=== PATIENT | male | born 1985 | race Caucasian/White ===

== ENCOUNTER 2019-11-17 16:04 | Emergency (ER) | payer SELFPAY ==
[2019-11-17 16:08] VITALS: BP 129/99; PULSE 83; RESP 16; TEMP 36.7; O2SAT 96; BMI 29.1
--- NOTE | 2019-11-17 16:18 | XR_ITS ---
WS: [id number] XR mandible min 4V [id number] REASON FOR EXAM: left tm area pain, fall FINDINGS: The mandible appears to be intact with no displacement. Finding temporal mandibular joints show no abnormalities. No dental abnormalities are seen. XR/XR mandible min 4V [id number] IMPRESSION: No definite fractures are identified in the mandible.
--- NOTE | 2019-11-17 16:18 | XR_ITS ---
WS: [id number] XR hand LT min 3V* [id number] REASON FOR EXAM: fall FINDINGS: The phalanges, metacarpals, carpals are all seen in good alignment. No definite fractures o r displacements are seen. XR/XR hand LT min 3V* [id number] IMPRESSION: Normal left hand
--- NOTE | 2019-11-17 16:18 | XR_ITS ---
WS: [id number] XR wrist LT min 3V* [id number] REASON FOR EXAM: trauma FINDINGS: The ulna and radius are normal. No definite fractures are seen. The alignment is well maint ained. The carpal bones show no displacement. The metacarpals are normal XR/XR wrist LT min 3V* [id number] IMPRESSION: Normal left wrist.
--- NOTE | 2019-11-17 16:22 | ED_ITS ---
HPI - Fall General: Chief Complaint: Fall Stated Complaint: left hand/wrist pain Time Seen by Provider: 11/17/19 16:16 History of Present Illness: HPI Narrative: Patient said he fell earlier today landing on his left wrist and thumb and also on his chin. Denies LOC. Says he does have left base thumb pain left wrist pain and that his left mandible hurts. complaint: fall Onset (ago): hour(s) Fall from: standing Fall witnessed: no Place fall occurred: home Loss of consciousness: None Context: tripped/slipped Location of injury: mouth (Pain in the left mandible area) Location of injury - extremities: Left: hand (Wrist and thumb) Severity: mild Severity scale (1-10): 3 Quality: dull Associated symptoms-after fall: Reports no associated symptoms; Denies abdominal pain, chest pain or headache(s) Review of Systems Const: Denies: fever, chills or body aches Eyes: Denies: change in vision or blurry vision ENMT: Reports: other (Left mandibular pain gait area); Denies: nasal congestion Card: Denies: chest pain or shortness of breath on exertion Resp: Denies: shortness of breath, productive cough or non-productive cough GI: Denies: abdominal pain, nausea or vomiting : Denies: difficulty urinating Musc: Reports: extremity pain and joint pain Skin/Breast: Denies: rash Neuro: Denies: headache Psych: Denies: anxiety or depression Yan/Lymph: Denies: easy bruising PFSH ED PFSH: Family History (Updated 11/08/19 @ 09:37 by Cheryl Ventura LPN) Father Diabetes Other Cancer Heart disease Hypertension Stroke Social History Smoking and tobacco status: former smoker Physical Exam Const: COMMON NORMALS: no apparent distress, average body habitus and oriented x3 HENMT: COMMON NORMALS: normocephalic HEAD & SCALP: normal to inspection and normocephalic FACE & SINUS: normal facial exam, TMJ findings tender to palpation: left (Able to converse freely able to move jaw without any difficulty) and other MOUTH: TMJ findings Eye: COMMON NORMALS: conjunctivae normal GENERAL EYE: normal appearance of both eyes CONJUNCTIVA: Yes conjunctivae normal Neck/C-Spine: COMMON NORMALS: no JVD Chest: COMMONS NORMALS: inspection of chest normal Resp: COMMON NORMALS: normal respiratory effort and clear to auscultation bilaterally AUSCULTATION: clear to auscultation bilaterally Cardio: COMMON NORMALS: no JVD, regular rate and regular rhythm RATE: regular rate RHYTHM: regular rhythm GI: COMMON NORMALS: normal to inspection, nondistended, normoactive bowel sounds Extremity: COMMON NORMALS: normal to inspection and full ROM LEFT UPPER EXTREMITY: Yes wrist (Tender) Left wrist: Yes neurovascular exam (Intact) and Yes hand & digits (Tenderness at the base of thumb) Left hand and digits: Yes neurovascular exam (Intact) Neuro: COMMON NORMALS: oriented x3 Course Vital Signs: Vital signs: Vital Signs Temperature 98.1 F 11/17/19 16:08 Pulse Rate 83 11/17/19 16:08 Respiratory Rate 16 11/17/19 16:08 Blood Pressure 129/99 11/17/19 16:08 Pulse Oximetry 96 11/17/19 16:08 Coding Level of Care Code ED Pigs Feet Cleaner for Lizz Jennings
[2019-11-17 16:57] VITALS: BP 116/80; PULSE 80; RESP 16; O2SAT 96
== END 2019-11-17 16:58 | disposition home or self-care (01) ==
LOC: ER 16:52
PROVIDERS: Emergency Provider Nurse Practitioner Family
DX: M79.642 Pain in left hand (principal); M25.532 Pain in left wrist; R68.84 Jaw pain; Z87.891 Personal history of nicotine dependence
CPT/HCPCS: 12345; 70110; 73110; 73130; 99281; 99283

== ENCOUNTER → 2019-12-20 12:06 | Outpatient (BNVA) | payer OTHER, SELFPAY | PROVIDERS: Visit Provider Nurse Practitioner Family | DX: R05 Cough (principal); J40 Bronchitis, not specified as acute or chronic; Z20.828 Contact with and (suspected) exposure to other viral communicable diseases | CPT/HCPCS: 87635 ==

== ENCOUNTER 2020-03-02 21:43 | Emergency (ER) | payer SELFPAY ==
[2020-03-02 21:51] VITALS: BP 153/101; PULSE 97; RESP 16; TEMP 36.5; O2SAT 100; BMI 29.1
--- NOTE | 2020-03-02 22:09 | W.ED.SKABFB ---
HPI - Skin/Abscess/Foreign Bdy General: Chief complaint: General Medical Stated complaint: bug bite/right leg Time Seen by Provider: 03/02/20 22:08 Source: patient Mode of arrival: ambulatory Limitations: no limitations History of Present Illness: HPI narrative: Patient is a 34-year-old male who presents to ED today with a skin lesion to his right lower extremity that he noticed a few days ago. Patient states he is concerned because area seems to be enlarging. He reports mild pain above and below the lesion. He states noticed a similar lesion to his right arm just prior to coming in for evaluation. Patient tells me he has been in the [place] frequently over the past 2 weeks. No known tick bite. Patient has not been running fevers. MD complaint: lesion Onset (ago): day(s) Tetanus up to date: yes Location: RUE and RLE Quality: burning Relieving factors: none Exacerbating factors: none Associated symptoms: Reports no associated symptoms; Deny chills, fever(s), nausea or vomiting Treatments prior to arrival: other (benadryl cream/hydrocortisone cream) Review of Systems Const: Denies: fever(s), chills, body aches, fatigue or malaise Card: Denies: chest pain Resp: Denies: dyspnea GI: Denies: nausea or vomiting Musc: Denies: neck pain, back pain or joint pain Skin/Breast: Reports: new lesions Neuro: Denies: headache(s), numbness in extremities, weakness in extremities or sensory changes PFS ED PFSH: Family History (Updated 11/08/19 @ 09:37 by Cheryl Ventura LPN) Father Diabetes Other Cancer Heart disease Hypertension Stroke Social History Smoking and tobacco status: never smoked Physical Exam Const: COMMON NORMALS: no acute distress, patient oriented x3, no limitations and alert Extremity: COMMON NORMALS: normal to inspection GENERAL: Yes normal exam except as noted Neuro: COMMON NORMALS: patient oriented x3 SENSORIUM/ORIENTATION: Yes alert Skin: OTHER: pt has one small 2mm circular erythematous macule to back of R upper arm; he has another similar appearing area to R lower leg-lesion here is more scattered but erythematous and flat-area measues approximately 1cm; there is no surrounding cellulitis/streaking/swelling/drainage Course Vital Signs: Vital signs: Vital Signs Temperature 97.7 F 03/02/20 21:51 Pulse Rate 97 03/02/20 21:51 Respiratory Rate 16 03/02/20 21:51 Blood Pressure 153/101 03/02/20 21:51 Pulse Oximetry 100 03/02/20 21:51 Discharge Plan Discharge Patient Disposition: Home, Self-Care Clinical Impression: Insect bite of leg, right Qualifiers: Encounter type: initial encounter Qualified Code(s): S80.861A - Insect bite (nonvenomous), right lower leg, initial encounter Insect bite of arm, right Qualifiers: Encounter type: initial encounter Qualified Code(s): S40.861A - Insect bite (nonvenomous) of right upper arm, initial encounter Condition: Stable Prescriptions: No Action No Known Home Medications RF: 0 Discharge Orders: Discharge Order (Routine); Ordered 03/02/20 Ordered By: Stefani Canales Activity Restrictions/Additional Instructions: Please follow up with primary care or return to ED for any worsening or concerning symptoms you may have. Discharge Date/Time: 03/02/20 22:15 Coding Level of Care Code ED Manager Employee Benefits for Lizz Jennings
== END 2020-03-02 22:15 | disposition home or self-care (01) ==
PROVIDERS: Emergency Provider Physician Assistant
DX: S80.861A Insect bite (nonvenomous), right lower leg, initial encounter (principal); S40.861A Insect bite (nonvenomous) of right upper arm, initial encounter; W57.XXXA Bitten or stung by nonvenomous insect and other nonvenomous arthropods, initial encounter
CPT/HCPCS: 12345; 99281

== ENCOUNTER 2020-03-16 19:33 | Emergency (ER) | payer SELFPAY ==
--- NOTE | 2020-03-16 19:39 | XR_ITS ---
WS: [id number] PORTABLE CHEST HISTORY: cp COMPARISON: 07/13/2019 RIGHT subclavian cardiac pacer. Lungs are clear and well expanded. No pleural effusion or pneumothorax. Cardiac size: Normal. Mediastinum/Aorta: Normal mediastinum. No osseous abnormality seen. XR/XR chest 1V portable [id number] IMPRESSION: Unremarkable portable chest.
--- NOTE | 2020-03-16 19:40 | ECG_ITS ---
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 Measurements Intervals [place] Rate: 81 P: 35 NC: 192 QRS: -87 QRSD: 180 T: 76 QT: 426 QTc: 495 Interpretive Statements ELECTRONIC VENTRICULAR PACEMAKER ABNORMAL RHYTHM ECG Compared to ECG 07/13/2019 10:42:13 No significant changes Electronically Signed On 03-17-2020 7:25:36 CDT by Feliciano Gray M.D. [id number]
[2020-03-16 19:54] VITALS: BP 150/100; PULSE 86; RESP 18; TEMP 36.7; O2SAT 96; BMI 27.6
[2020-03-16 20:22] LABS: Basophils % 0.5 %; Eosinophils # 0.2 10^3/uL (0.0-0.8); Eosinophils % 2.8 %; Hemoglobin 15.7 g/dL (11.7-16.6); Lymphocytes # 2.5 10^3/uL (0.8-4.8); Lymphocytes % 32.9 %; Mean Corpuscular HGB Conc 34.9 g/dL (30.0-36.0); Mean Corpuscular Hemoglobin 29.1 pg (28.0-34.0); Mean Corpuscular Volume 83.3 fL (80-94); Mean Platelet Volume 10.6 fL (7.4-10.4); Monocytes # 0.5 10^3/uL (0.2-0.9); Neutrophils # 4.3 10^3/uL (1.8-7.7); Neutrophils % 56.5 %; Nucleated Red Blood Cells % 0 %; Platelet Count 178 10^3/cmm (130-400); Red Cell Distribution Width 12.2 % (12.1-15.1); White Blood Count 7.6 10^3/uL (4.0-10.0)
--- NOTE | 2020-03-16 20:23 | W.ED.CHESTPA ---
HPI - Chest Pain General: Chief Complaint: Chest Pain Stated Complaint: cp Time Seen by Provider: 03/16/20 20:07 Source: patient Mode of arrival: ambulatory Limitations: no limitations History of Present Illness: HPI narrative: 34-year-old male states he started chest pain 2 hours ago. He states he been working had crushing pain in the center of his chest. He has a pacemaker and checked his heart rate was 52 days concerned his pacemaker was not working. He has a history of third-degree heart block. He states he is in pain has improved here. He denies any worsening improving factors. MD complaint: chest pain Onset (ago): hour(s) Timing of current episode: constant Pain radiation: none Quality: sharp Relieving factors: nothing Exacerbating factors: nothing Associated symptoms: Deny abdominal pain, dyspnea, fever(s), nausea or vomiting Review of Systems Const: Denies: fever(s), chills, body aches or change in appetite Eyes: Denies: blurry vision or eye discomfort ENMT: Denies: throat pain or dental pain Card: Reports: chest pain Resp: Denies: dyspnea GI: Denies: abdominal pain, nausea, vomiting or diarrhea : Denies: dysuria Musc: Denies: neck pain or back pain Skin/Breast: Denies: rash Neuro: Denies: headache(s) Psych: Denies: depression Yan/Lymph: Denies: easy bruising All/Imm: Denies: urticaria PFSH ED PFSH: Family History Father Diabetes Other Cancer Heart disease Hypertension Stroke Social History Smoking and tobacco status: never smoked Physical Exam Const: COMMON NORMALS: no acute distress, patient oriented x3 and healthy appearing HENMT: COMMON NORMALS: normocephalic and atraumatic HEAD & SCALP: normocephalic and atraumatic Eye: COMMON NORMALS: Equal, round and reactive pupils present and EOMs intact bilaterally PUPIL: Yes Equal, round and reactive pupils present Neck/C-Spine: COMMON NORMALS: full ROM and supple Chest: COMMONS NORMALS: normal inspection of the chest and normal palpation of entire chest wall Resp: COMMON NORMALS: normal respiratory effort, No retractions, No use of accessory muscles and clear to auscultation bilaterally AUSCULTATION: clear to auscultation bilaterally Cardio: COMMON NORMALS: regular rate, regular rhythm and No murmurs present (Cardio) RATE: regular rate RHYTHM: regular rhythm GI: COMMON NORMALS: Normal to inspection, nondistended, normoactive bowel sounds present, Soft to palpation, non-tender and no masses PALPATION: Yes Soft to palpation Extremity: COMMON NORMALS: normal to inspection and full ROM Neuro: COMMON NORMALS: patient oriented x3, moves all extremities and no focal motor deficits Psych: COMMON NORMALS: mental status grossly normal, Normal thought process present and cooperative THOUGHT PROCESS: Normal thought process present Skin: COMMON NORMALS: no rashes or lesions noted and no wounds GENERAL SKIN EXAM: no rashes or lesions noted Course Vital Signs: Vital signs: Vital Signs Temperature 98.1 F 03/16/20 19:54 Pulse Rate 91 03/16/20 23:39 Respiratory Rate 16 03/16/20 23:39 Blood Pressure 126/76 03/16/20 23:39 Pulse Oximetry 98 03/16/20 23:39 MDM - Chest Pain MDM Narrative: Medical decision making narrative: Patient presents here with chest pain is atypical in nature. Patient was also concerned his pacemaker was not working. Had pacemaker interrogated and is functioning. Patient's initial and repeat EKGs and troponins are normal. He feels improved here and is stable for discharge. He is to follow-up with primary care doctor in 3 to 5 days return if worsening. Lab Data: Labs: Lab Results 03/16/20 03/16/20 03/16/20 Range/Units 20:12 20:12 20:12 WBC 7.6 (4.0-10.0) 10^3/ uL RBC 5.40 H (4.1-5.3) 10^6/u L Hgb 15.7 (11.7-16.6) g/dL Hct 45.0 (42.0-52.0) % MCV 83.3 (80-94) fL MCH 29.1 (28.0-34.0) pg MCHC 34.9 (30.0-36.0) g/dL RDW 12.2 (12.1-15.1) % Plt Count 178 (130-400) 10^3/c mm MPV 10.6 H (7.4-10.4) fL Neut % (Auto) 56.5 % Lymph % (Auto) 32.9 % Ransom % (Auto) 7.0 % Eos % (Auto) 2.8 % Baso % (Auto) 0.5 % Neut # (Auto) 4.3 (1.8-7.7) 10^3/u L Lymph # (Auto) 2.5 (0.8-4.8) 10^3/u L Ransom # (Auto) 0.5 (0.2-0.9) 10^3/u L Eos # (Auto) 0.2 (0.0-0.8) 10^3/u L Baso # (Auto) 0.0 (0.0-0.1) 10^3/u L Nucleated RBC % (a uto) 0 % Nucleated RBCs # 0.0 /100WBC Sodium 139 (136-145) mmol/L Potassium 4.1 (3.5-5.1) mmol/L Chloride 103 (98-107) mmol/L Carbon Dioxide 24 (22-29) mmol/L Anion Gap 16.1 (5-19) BUN 12 (6-20) mg/dL Creatinine 1.0 (0.7-1.2) mg/dL GFR Calculation 86.6 L (90-130) mL/min Glucose 116 H (65-115) mg/dL Calculated Osmolal ity 285 (285-295) mOsm/k g Calcium 10.1 (8.5-10.5) mg/dL Total Bilirubin 0.2 (0.15-1.2) mg/dL AST 5 (0-40) U/L ALT < 5 (0-41) U/L Alkaline Phosphata se 102 (40-130) IU/L Troponin T Baselin e 6 (0-15) ng/L Troponin T 120 Min [place] (0-15) ng/L Delta Troponin T (0-10) ABS# Total Protein 7.7 (6.6-8.7) g/dL Albumin 4.6 (3.5-5.2) g/dL Globulin 3.1 (1.3-4.6) g/dL 03/16/20 Range/Units 21:50 WBC (4.0-10.0) 10^3/ uL RBC (4.1-5.3) 10^6/u L Hgb (11.7-16.6) g/dL Hct (42.0-52.0) % MCV (80-94) fL MCH (28.0-34.0) pg MCHC (30.0-36.0) g/dL RDW (12.1-15.1) % Plt Count (130-400) 10^3/c mm MPV (7.4-10.4) fL Neut % (Auto) % Lymph % (Auto) % [place]ansom % (Auto) % Eos % (Auto) % Baso % (Auto) % Neut # (Auto) (1.8-7.7) 10^3/u L Lymph # (Auto) (0.8-4.8) 10^3/u L Ransom # (Auto) (0.2-0.9) 10^3/u L Eos # (Auto) (0.0-0.8) 10^3/u L Baso # (Auto) (0.0-0.1) 10^3/u L Nucleated RBC % (a uto) % Nucleated RBCs # /100WBC Sodium (136-145) mmol/L Potassium (3.5-5.1) mmol/L Chloride (98-107) mmol/L Carbon Dioxide (22-29) mmol/L Anion Gap (5-19) BUN (6-20) mg/dL Creatinine (0.7-1.2) mg/dL GFR Calculation (90-130) mL/min Glucose (65-115) mg/dL Calculated Osmolal ity (285-295) mOsm/k g Calcium (8.5-10.5) mg/dL Total Bilirubin (0.15-1.2) mg/dL AST (0-40) U/L ALT (0-41) U/L Alkaline Phosphata se (40-130) IU/L Troponin T Baselin e (0-15) ng/L Troponin T 120 Min [place] 6.00 (0-15) ng/L Delta Troponin T 0 (0-10) ABS# Total Protein (6.6-8.7) g/dL Albumin (3.5-5.2) g/dL Globulin (1.3-4.6) g/dL Imaging Data^: CXR: Attestation: I personally reviewed and interpreted this imaging study as follows: My impression: no acute abnormality EKG Data^: EKG 1: Attestation: I personally reviewed and interpreted this EKG as follows: EKG interpretation date: 03/16/20 EKG interpretation time: 19:52 Interpretation: ventricular pacemaker hr [address] or t wave abnormalities qrs 180 qtc 463 EKG 2: Attestation: I personally reviewed and interpreted this EKG as follows: EKG interpretation date: 03/16/20 EKG interpretation time: 21:57 Interpretation: atrial pacemaker hr [address] or t wave abnormalities qrs 189 qtc 472 Discharge Plan Discharge Patient Disposition: Home, Self-Care Clinical Impression: Chest pain Qualifiers: Chest pain type: unspecified Qualified Code(s): R07.9 - Chest pain, unspecified Condition: Stable Prescriptions: No Action No Known Home Medications RF: 0 Discharge Orders: Discharge Order (Routine); Ordered 03/16/20 Ordered By: Trace Peck Referrals: Man Walker MD [Physician] - 1-3 days Discharge Diet: Advance as tolerated Discharge Activity: Resume usual activity Patient Instructions: Chest Pain (ED) Coding Level of Care Code ED Construction Driver for Chg Fwd Exam Comprehensive
[2020-03-16 20:40] LABS: Albumin Level 4.6 g/dL (3.5-5.2); Alkaline Phosphatase 102 IU/L (40-130); Anion Gap 16.1 (5-19); Blood Urea Nitrogen 12 mg/dL (6-20); Calcium 10.1 mg/dL (8.5-10.5); Carbon Dioxide 24 mmol/L (22-29); Chloride 103 mmol/L (98-107); Globulin 3.1 g/dL (1.3-4.6); Glomerular Filtration Rate 86.6 mL/min (90-130); Glucose 116 mg/dL (65-115); Osmolality Calculated 285 mOsm/kg (285-295); Potassium 4.1 mmol/L (3.5-5.1); Sodium 139 mmol/L (136-145); Total Bilirubin 0.2 mg/dL (0.15-1.2); Total Protein 7.7 g/dL (6.6-8.7)
[2020-03-16 20:41] VITALS: BP 162/100; PULSE 82; RESP 15; O2SAT 97
[2020-03-16 20:51] LABS: Alanine Aminotransferase < 5 U/L (0-41); Aspartate Amino Transferase 5 U/L (0-40)
--- NOTE | 2020-03-16 21:40 | ECG_ITS ---
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 Measurements Intervals [place] Rate: 73 P: 30 ND: 175 QRS: -90 QRSD: 189 T: 74 QT: 446 QTc: 494 Interpretive Statements ELECTRONIC ATRIAL PACEMAKER ELECTRONIC VENTRICULAR PACEMAKER ABNORMAL RHYTHM ECG Compared to ECG 07/13/2019 10:42:13 No significant changes Electronically Signed On 03-17-2020 7:27:01 CDT by Feliciano Gray M.D. [email or web address]
[2020-03-16 21:47] VITALS: BP 123/87; PULSE 78; O2SAT 97
[2020-03-16 21:59] LABS: Troponin(5th) Baseline 6 ng/L (0-15)
[2020-03-16 22:10] LABS: Troponin 5 2HR Delta 0 ABS# (0-10)
[2020-03-16 22:55] VITALS: BP 128/80; PULSE 80; RESP 18; O2SAT 100
--- NOTE | 2020-03-16 23:23 | PC.NURSE ---
ATTEMPTED TO CALL [employer] FOR PACEMAKER INTERROGTION
[2020-03-16 23:39] VITALS: BP 126/76; PULSE 91; RESP 16; O2SAT 98
== END 2020-03-17 00:36 | disposition home or self-care (01) ==
PROVIDERS: Emergency Provider Emergency Medicine
DX: R07.9 Chest pain, unspecified (principal)
CPT/HCPCS: 12345; 71045; 80053; 84484; 85025; 93005; 99283; 99284

== ENCOUNTER 2020-05-15 21:10 | Emergency (ER) | payer SELFPAY ==
[2020-05-15 21:14] VITALS: BP 138/86; PULSE 96; RESP 19; TEMP 36.6; O2SAT 97; BMI 29.1
--- NOTE | 2020-05-15 21:26 | XRR_ITS ---
PROCEDURE INFORMATION: Exam: XR Chest, 1 View Exam date and time: 05/15/2020 9:52 PM Age: 34 years old Clinical indication: Cough TECHNIQUE: Imaging protocol: XR of the chest Views: 1 view. COMPARISON: CR XR chest 1V portable [id number] 03/16/2020 8:08 PM FINDINGS: Tubes, catheters and devices: Atrioventricular pacemaker. Lungs: Hyperinflation and mild interstitial prominence without acute infiltrate. Pleural space: No pleural effusion. Heart/Mediastinum: No cardiomegaly. Bones/joints: Median sternotomy. When correlating with the previous study, no significant interval changes are present. XR/XR chest 1V portable [id number] IMPRESSION: Hyperinflation and mild interstitial prominence without acute infiltrate.
--- NOTE | 2020-05-15 21:38 | W.ED.GENADLT ---
HPI - General Adult General: Chief complaint: General Medical Stated complaint: covid symptoms Time Seen by Provider: 05/15/20 21:21 Source: patient Mode of arrival: ambulatory Limitations: no limitations History of Present Illness: HPI narrative: Frankie is a 34-year-old male who comes in complaining of productive cough, muscle aches and pains and malaise. Symptoms have been present for 1 week. Patient was not concerned about the symptoms for himself but when his found out he was feeling this way she instructed him to come to the hospital. He is not noticed anything that makes his symptoms better or worse. Patient states that he feels tired and fatigued but has not had a fever. He denies any sore throat, loss of sense of taste or loss of sense of smell. Patient does not have any no known covert exposures. He states he otherwise feels okay just tired and fatigued primarily. Associated symptoms: Reports malaise; Deny chest pain, confusion, diaphoresis, dyspnea, headache(s), nausea, rash, palpitations, syncope or vomiting Review of Systems Const: Reports: body aches, fatigue and malaise; Denies: fever(s), chills or diaphoresis Eyes: Denies: change in vision, blurry vision, photophobia, eye discomfort, eye discharge or eye redness ENMT: Denies: throat pain, odynophagia, hoarseness, swelling of lips/tongue, ear or mastoid pain, ear discharge, change in hearing or nasal discharge Card: Denies: chest pain, palpitations, irregular heart rhythm, edema, lightheadedness, syncope, pre-syncope, dyspnea on exertion or orthopnea Resp: Reports: productive cough; Denies: dyspnea, non-productive cough, wheezing, hemoptysis or chest congestion GI: Denies: abdominal pain, nausea, vomiting, hematemesis, coffee ground emesis, heartburn, diarrhea, constipation, GI cramping, hematochezia or melena : Denies: flank pain, dysuria, urinary frequency, urinary urgency or hematuria Musc: Denies: neck pain, back pain, extremity pain, extremity swelling, joint pain, joint swelling, joint redness, joint warmth or joint stiffness Skin/Breast: Denies: rash, pruritus, erythema or skin tenderness Neuro: Denies: headache(s), numbness in extremities, weakness in extremities, sensory changes, lack of coordination, difficulty walking, dizziness, vertigo, confusion, Slurred speech present or seizure-like activity Yan/Lymph: Denies: easy bruising, easy bleeding, petechiae, purpura or enlarged lymph nodes All/Imm: Denies: urticaria, throat swelling, tongue swelling, facial swelling or acute wheezing PFSH ED PFSH: Medical History AV heart block CHF (congestive heart failure) Congenital heart disease GERD (gastroesophageal reflux disease) HTN (hypertension) Seizure SVT (supraventricular tachycardia) VSD (ventricular septal defect) Surgical History History of cardiac radiofrequency ablation (RFA) S/P appendectomy S/P cardiac pacemaker procedure S/P knee surgery S/P knee surgery Left S/P rotator cuff repair Left 08/26/2014 S/P tonsillectomy S/P vasectomy Family History Father Diabetes Other Cancer Heart disease Hypertension Stroke Social History Smoking and tobacco status: never smoked Physical Exam Const: COMMON NORMALS: no acute distress, patient oriented x3, no limitations, healthy appearing and well nourished GENERAL APPEARANCE: cooperative, well kempt and well developed HENMT: COMMON NORMALS: normocephalic, atraumatic, external ears normal, EAC's normal and Normal external nose present HEAD & SCALP: normal to inspection, normocephalic and atraumatic FACE & SINUS: normal facial exam and face symmetric NOSE: Normal external nose present and Normal nares present EXTERNAL EAR: Yes external ears normal EXTERNAL AUDITORY CANAL: EAC's normal MOUTH: Normal oral and palatal mucosa present, lip normal and tongue normal Eye: COMMON NORMALS: Equal, round and reactive pupils present and conjunctivae normal GENERAL EYE: appearance normal, both eyes and all related structures ALIGNMENT: Yes alignment normal PERIORBITAL: periorbital findings normal EYELID: eyelids normal CONJUNCTIVA: Yes conjunctivae normal SCLERA: sclerae normal PUPIL: Yes Equal, round and reactive pupils present Neck/C-Spine: COMMON NORMALS: full ROM, no lymphadenopathy, supple, no meningeal signs and no JVD GENERAL: Yes normal visual inspection and Yes trachea midline Chest: COMMONS NORMALS: normal inspection of the chest and normal palpation of entire chest wall Resp: COMMON NORMALS: normal respiratory effort, No retractions, No use of accessory muscles and clear to auscultation bilaterally EFFORT & INSPECTION: Yes able to speak in complete sentences and Yes symmetric chest movement AUSCULTATION: clear to auscultation bilaterally, no crackles, no rales, no rhonchi and no wheezes Cardio: COMMON NORMALS: no JVD, regular rate, regular rhythm, S1 normal heart sound present and S2 normal heart sound present RATE: regular rate RHYTHM: regular rhythm HEART SOUNDS: S1 normal heart sound present, S2 normal heart sound present, no click, no gallops, no murmurs, no rubs and abnormal split S2 GI: COMMON NORMALS: Soft to palpation and No hepatosplenomegaly present PALPATION: Yes Soft to palpation, No Tenderness to palpation present (GI), No Guarding due to palpation present (GI), No Rigid due to palpation, Yes No hepatosplenomegaly present, No Hernia present, No Palpable mass present and No Pulsatile mass present : COMMON NORMALS: Yes no CVA tenderness BLADDER/KIDNEY EXAM: Yes no CVA tenderness Back/Pelvis: COMMON NORMALS: no CVA tenderness, thoracic and lumbar spine normal to inspection, no thoracic nor lumbar tenderness and thoraco-lumbar ROM normal Extremity: COMMON NORMALS: normal to inspection, full ROM, capillary refill normal, no joint enlargement, no clubbing, cyanosis or edema and no calf tenderness Neuro: COMMON NORMALS: patient oriented x3, CN's II-XII intact bilaterally, moves all extremities, no focal motor deficits and no sensory deficits noted MENINGEAL SIGNS: Yes no meningeal signs SPEECH: speech normal Psych: COMMON NORMALS: mental status grossly normal, Normal thought process present, cooperative, normal affect, speech normal and activity/motor behavior normal APPEARANCE: Yes well kempt SPEECH: Yes normal speech THOUGHT PROCESS: Normal thought process present Skin: COMMON NORMALS: no rashes or lesions noted, turgor normal, no jaundice, no petechiae and no mottling GENERAL SKIN EXAM: no rashes or lesions noted and turgor normal Course Vital Signs: Vital signs: Vital Signs Temperature 98.7 F 05/15/20 23:12 Pulse Rate 72 05/15/20 23:12 Respiratory Rate 16 05/15/20 23:12 Blood Pressure 130/74 05/15/20 23:12 Pulse Oximetry 100 05/15/20 23:12 MDM - General Adult MDM Narrative: Medical decision making narrative: Frankie is a nice 34-year-old male who comes in with flulike symptoms. His flu is negative, his COVID-19 is negative and his chest x-ray is clear. There is no sign of urinary tract infection. I have informed him this still could be some type of viral syndrome. Because of his wheezing and productive cough I will go and place him on antibiotics. Place him on steroids and give him an inhaler as well. He agrees to return should her symptoms change or worsen but at this time he is ready for discharge. I see evidence of acute life-threatening problem at this time. Lab Data: Labs: Lab Results 05/15/20 05/15/20 05/15/20 Range/Units 21:40 21:40 21:40 WBC 7.5 (4.0-10.0) 10^3/ uL RBC 5.51 H (4.1-5.3) 10^6/u L Hgb 15.7 (11.7-16.6) g/dL Hct 46.5 (42.0-52.0) % MCV 84.4 (80-94) fL MCH 28.5 (28.0-34.0) pg MCHC 33.8 (30.0-36.0) g/dL RDW 12.2 (12.1-15.1) % Plt Count 175 (130-400) 10^3/c mm MPV 10.8 H (7.4-10.4) fL Neut % (Auto) 61.6 % Lymph % (Auto) 28.9 % [place] % (Auto) 6.0 % Eos % (Auto) 2.8 % Baso % (Auto) 0.4 % Neut # (Auto) 4.62 (1.8-7.7) 10^3/u L Lymph # (Auto) 2.2 (0.8-4.8) 10^3/u L [place] # (Auto) 0.5 (0.2-0.9) 10^3/u L Eos # (Auto) 0.2 (0.0-0.8) 10^3/u L Baso # (Auto) 0.0 (0.0-0.1) 10^3/u L Nucleated RBC % (a uto) 0 % Nucleated RBCs # 0.0 /100WBC Sodium 144 (136-145) mmol/L Potassium 3.4 L (3.5-5.1) mmol/L Chloride 106 (98-107) mmol/L Carbon Dioxide 27 (22-29) mmol/L Anion Gap 14.4 (5-19) BUN 8 (6-20) mg/dL Creatinine 1.0 (0.7-1.2) mg/dL GFR Calculation 86.6 L (90-130) mL/min Glucose 108 (65-115) mg/dL Calculated Osmolal ity 294 (285-295) mOsm/k g Calcium 9.8 (8.5-10.5) mg/dL Total Bilirubin 0.3 (0.15-1.2) mg/dL AST 34 (0-40) U/L ALT 25 (0-41) U/L Alkaline Phosphata se 101 (40-130) IU/L Total Protein 8.2 (6.6-8.7) g/dL Albumin 4.9 (3.5-5.2) g/dL Globulin 3.3 (1.3-4.6) g/dL Urine Color (Yellow) Urine Appearance (CLEAR) Urine pH (5-7) Ur Specific Gravit y (1.005-1.030) Urine Protein (Negative) Urine Glucose (UA) (Normal) Urine Ketones (Negative) Urine Blood (Negative) Urine Nitrate (Negative) Urine Bilirubin (NEGATIVE) Urine Urobilinogen (Negative) mg/dL Ur Leukocyte Malena ase (Negative) Influenza Type A A g (Negative) Influenza Type B A g (Negative) SARS-CoV-2 Ag (Rap id) Negative (Negative) 05/15/20 05/15/20 Range/Units 22:25 22:25 WBC (4.0-10.0) 10^3/ uL RBC (4.1-5.3) 10^6/u L Hgb (11.7-16.6) g/dL Hct (42.0-52.0) % MCV (80-94) fL MCH (28.0-34.0) pg MCHC (30.0-36.0) g/dL RDW (12.1-15.1) % Plt Count (130-400) 10^3/c mm MPV (7.4-10.4) fL Neut % (Auto) % Lymph % (Auto) % [place] % (Auto) % Eos % (Auto) % Baso % (Auto) % Neut # (Auto) (1.8-7.7) 10^3/u L Lymph # (Auto) (0.8-4.8) 10^3/u L [place] # (Auto) (0.2-0.9) 10^3/u L Eos # (Auto) (0.0-0.8) 10^3/u L Baso # (Auto) (0.0-0.1) 10^3/u L Nucleated RBC % (a uto) % Nucleated RBCs # /100WBC Sodium (136-145) mmol/L Potassium (3.5-5.1) mmol/L Chloride (98-107) mmol/L Carbon Dioxide (22-29) mmol/L Anion Gap (5-19) BUN (6-20) mg/dL Creatinine (0.7-1.2) mg/dL GFR Calculation (90-130) mL/min Glucose (65-115) mg/dL Calculated Osmolal ity (285-295) mOsm/k g Calcium (8.5-10.5) mg/dL Total Bilirubin (0.15-1.2) mg/dL AST (0-40) U/L ALT (0-41) U/L Alkaline Phosphata se (40-130) IU/L Total Protein (6.6-8.7) g/dL Albumin (3.5-5.2) g/dL Globulin (1.3-4.6) g/dL Urine Color Yellow (Yellow) Urine Appearance Clear (CLEAR) Urine pH 6.5 (5-7) Ur Specific Gravit y 1.020 (1.005-1.030) Urine Protein Neg (Negative) Urine Glucose (UA) Norm (Normal) Urine Ketones Negative (Negative) Urine Blood Neg (Negative) Urine Nitrate Negative (Negative) Urine Bilirubin Neg (NEGATIVE) Urine Urobilinogen 4 H (Negative) mg/dL Ur Leukocyte Malena ase Negative (Negative) Influenza Type A A g Negative (Negative) Influenza Type B A g Negative (Negative) SARS-CoV-2 Ag (Rap id) (Negative) Imaging Data^: CXR: Attestation: I personally reviewed and interpreted this imaging study as follows: My impression: No acute cardiopulmonary findings. Discharge Plan Discharge Patient Disposition: Home Clinical Impression: Bronchitis Condition: Stable Prescriptions: New prednisone 10 mg tablet 20 mg PO BID 5 Days Qty: 20 RF: 0 albuterol sulfate 90 mcg/actuation HFA aerosol inhaler 2 inh INHALATION Q4H PRN (Reason: shortness of breath or wheezing) Qty: 6.7 RF: 0 Augmentin 875-125 mg tablet 1 tab PO BID 10 Days Qty: 20 RF: 0 No Action Pain Relief Adult 500 mg/15 mL Liquid 1,000 mg PO Q6H PRN (Reason: HEADACHES) RF: 0 Discharge Orders: Discharge Order (Routine); Ordered 05/15/20 Ordered By: Ana Morse Referrals: Jessica Velez DO [Physician] - 1-3 days Discharge Diet: Advance as tolerated Discharge Activity: Increase activity as tolerated Patient Instructions: Acute Bronchitis (ED) Activity Restrictions/Additional Instructions: Please return to the ER immediately for any of the signs or symptoms listed on your discharge instruction sheets, worsening/changing of your symptoms, you are not getting better as quickly as expected, or for ANY other cause or concerns. 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
[2020-05-15 22:15] LABS: Basophils % 0.4 %; Eosinophils # 0.2 10^3/uL (0.0-0.8); Eosinophils % 2.8 %; Hematocrit 46.5 % (42.0-52.0); Hemoglobin 15.7 g/dL (11.7-16.6); Lymphocytes # 2.2 10^3/uL (0.8-4.8); Lymphocytes % 28.9 %; Mean Corpuscular HGB Conc 33.8 g/dL (30.0-36.0); Mean Corpuscular Hemoglobin 28.5 pg (28.0-34.0); Mean Corpuscular Volume 84.4 fL (80-94); Mean Platelet Volume 10.8 fL (7.4-10.4); Monocytes # 0.5 10^3/uL (0.2-0.9); Neutrophils # 4.62 10^3/uL (1.8-7.7); Neutrophils % 61.6 %; Nucleated Red Blood Cells % 0 %; Platelet Count 175 10^3/cmm (130-400); Red Blood Count 5.51 10^6/uL (4.1-5.3); Red Cell Distribution Width 12.2 % (12.1-15.1); White Blood Count 7.5 10^3/uL (4.0-10.0)
[2020-05-15 22:24] LABS: SARS Covid-2 Antigen Negative (Negative)
[2020-05-15 22:26] LABS: Alanine Aminotransferase 25 U/L (0-41); Albumin Level 4.9 g/dL (3.5-5.2); Alkaline Phosphatase 101 IU/L (40-130); Anion Gap 14.4 (5-19); Aspartate Amino Transferase 34 U/L (0-40); Blood Urea Nitrogen 8 mg/dL (6-20); Calcium 9.8 mg/dL (8.5-10.5); Carbon Dioxide 27 mmol/L (22-29); Chloride 106 mmol/L (98-107); Globulin 3.3 g/dL (1.3-4.6); Glomerular Filtration Rate 86.6 mL/min (90-130); Glucose 108 mg/dL (65-115); Osmolality Calculated 294 mOsm/kg (285-295); Potassium 3.4 mmol/L (3.5-5.1); Sodium 144 mmol/L (136-145); Total Bilirubin 0.3 mg/dL (0.15-1.2); Total Protein 8.2 g/dL (6.6-8.7)
[2020-05-15 22:47] LABS: Add Urine Microscopic? NO
[2020-05-15] MEDS: albuterol 8 gm MDI 2 PUFF INHALATION (23:03)
[2020-05-15 23:04] VITALS: PULSE 90; RESP 16; O2SAT 98
[2020-05-15 23:06] LABS: Influenza A by IFA Negative (Negative); Influenza B by IFA Negative (Negative)
[2020-05-15 23:12] VITALS: BP 130/74; PULSE 72; RESP 16; TEMP 37.1; O2SAT 100
[2020-05-15 23:12] LABS: Bilirubin Urine Neg (NEGATIVE); Blood Urine Neg (Negative); Glucose Urine UA Norm (Normal); Ketones Urine Negative (Negative); Leukocyte Esterase Urine Negative (Negative); Nitrate Urine Negative (Negative); Protein Urine Neg (Negative); Urine Appearance Clear (CLEAR); Urine Color Yellow (Yellow); Urobilinogen Urine 4 mg/dL (Negative); pH Urine 6.5 (5-7)
== END 2020-05-15 23:13 | disposition home or self-care (01) ==
PROVIDERS: Emergency Provider Emergency Medicine
DX: J40 Bronchitis, not specified as acute or chronic (principal); I11.0 Hypertensive heart disease with heart failure; I50.9 Heart failure, unspecified; Z95.0 Presence of cardiac pacemaker
CPT/HCPCS: 12345; 71045; 80053; 81003; 85025; 87040; 87426; 87804; 94640; 99281; 99283; J3535

== ENCOUNTER → 2020-06-12 12:30 | Outpatient (BNVA) | payer SELFPAY | PROVIDERS: Visit Provider Nurse Practitioner | DX: J02.9 Acute pharyngitis, unspecified (principal) | CPT/HCPCS: 87071; 87880 ==

== ENCOUNTER 2020-11-22 12:47 | Emergency (ER) | payer SELFPAY ==
[2020-11-22 13:31] VITALS: BP 136/92; PULSE 77; RESP 14; TEMP 36.8; O2SAT 97; BMI 29.8
--- NOTE | 2020-11-22 14:00 | ED_ITS ---
HPI - Head Injury General: Chief complaint: Head Injury Stated complaint: HEAD INJURY Time Seen by Provider: 11/22/20 14:00 [facility] ED PFSH: Medical History (Updated 11/07/20 @ 09:34 by Desirae Overton APRN) AV heart block CHF (congestive heart failure) Congenital heart disease Fatigue GERD (gastroesophageal reflux disease) HTN (hypertension) Hx of cardiac pacemaker Hx of ventricular septal defect Major depressive disorder, recurrent, moderate Seizure SVT (supraventricular tachycardia) VSD (ventricular septal defect) Surgical History History of cardiac radiofrequency ablation (RFA) S/P appendectomy S/P cardiac pacemaker procedure S/P knee surgery S/P knee surgery Left S/P rotator cuff repair Left 08/26/2014 S/P tonsillectomy S/P vasectomy Family History Father Diabetes Other Cancer Heart disease Hypertension Stroke Social History (Updated 10/03/20 @ 10:03 by Mariel Proctor LPN) Smoking and tobacco status: former smoker Quit status (tobacco): has quit using tobacco Year quit tobacco: 12/25/2017 Former quit date comment: 1 PPD for 10 years Second hand smoke exposure: Yes Current gender identity: Male Course Vital Signs: Vital signs: Vital Signs Temperature 98.2 F 11/22/20 13:31 Pulse Rate 77 11/22/20 13:31 Respiratory Rate 14 11/22/20 13:31 Blood Pressure 136/92 11/22/20 13:31 Pulse Oximetry 97 11/22/20 13:31 Discharge Plan Discharge Condition: Good Prescriptions: No Action ibuprofen [IBU-200] 200 mg tablet 200 mg PO Q6H PRNRF: 0 fluoxetine [Prozac] 40 mg capsule 40 mg PO QAM Qty: 30 RF: 1 loperamide 2 mg tablet 2 mg PO DAILY PRNRF: 0 esomeprazole magnesium [Nexium] 20 mg capsule,delayed release(DR/EC) 20 mg PO DAILY RF: 0 Pain Relief Adult 500 mg/15 mL Liquid 1,000 mg PO Q6H PRN (Reason: HEADACHES) RF: 0 albuterol sulfate 90 mcg/actuation HFA aerosol inhaler 2 inh INHALATION Q4H PRN (Reason: shortness of breath or wheezing) Qty: 6.7 RF: 0 Coding Level of Care Code 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
--- NOTE | 2020-11-22 14:11 | XR_ITS ---
WS: [id number] Left hand, 3 views, 11/22/2020 Clinical Data: nail injury Comparison: Left hand, 11/17/2019 Findings: No fractures or dislocations are seen. The soft tissues are unremarkable. The joint spaces are normal XR/XR hand LT min 3V* 46483 Impression: Negative left hand.
--- NOTE | 2020-11-22 14:11 | XR_ITS ---
WS: [id number] Cervical spine, 3 views, 11/22/2020 Clinical Data: injury Comparison: Cervical spine, 03/02/2014. Findings: No compression fractures are seen. The disc heights are normal. There is no prevertebral so ft tissue swelling. The odontoid is unremarkable. The soft tissues of the neck and the lung apices ar e normal. There are midline sternotomy sutures and a permanent pacemaker with the generator in the ri t axilla. XR/XR cervical spine 3V* 56513 Impression: Negative cervical spine.
--- NOTE | 2020-11-22 14:12 | W.ED.GENADLT ---
HPI - General Adult General: Chief complaint: Head Injury Stated complaint: HEAD INJURY Time Seen by Provider: 11/22/20 14:00 Source: patient Mode of arrival: EMS Limitations: no limitations History of Present Illness: HPI narrative: Patient is a 34-year-old male who presents to ED today via EMS for evaluation after a wooden awning fell on him. He tells me he blunted the fall with his left hand. He states the nail on the awning punctured his hand. Last tetanus is unknown. He states the awning did strike his head. There was no LOC. Patient does not complain of a headache. There are no external signs of trauma. He does not complain of lightheadedness/dizziness. He has no trouble with ambulation or articulation. He complained of some mild neck pain but refused c-collar. Patient refuses imaging of his head. Associated symptoms: Deny chest pain, confusion, dyspnea, headache(s) or vomiting Review of Systems Eyes: Denies: change in vision, blurry vision, photophobia, floaters or seeing flashes Card: Denies: chest pain Resp: Denies: dyspnea GI: Denies: abdominal pain, nausea or vomiting Musc: Reports: neck pain and extremity pain (L hand); Denies: back pain, extremity swelling, joint pain, joint swelling, joint redness, joint stiffness or limited range of motion Neuro: Denies: headache(s), numbness in extremities, weakness in extremities, sensory changes, difficulty walking, frequent falls, dizziness, vertigo, confusion, behavioral changes, Slurred speech present or difficulty communicating thoughts [facility] ED PFSH: Medical History (Updated 11/22/20 @ 14:58 by AFUA Dorsey) AV heart block CHF (congestive heart failure) Congenital heart disease Fatigue GERD (gastroesophageal reflux disease) HTN (hypertension) Hx of cardiac pacemaker Hx of ventricular septal defect Major depressive disorder, recurrent, moderate Seizure SVT (supraventricular tachycardia) VSD (ventricular septal defect) Surgical History History of cardiac radiofrequency ablation (RFA) S/P appendectomy S/P cardiac pacemaker procedure S/P knee surgery S/P knee surgery Left S/P rotator cuff repair Left 08/26/2014 S/P tonsillectomy S/P vasectomy Family History Father Diabetes Other Cancer Heart disease Hypertension Stroke Social History (Updated 10/03/20 @ 10:03 by Mariel Proctor LPN) Smoking and tobacco status: former smoker Quit status (tobacco): has quit using tobacco Year quit tobacco: 12/25/2017 Former quit date comment: 1 PPD for 10 years Second hand smoke exposure: Yes Current gender identity: Male Physical Exam Const: COMMON NORMALS: no acute distress, average body habitus, patient oriented x3, no limitations, healthy appearing, alert and well nourished GENERAL APPEARANCE: cooperative ORIENTATION/CONSCIOUSNESS: Yes awake, Yes oriented to person, Yes oriented to place and Yes oriented to time HENMT: COMMON NORMALS: normocephalic and atraumatic HEAD & SCALP: normal to inspection, normocephalic and atraumatic Eye: COMMON NORMALS: Equal, round and reactive pupils present and EOMs intact bilaterally GENERAL EYE: appearance normal, both eyes and all related structures PUPIL: Yes Equal, round and reactive pupils present Neck/C-Spine: COMMON NORMALS: full ROM CERVICAL SPINE: Yes cervical ROM normal, No pain with cervical ROM, No Cervical spine tenderness and No Paracervical muscle tenderness Back/Pelvis: COMMON NORMALS: thoracic and lumbar spine normal to inspection, no thoracic nor lumbar tenderness and thoraco-lumbar ROM normal Extremity: NARRATIVE EXTREMITY EXAM: small puncture marco a to L proximal palm; no swelling, redness, drainage; full ROM; NV intact Neuro: OLESYA COMA SCALE: document GCS findings Olesya coma scale eye opening: Spontaneous Errol coma scale verbal response: Orientated Olesya coma scale motor response: Obey commands Olesya coma scale total score: 15 COMMON NORMALS: patient oriented x3, CN's II-XII intact bilaterally, moves all extremities, no focal motor deficits, no sensory deficits noted and gait normal SENSORIUM/ORIENTATION: Yes alert, Yes oriented to person, Yes oriented to place and Yes oriented to time Skin: NARRATIVE SKIN EXAM: see extremity exam; otherwise normal skin assessment Course Vital Signs: Vital signs: Vital Signs Temperature 98.2 F 11/22/20 13:31 Pulse Rate 77 11/22/20 13:31 Respiratory Rate 14 11/22/20 13:31 Blood Pressure 136/92 11/22/20 13:31 Pulse Oximetry 97 11/22/20 13:31 MDM - General Adult MDM Narrative: Medical decision making narrative: XRs negative. Patient refusing CT head imaging. Tetanus updated. Imaging Data^: XR cervical: Radiologist's impression: [facility] [address] [address] XRay Report Signed Patient: Ariel Rob Unit #: [id number] : 1985 Age/Sex: 34 / M ADM Date: 11/22/20 Loc: ER Room/Bed: Attending Dr: Ordering Provider/Ordering MD: Stefani Canales Date of Service: 11/22/20 Procedure(s): XR cervical spine 3V* 31183 Accession Number(s): [id number] Report Number: [id number] WS: [id number] Cervical spine, 3 views, 11/22/2020 Clinical Data: injury Comparison: Cervical spine, 03/02/2014. Findings: No compression fractures are seen. The disc heights are normal. There is no prevertebral soft tissue swelling. The odontoid is unremarkable. The soft tissues of the neck and the lung apices are normal. There are midline sternotomy sutures and a permanent pacemaker with the generator in the right axilla. XR/XR cervical spine 3V* 34029 Impression: Negative cervical spine. Dictated By: Veronica Dias MD Signed By: Veronica Dias MD Signed Date/Time: 11/22/20 1436 DD/ 1434 XR L hand: Radiologist's impression: [facility] [address] [address] XRay Report Signed Patient: Ariel Rob Unit #: [id number] : 1985 Age/Sex: 34 / M ADM Date: 11/22/20 Loc: ER Room/Bed: Attending Dr: Ordering Provider/Ordering MD: Stefani Canales Date of Service: 11/22/20 Procedure(s): XR hand LT min 3V* 73154 Accession Number(s): [id number] Report Number: [id number] WS: [id number] Left hand, 3 views, 11/22/2020 Clinical Data: nail injury Comparison: Left hand, 11/17/2019 Findings: No fractures or dislocations are seen. The soft tissues are unremarkable. The joint spaces are normal XR/XR hand LT min 3V* 62047 Impression: Negative left hand. Dictated By: Veronica Dias MD Signed By: Veronica Dias MD Signed Date/Time: 11/22/201436 DD/ 35 Discharge Plan Discharge Patient Disposition: Home Clinical Impression: Acute neck pain Puncture wound of left hand Qualifiers: Encounter type: initial encounter Foreign body presence: without foreign body Qualified Code(s): S61.432A - Puncture wound without foreign body of left hand, initial encounter Condition: Stable Prescriptions: No Action ibuprofen [IBU-200] 200 mg tablet 200 mg PO Q6H PRNRF: 0 fluoxetine [Prozac] 40 mg capsule 40 mg PO QAM Qty: 30 RF: 1 loperamide 2 mg tablet 2 mg PO DAILY PRNRF: 0 esomeprazole magnesium [Nexium] 20 mg capsule,delayed release(DR/EC) 20 mg PO DAILY RF: 0 Pain Relief Adult 500 mg/15 mL Liquid 1,000 mg PO Q6H PRN (Reason: HEADACHES) RF: 0 albuterol sulfate 90 mcg/actuation HFA aerosol inhaler 2 inh INHALATION Q4H PRN (Reason: shortness of breath or wheezing) Qty: 6.7 RF: 0 Discharge Orders: Discharge ED (Routine); Ordered 11/22/20 Ordered By: Stefani Canales Referrals: Veronica Schwartz FNP [Primary Care Provider] - Patient Instructions: Puncture Wound (ED), Opioid Safety Activity Restrictions/Additional Instructions: [facility] is committed to fighting the nationwide opiate epidemic. We are providing ALL patients with information regarding opiate safety. If you received opiate pain medication during your stay or if you received a prescription for opiate pain medication-please review this handout. If not, you may disregard. Thank you. Keep wound clean with warm soapy water several times daily. Monitor for signs of infection such as redness, swelling, increased pain, drainage. Seek medical re-evaluation of these occur. 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
[2020-11-22] MEDS: tetanus-diphtheria tox (adult) 0.5 mL SDV IM (14:32)
== END 2020-11-22 15:20 | disposition home or self-care (01) ==
PROVIDERS: Emergency Provider Physician Assistant; PCP Nurse Practitioner Family
DX: M54.2 Cervicalgia (principal); S61.432A Puncture wound without foreign body of left hand, initial encounter; W45.0XXA Nail entering through skin, initial encounter; I11.0 Hypertensive heart disease with heart failure; I50.9 Heart failure, unspecified; Z95.0 Presence of cardiac pacemaker; Z87.891 Personal history of nicotine dependence; Z23 Encounter for immunization
CPT/HCPCS: 72040; 73130; 90471; 90714; 99283

== ENCOUNTER → 2021-01-02 08:54 | Outpatient (BNVA) | payer OTHER, SELFPAY | PROVIDERS: PCP Nurse Practitioner Family; Visit Provider Nurse Practitioner Psychiatric/Mental Health | DX: Z03.89 Encounter for observation for other suspected diseases and conditions ruled out (principal) | CPT/HCPCS: 80061; 83036 ==

== ENCOUNTER 2021-01-26 13:37 | Emergency (ER) | payer SELFPAY ==
[2021-01-26 14:36] VITALS: BP 143/94; PULSE 76; RESP 18; TEMP 36.8; O2SAT 97; BMI 28.0
--- NOTE | 2021-01-26 15:50 | W.ED.DIZZY ---
HPI - Dizziness General: Chief Complaint: Dizziness Stated Complaint: DIZZY (3 DAYS) Time Seen by Provider: 01/26/21 15:30 Source: patient Mode of arrival: ambulatory Limitations: no limitations History of Present Illness: HPI Narrative: Patient is a 35-year-old male who presents to the emergency department with vertigo. He states that for the last 3 days he has had a sensation of the room spinning. He was worse 3 days ago but has gotten gradually better in the last couple of days. He denies any nausea or vomiting. He denies any head trauma. He has no prior history of similar. He denies any chest pain or shortness of breath. He would like to be evaluated for these. MD elicited complaint: vertigo Onset (ago): day(s) (3) Timing: sudden onset Severity: moderate Description: room spinning History of similar symptoms: No Exacerbating factors: change in body position Relieving factors: nothing Associated symptoms: Denies abnormal vaginal bleeding, change in hearing, chest pain, chills, cough, diaphoresis, ear discharge, ear pressure, fevers/chills, headache(s), malaise, nausea, nasal congestion, palpitations, rash, short of breath, syncope, tinnitus, vomiting or weakness Associated neuro symptoms: Deny confusion, difficulty speaking, dysphagia, diplopia, extremity weakness, facial numbness, facial weakness, gait changes, numbness in extremities or visual changes Review of Systems General: Reports: 10 or more systems reviewed and unremarkable except in HPI and below Const: Denies: chills, malaise or diaphoresis ENMT: Denies: ear discharge, change in hearing, tinnitus or nasal congestion Card: Denies: chest pain, palpitations or syncope GI: Denies: nausea, vomiting or dysphagia Neuro: Denies: headache(s), numbness in extremities or confusion PFS ED PFSH: Medical History (Updated 01/26/21 @ 16:00 by Vika Evans MD, [facility] [place], [place]) AV heart block CHF (congestive heart failure) Congenital heart disease Fatigue GERD (gastroesophageal reflux disease) HTN (hypertension) Hx of cardiac pacemaker Hx of ventricular septal defect Major depressive disorder, recurrent, moderate Seizure SVT (supraventricular tachycardia) VSD (ventricular septal defect) Surgical History History of cardiac radiofrequency ablation (RFA) S/P appendectomy S/P cardiac pacemaker procedure S/P knee surgery S/P knee surgery Left S/P rotator cuff repair Left 08/26/2014 S/P tonsillectomy S/P vasectomy Family History Father Diabetes Other Cancer Heart disease Hypertension Stroke Social History (Updated 10/03/20 @ 10:03 by Mariel Proctor LPN) Smoking and tobacco status: former smoker Quit status (tobacco): has quit using tobacco Year quit tobacco: 12/25/2017 Former quit date comment: 1 PPD for 10 years Second hand smoke exposure: Yes Current gender identity: Male Physical Exam Const: COMMON NORMALS: no acute distress, average body habitus, patient oriented x3, no limitations, healthy appearing, alert and well nourished HENMT: COMMON NORMALS: normocephalic, atraumatic and moist oral mucous membranes HEAD & SCALP: normocephalic and atraumatic Eye: COMMON NORMALS: Equal, round and reactive pupils present, EOMs intact bilaterally, conjunctivae normal and no scleral icterus CONJUNCTIVA: Yes conjunctivae normal PUPIL: Yes Equal, round and reactive pupils present Neck/C-Spine: COMMON NORMALS: no meningeal signs and no JVD Resp: COMMON NORMALS: normal respiratory effort, No retractions, No use of accessory muscles, clear to auscultation bilaterally and percussion normal AUSCULTATION: clear to auscultation bilaterally PERCUSSION: percussion normal Cardio: COMMON NORMALS: no JVD, regular rate, regular rhythm, S1 normal heart sound present, S2 normal heart sound present, No gallops present (Cardio), No clicks present (Cardio), No murmurs present (Cardio), No rub (Cardio) and Peripheral pulses 2+ throughout RATE: regular rate RHYTHM: regular rhythm HEART SOUNDS: S1 normal heart sound present and S2 normal heart sound present PERIPHERAL PULSES: Peripheral pulses 2+ throughout GI: COMMON NORMALS: Normal to inspection, nondistended, normoactive bowel sounds present, Soft to palpation, non-tender, No hepatosplenomegaly present, no masses and no bruits PALPATION: Yes Soft to palpation and Yes No hepatosplenomegaly present Extremity: COMMON NORMALS: normal to inspection, full ROM, capillary refill normal, no calf tenderness and no pedal edema Neuro: COMMON NORMALS: patient oriented x3 SENSORIUM/ORIENTATION: Yes alert MENINGEAL SIGNS: Yes no meningeal signs Skin: COMMON NORMALS: no rashes or lesions noted, no wounds, turgor normal, no jaundice, no petechiae and no mottling GENERAL SKIN EXAM: no rashes or lesions noted and turgor normal Course Vital Signs: Vital signs: Vital Signs Temperature 98.2 F 01/26/21 14:36 Pulse Rate 70 01/26/21 16:03 Respiratory Rate 16 01/26/21 16:03 Blood Pressure 130/87 01/26/21 16:03 Pulse Oximetry 98 01/26/21 16:03 MDM - Dizziness MDM Narrative: Medical decision making narrative: 35-year-old male who presents to the emergency department with clinical features consistent with BPPV. Evaluation does not drop any red flags. No indication for further work-up. He was given a prescription for meclizine and was also given a printout of Beny maneuvers to help with the BPPV. He was offered to be referred to physical therapy for them to perform the maneuvers but he declined and was comfortable doing them at home. He will follow-up with his primary care provider. Discharge Plan Discharge Patient Disposition: Home Clinical Impression: Benign paroxysmal positional vertigo Qualifiers: Laterality: unspecified laterality Qualified Code(s): H81.10 - Benign paroxysmal vertigo, unspecified ear Condition: Stable Prescriptions: New meclizine 25 mg tablet 25 mg PO TID PRN (Reason: dizziness) Qty: 30 RF: 0 Continued ibuprofen [IBU-200] 200 mg tablet 200 mg PO Q6H PRN (Reason: Pain) RF: 0 esomeprazole magnesium [Nexium] 20 mg capsule,delayed release(DR/EC) 20 mg PO DAILY@0830 RF: 0 acetaminophen [Pain Relief Adult] 500 mg/15 mL Liquid 1,000 mg PO Q6H PRN (Reason: HEADACHES) RF: 0 albuterol sulfate 90 mcg/actuation HFA aerosol inhaler 2 inh INHALATION Q4H PRN (Reason: shortness of breath or wheezing) Qty: 6.7 RF: 0 Prozac 40 mg capsule 40 mg PO DAILY@0830 RF: 0 quetiapine 50 mg tablet 50 mg PO BEDTIME RF: 0 Discharge Orders: Discharge ED (Routine); Ordered 01/26/21 Ordered By: Vika Evans Referrals: Veronica Schwartz FNP [Primary Care Provider] - 1-3 days Discharge Diet: Usual diet Discharge Activity: Resume usual activity Patient Instructions: Benign Paroxysmal Positional Vertigo (ED) Activity Restrictions/Additional Instructions: Return for any new or worsening symptoms. Follow up with your primary care provider within 3 days. Take the medication as needed for vertigo, and perform the printed exercises. Coding Level of Care Code ED Multimedia Manager for Chg Fwd Exam Comprehensive
[2021-01-26] MEDS: meclizine 25 mg tablet PO (16:02)
[2021-01-26 16:03] VITALS: BP 130/87; PULSE 70; RESP 16; O2SAT 98
== END 2021-01-26 16:19 | disposition home or self-care (01) ==
PROVIDERS: Emergency Provider Family Medicine; PCP Nurse Practitioner Family
DX: H81.10 Benign paroxysmal vertigo, unspecified ear (principal); I11.0 Hypertensive heart disease with heart failure; I50.9 Heart failure, unspecified; Z95.0 Presence of cardiac pacemaker; Z87.891 Personal history of nicotine dependence
CPT/HCPCS: 99283; J8597

== ENCOUNTER → 2021-02-02 09:37 | Outpatient (BNVA) | payer OTHER, SELFPAY | PROVIDERS: PCP Nurse Practitioner Family; Visit Provider Nurse Practitioner Psychiatric/Mental Health | DX: Z03.89 Encounter for observation for other suspected diseases and conditions ruled out (principal); F33.1 Major depressive disorder, recurrent, moderate; F41.9 Anxiety disorder, unspecified; F43.12 Post-traumatic stress disorder, chronic; F60.9 Personality disorder, unspecified | CPT/HCPCS: 80053; 81000; 84439; 84443; 84481 ==

== ENCOUNTER → 2021-03-07 08:18 | Outpatient (BNVA) | payer OTHER, SELFPAY | PROVIDERS: PCP Nurse Practitioner Family; Visit Provider Nurse Practitioner Psychiatric/Mental Health | DX: Z51.81 Encounter for therapeutic drug level monitoring (principal) | CPT/HCPCS: 80178 ==

== ENCOUNTER 2021-04-06 19:31 | Emergency (ER) | payer SELFPAY ==
[2021-04-06 19:34] VITALS: BP 159/96; PULSE 103; RESP 18; TEMP 36.6; O2SAT 100; BMI 28.3
--- NOTE | 2021-04-06 19:57 | XRR_ITS ---
PROCEDURE INFORMATION: Exam: XR Chest Exam date and time: 04/06/2021 7:57 PM Age: 35 years old Clinical indication: Chest wall pain; Prior surgery; Surgery type: Pacer. ; Patient HX: Discomfort around pacemaker. Patient believes something wrong with it. ; Additional info: Cp TECHNIQUE: Imaging protocol: XR of the chest. Views: 2 views. COMPARISON: CR XR chest 1V portable [id number] 05/15/2020 9:43 PM FINDINGS: Tubes, catheters and devices: A pacemaker device is present, and its leads are in appropriate position. Lungs: No focal infiltrate is identified in the lungs. Pleural spaces: Unremarkable. No pleural effusion. No pneumothorax. Heart/Mediastinum: Heart is within normal limits of size. Bones/joints: Sternotomy wires and mediastinal surgical clips are present, consistent with previous coronary arterial bypass grafting. XR/XR chest 2V* [id number] IMPRESSION: No acute infiltrate.
--- NOTE | 2021-04-06 20:08 | ED_ITS ---
HPI - General Adult General: Chief complaint: General Medical Stated complaint: Pace Maker is shocking Hi, Time Seen by Provider: 04/06/21 19:39 Source: patient and family Mode of arrival: ambulatory Limitations: no limitations History of Present Illness: HPI narrative: This is a 35-year-old male with a history of congenital heart disease and supraventricular tachycardia and has a pacemaker implanted. This evening he states that about an hour ago he felt some itching over the pacemaker site and when he was scratching it he felt a little tingling like the small stroke again from a 9 V battery. Because he has third- degree heart block he is worried that may be everything is not completely okay with his pacemaker and he wants it checked out. He has no complaints otherwise, he feels fine, denies any headache, chest pain, nausea, dizziness, vomiting. No fever, MD complaint: pacemaker issues Onset (ago): hour(s) (1) Associated symptoms: Reports no associated symptoms; Deny chest pain, confusion, cough, diaphoresis, decreased appetite, dyspnea, fevers/chills, headache(s), malaise, nausea, rash, palpitations, seizures, short of breath, syncope, vomiting or weakness Treatments prior to arrival: none Review of Systems General: Reports: 10 or more systems reviewed and unremarkable except in HPI and below Const: Denies: malaise or diaphoresis Card: Denies: chest pain, palpitations or syncope Resp: Denies: dyspnea GI: Denies: nausea or vomiting Skin/Breast: Denies: rash Neuro: Denies: headache(s) or confusion PFS ED PFSH: Medical History (Reviewed 04/06/21 @ 20:12 by Vika Evans MD, [facility] [place] AV heart block CHF (congestive heart failure) Congenital heart disease Fatigue GERD (gastroesophageal reflux disease) HTN (hypertension) Hx of cardiac pacemaker Hx of ventricular septal defect Major depressive disorder, recurrent, moderate Seizure SVT (supraventricular tachycardia) VSD (ventricular septal defect) Surgical History (Reviewed 04/06/21 @ 20:12 by Vika Evans MD, [facility] [place] History of cardiac radiofrequency ablation (RFA) S/P appendectomy S/P cardiac pacemaker procedure S/P knee surgery S/P knee surgery Left S/P rotator cuff repair Left 08/26/2014 S/P tonsillectomy S/P vasectomy Family History (Reviewed 04/06/21 @ 20:12 by Vika Evans MD, [facility] [place] Father Diabetes Other Cancer Heart disease Hypertension Stroke Social History (Reviewed 04/06/21 @ 20:12 by Vika Evans MD, [facility] [place] Smoking and tobacco status: former smoker Quit status (tobacco): has quit using tobacco Year quit tobacco: 12/25/2017 Former quit date comment: 1 PPD for 10 years Second hand smoke exposure: Yes Current gender identity: Male Physical Exam Const: COMMON NORMALS: no acute distress, average body habitus, patient oriented x3, no limitations, healthy appearing, alert and well nourished HENMT: COMMON NORMALS: normocephalic, atraumatic and moist oral mucous membranes HEAD & SCALP: normocephalic and atraumatic Neck/C-Spine: COMMON NORMALS: no meningeal signs and no JVD Chest: COMMONS NORMALS: normal inspection of the chest and normal palpation of entire chest wall Resp: COMMON NORMALS: normal respiratory effort, No retractions, No use of accessory muscles, clear to auscultation bilaterally and percussion normal AUSCULTATION: clear to auscultation bilaterally PERCUSSION: percussion normal Cardio: COMMON NORMALS: no JVD, regular rate, regular rhythm, S1 normal heart sound present, S2 normal heart sound present, No gallops present (Cardio), No clicks present (Cardio), No murmurs present (Cardio), No rub (Cardio) and Peripheral pulses 2+ throughout RATE: regular rate RHYTHM: regular rhythm HEART SOUNDS: S1 normal heart sound present and S2 normal heart sound present PERIPHERAL PULSES: Peripheral pulses 2+ throughout GI: COMMON NORMALS: Normal to inspection, nondistended, normoactive bowel sounds present, Soft to palpation, non-tender, No hepatosplenomegaly present, no masses and no bruits PALPATION: Yes Soft to palpation and Yes No hepatosplenomegaly present Extremity: COMMON NORMALS: normal to inspection, full ROM, capillary refill normal, no calf tenderness and no pedal edema Neuro: COMMON NORMALS: patient oriented x3 SENSORIUM/ORIENTATION: Yes alert MENINGEAL SIGNS: Yes no meningeal signs Course Reevaluation(s): Reevaluation #1: Discussed his imaging findings on the pacemaker interrogation report with the patient. Pacemaker appears to be functioning correctly with no obvious signs of lead failure. Since he is asymptomatic and no obvious issues with his pacemaker we will discharge him home with no new orders. He is advised to call his crotch piece baster in the morning. He voiced understanding and is in agreement with the plan. Time: 21:34 Vital Signs: Vital signs: Vital Signs Temperature 97.9 F 04/06/21 19:34 Pulse Rate 77 04/06/21 21:50 Respiratory Rate 20 H 04/06/21 21:50 Blood Pressure 133/69 04/06/21 21:50 Pulse Oximetry 97 04/06/21 21:50 MDM - General Adult MDM Narrative: Medical decision making narrative: 35-year-old male who presents to the emergency department with sensation of low-grade electric shock at the site of his pacemaker. He is otherwise asymptomatic with no chest pain, dizziness, presyncope or syncope. Pacemaker interrogation showed the pacemaker is performing correctly and no signs of lead failure. X-ray was unremarkable. Patient is discharged home to follow-up with his crotch piece baster. Medical Records: Attestation: I reviewed the patient's medical records. Imaging Data^: CXR: Attestation: I personally reviewed and interpreted this imaging study as follows: Radiologist's impression: [address] [id number] ReportSigned Patient: Ariel Rob AUnit #: [id number]: 1985Acct#:[id number]/Sex: 35 / MADM Date: 04/06/21Loc: [facility]/Bed:Attending Dr: Ordering Provider/Ordering MD: Vika Evans MD, [facility] [place] Date of Service: 04/06/21 Procedure(s): XR chest 2V* [id number] Accession Number(s): [id number] Report Number: [id number] PROCEDURE INFORMATION: Exam: XR Chest Exam date and time: 04/06/2021 7:57 PM Age: 35 years old Clinical indication: Chest wall pain; Prior surgery; Surgery type: Pacer. ; Patient HX: Discomfort around pacemaker. Patient believes something wrong with it. ; Additional info: Cp TECHNIQUE: Imaging protocol: XR of the chest. Views: 2 views. COMPARISON: CR XR chest 1V portable [id number] 05/15/2020 9:43 PM FINDINGS: Tubes, catheters and devices: A pacemaker device is present, and its leads are in appropriate position. Lungs: No focal infiltrate is identified in the lungs. Pleural spaces: Unremarkable. No pleural effusion. No pneumothorax. Heart/Mediastinum: Heart is within normal limits of size. Bones/joints: Sternotomy wires and mediastinal surgical clips are present, consistent with previous coronary arterial bypass grafting. XR/XR chest 2V* [id number] IMPRESSION: No acute infiltrate. Dictated By:Elizabeth Pendleton By:Elizabeth Pendleton Date/Time:04/06/212117DD/ 15 EKG Data^: EKG 1: Attestation: I personally reviewed and interpreted this EKG as follows: EKG interpretation date: 04/06/21 EKG interpretation time: 19:40 Prior EKG tracings: available for review Interpretation: Electronic ventricular pacemaker. Heart rate [address] changes. Computer generated interpretation: Chest X-Ray 04/06/21 19:57 IMPRESSION: No acute infiltrate. Discharge Plan Discharge Patient Disposition: Home Clinical Impression: Cardiac pacemaker in situ, Worried well Condition: Stable Prescriptions: Continued ibuprofen [IBU-200] 200 mg tablet 200 mg PO Q6H PRN (Reason: Pain) RF: 0 esomeprazole magnesium [Nexium] 20 mg capsule,delayed release(DR/EC) 20 mg PO DAILY@0830 RF: 0 lithium carbonate 300 mg capsule 300 mg PO .q hs Qty: 30 RF: 1 bupropion HCl 75 mg tablet 75 mg PO BID Qty: 60 RF: 1 quetiapine [Seroquel] 100 mg tablet 100 mg PO .hs Qty: 30 RF: 1 lithium carbonate 600 mg capsule 600 mg PO .qhs Qty: 30 RF: 1 acetaminophen [Pain Relief Adult] 500 mg/15 mL Liquid 1,000 mg PO Q6H PRN (Reason: HEADACHES) RF: 0 albuterol sulfate 90 mcg/actuation HFA aerosol inhaler 2 inh INHALATION Q4H PRN (Reason: shortness of breath or wheezing) Qty: 6.7 RF: 0 meclizine 25 mg tablet 25 mg PO TID PRN (Reason: dizziness) Qty: 30 RF: 0 Discharge Orders: Discharge ED (Routine); Ordered 04/06/21 Ordered By: Vika Evans Referrals: Veronica Schwartz FNP [Primary Care Provider] - 1-3 days Discharge Diet: Advance as tolerated Discharge Activity: Increase activity as tolerated Patient Instructions: Pacemaker (GEN) Activity Restrictions/Additional Instructions: Return for any new or worsening symptoms. Follow-up with your primary care provider within 3 days. Follow-up with your crotch piece baster as soon as possible. Call the crotch piece baster office and explain what you have been experiencing. Your pacemaker interrogation does not show any lead failure or any other complications with the pacemaker. It is functioning as desired. Coding Level of Care Code ED Senior Network Administrator for Janiag Fwd Exam Comprehensive
[2021-04-06 21:50] VITALS: BP 133/69; PULSE 77; RESP 20; O2SAT 97
--- NOTE | 2021-04-06 22:07 | ECG_ITS ---
[facility] ED Test Date: 2021-04-06 Pat Name: Ariel Rob Department: Room: Gender: Male Cook Morning: : 1985 Requested By: Vika Evans I Order Number: [id number] Ezequiel MD: Lucrecia Tohmas M.D. Measurements Intervals [place] Rate: 77 P: 38 AR: 194 QRS: -86 QRSD: 187 T: 81 QT: 440 QTc: 501 Interpretive Statements A sense V paced rhythm Compared to ECG 03/16/2020 21:57:13 Atrial-paced complex(es) or rhythm no longer present Electronically Signed On 04-08-2021 18:33:15 CDT by Lucrecia Thomas M.D. [id number]
== END 2021-04-06 21:51 | disposition home or self-care (01) ==
PROVIDERS: Emergency Provider Family Medicine; PCP Nurse Practitioner Family
DX: Z45.018 Encounter for adjustment and management of other part of cardiac pacemaker (principal); I11.0 Hypertensive heart disease with heart failure; I50.9 Heart failure, unspecified; I47.1 Supraventricular tachycardia; I44.2 Atrioventricular block, complete; Q21.0 Ventricular septal defect; Z87.891 Personal history of nicotine dependence
CPT/HCPCS: 71046; 93005; 99282

== ENCOUNTER → 2021-04-08 15:24 | Outpatient (BNVA) | payer OTHER, SELFPAY | PROVIDERS: PCP Nurse Practitioner Family; Visit Provider Nurse Practitioner Family | DX: Z20.822 Contact with and (suspected) exposure to COVID-19 (principal) | CPT/HCPCS: 87635 ==

== ENCOUNTER 2021-04-11 07:19 | Emergency (ER) | payer SELFPAY ==
[2021-04-11 07:28] VITALS: BP 159/92; PULSE 102; RESP 18; TEMP 37.7; O2SAT 96; BMI 28.5
--- NOTE | 2021-04-11 07:35 | XR_ITS ---
WS: [id number] Exam: XR chest 1V portable [id number] Date/Time of Exam: 04/11/2021 7:56 AM Reason For Exam: SOB Comparison 04/06/2021. The lungs are fully expanded and clear. Normal cardiomediastinal structures and bony elements. Signs of median sternotomy. A cardiac pacer superimposes the right chest. No pleural effusion. XR/XR chest 1V portable [id number] IMPRESSION: 1. No acute cardiopulmonary finding. No change.
--- NOTE | 2021-04-11 07:54 | ED_ITS ---
HPI - COVID General: Chief Complaint: COVID symptoms Stated Complaint: SOB, fever, weak, shaky, altered taste and smell Time Seen by Provider: 04/11/21 07:24 Source: patient Mode of arrival: ambulatory Limitations: no limitations Triage information: Has fever, cough or shortness of breath . Exposure to COVID + person last 14 days History of Present Illness: HPI Narrative: Patient is a 35-year-old male who presents to ED today with a complaint of fever of up to 101, body aches, loss of taste and smell, and a productive cough. Patient tells me he has had known positive COVID exposure. He was recently seen at an outlying clinic and tested for COVID which was negative. Here today because symptoms are still present. Patient has a pacemaker secondary to a 3rd degree heart block. History of congenital heart disease/VSD. MD complaint: reported COVID exposure Prior covid testing: yes, results known COVID 19 common symptoms: positive fever(s), productive cough, fatigue and body aches; negative dyspnea, headache(s), throat pain, nasal congestion, nausea, vomiting or diarrhea COVID 19 other sytmptoms: negative chest pain Severity: mild Treatment prior to arrival: none COVID Results: SARS-CoV-2 Antigen (Rapid) Positive (Negative) H 04/11/21 09:20 04/11/21 SARS-CoV-2 RNA (RT-PCR) Not detected (NOT DETECTED) 04/08/21 15:24 04/08/21 Review of Systems Const: Reports: fever(s), body aches and fatigue; Denies: night sweats or diaphoresis Eyes: Denies: change in vision, blurry vision, photophobia, floaters or seeing flashes ENMT: Reports: other (loss of taste/smell); Denies: throat pain, odynophagia, ear or mastoid pain, ear discharge, nasal discharge, nasal congestion or sinus pain Card: Denies: chest pain, palpitations, irregular heart rhythm, edema, swelling of feet/ankles, lightheadedness, syncope or pre-syncope Resp: Reports: productive cough and chest congestion; Denies: dyspnea, wheezing, stridor or hemoptysis GI: Denies: abdominal pain, nausea, vomiting or diarrhea Musc: Denies: neck pain or back pain Skin/Breast: Denies: rash Neuro: Denies: headache(s), numbness in extremities, weakness in extremities or sensory changes PFSH ED PFSH: Medical History AV heart block CHF (congestive heart failure) Congenital heart disease Fatigue GERD (gastroesophageal reflux disease) HTN (hypertension) Hx of cardiac pacemaker Hx of ventricular septal defect Major depressive disorder, recurrent, moderate Seizure SVT (supraventricular tachycardia) VSD (ventricular septal defect) Surgical History History of cardiac radiofrequency ablation (RFA) S/P appendectomy S/P cardiac pacemaker procedure S/P knee surgery S/P knee surgery Left S/P rotator cuff repair Left 08/26/2014 S/P tonsillectomy S/P vasectomy Family History Father Diabetes Other Cancer Heart disease Hypertension Stroke Social History (Updated 04/08/21 @ 15:18 by Jen Amaya NP) Smoking and tobacco status: former smoker Quit status (tobacco): has quit using tobacco Year quit tobacco: 12/25/2017 Former quit date comment: 1 PPD for 10 years Second hand smoke exposure: Yes Alcohol intake: never Current gender identity: Male Physical Exam Const: COMMON NORMALS: no acute distress, average body habitus, patient oriented x3, no limitations, healthy appearing, alert and well nourished GENERAL APPEARANCE: cooperative ORIENTATION/CONSCIOUSNESS: Yes awake, Yes oriented to person, Yes oriented to place and Yes oriented to time HENMT: COMMON NORMALS: normocephalic and atraumatic HEAD & SCALP: normocephalic and atraumatic Resp: COMMON NORMALS: normal respiratory effort and clear to auscultation bilaterally AUSCULTATION: clear to auscultation bilaterally Cardio: COMMON NORMALS: regular rate and regular rhythm RATE: regular rate RHYTHM: regular rhythm Extremity: COMMON NORMALS: normal to inspection Neuro: COMMON NORMALS: patient oriented x3 SENSORIUM/ORIENTATION: Yes alert, Yes oriented to person, Yes oriented to place and Yes oriented to time Skin: COMMON NORMALS: no rashes or lesions noted GENERAL SKIN EXAM: no rashes or lesions noted Course Vital Signs: Vital signs: Vital Signs Temperature 99.9 F H 07/28/21 07:28 Pulse Rate 102 H 04/11/21 07:28 Respiratory Rate 18 04/11/21 07:28 Blood Pressure 159/92 04/11/21 07:28 Pulse Oximetry 96 04/11/21 09:25 MDM - COVID MDM Narrative: Medical decision making narrative: Patient is COVID positive. He appears in no acute distress. He is very mildly tachycardic with low-grade fevers of 99.9. Satting normal on room air. CXR is normal. He does not meet criteria for BAM infusion. Will discharge home with oral dexamethasone. Return to ED precautions given. Lab Data: Labs: Lab Results 04/11/21 04/11/21 04/11/21 Range/Units 09:20 09:20 09:20 WBC (4.0-10.0) 10^3/ uL RBC (4.1-5.3) 10^6/u L Hgb (11.7-16.6) g/dL Hct (42.0-52.0) % MCV (80-94) fL MCH (28.0-34.0) pg MCHC (30.0-36.0) g/dL RDW (12.1-15.1) % Plt Count (130-400) 10^3/c mm MPV (7.4-10.4) fL Neut % (Auto) % Lymph % (Auto) % Bollinger % (Auto) % Eos % (Auto) % Baso % (Auto) % Neut # (Auto) (1.8-7.7) 10^3/u L Lymph # (Auto) (0.8-4.8) 10^3/u L Bollinger # (Auto) (0.2-0.9) 10^3/u L Eos # (Auto) (0.0-0.8) 10^3/u L Baso # (Auto) (0.0-0.1) 10^3/u L Nucleated RBC % (a uto) % Nucleated RBCs # /100WBC Sodium 140 (136-145) mmol/L Potassium 3.8 (3.5-5.1) mmol/L Chloride 106 (98-107) mmol/L Carbon Dioxide 26 (22-29) mmol/L Anion Gap 11.8 (5-19) BUN 9 (6-20) mg/dL Creatinine 1.0 (0.7-1.2) mg/dL GFR Calculation 86.1 L (90-130) mL/min Glucose 94 (65-115) mg/dL Calculated Osmolal ity 288 (285-295) mOsm/k g Calcium 9.0 (8.5-10.5) mg/dL Total Bilirubin 0.3 (0.15-1.2) mg/dL AST 35 (0-40) U/L ALT 27 (0-41) U/L Alkaline Phosphata se 85 (40-130) IU/L Total Protein 6.9 (6.6-8.7) g/dL Albumin 4.2 (3.5-5.2) g/dL Globulin 2.7 (1.3-4.6) g/dL Influenza Type A A g Negative (Negative) Influenza Type B A g Negative (Negative) SARS-CoV-2 Ag (Rap id) Positive H (Negative) 04/11/21 Range/Units 09:38 WBC 4.9 (4.0-10.0) 10^3/ uL RBC 4.41 (4.1-5.3) 10^6/u L Hgb 13.3 (11.7-16.6) g/dL Hct 39.7 L (42.0-52.0) % MCV 90.0 (80-94) fL MCH 30.2 (28.0-34.0) pg MCHC 33.5 (30.0-36.0) g/dL RDW 13.1 (12.1-15.1) % Plt Count 153 (130-400) 10^3/c mm MPV 10.2 (7.4-10.4) fL Neut % (Auto) 71.5 % Lymph % (Auto) 11.2 % Bollinger % (Auto) 14.9 % Eos % (Auto) 1.8 % Baso % (Auto) 0.4 % Neut # (Auto) 3.51 (1.8-7.7) 10^3/u L Lymph # (Auto) 0.6 L (0.8-4.8) 10^3/u L Bollinger # (Auto) 0.7 (0.2-0.9) 10^3/u L Eos # (Auto) 0.1 (0.0-0.8) 10^3/u L Baso # (Auto) 0.0 (0.0-0.1) 10^3/u L Nucleated RBC % (a uto) 0 % Nucleated RBCs # 0.0 /100WBC Sodium (136-145) mmol/L Potassium (3.5-5.1) mmol/L Chloride (98-107) mmol/L Carbon Dioxide (22-29) mmol/L Anion Gap (5-19) BUN (6-20) mg/dL Creatinine (0.7-1.2) mg/dL GFR Calculation (90-130) mL/min Glucose (65-115) mg/dL Calculated Osmolal ity (285-295) mOsm/k g Calcium (8.5-10.5) mg/dL Total Bilirubin (0.15-1.2) mg/dL AST (0-40) U/L ALT (0-41) U/L Alkaline Phosphata se (40-130) IU/L Total Protein (6.6-8.7) g/dL Albumin (3.5-5.2) g/dL Globulin (1.3-4.6) g/dL Influenza Type A A g (Negative) Influenza Type B A g (Negative) SARS-CoV-2 Ag (Rap id) (Negative) Imaging Data: CXR: Radiologist's impression: [address] [id number] ReportSigned Patient: Ariel Rob AUnit #: [id number]: [id number]#:[id number]/Sex: 35 / MADM Date: 04/11/21Loc: ERRoom/Bed:Attending Dr: Ordering Provider/Ordering MD: Stefani Canales Date of Service: 04/11/21 Procedure(s): XR chest 1V portable [id number] Accession Number(s): [id number] Report Number: [id number] WS: [id number] Exam: XR chest 1V portable [id number] Date/Time of Exam: 04/11/2021 7:56 AM Reason For Exam: SOB Comparison 04/06/2021. The lungs are fully expanded and clear. Normal cardiomediastinal structures and bony elements. Signs of median sternotomy. A cardiac pacer superimposes the right chest. No pleural effusion. XR/XR chest 1V portable [id number] IMPRESSION: 1. No acute cardiopulmonary finding. No change. Dictated By:Aaron Contreras, DOSigned By:Aaron Contreras, DOSigned Date/Time:04/11/21815DD/ 5 COVID Results: SARS-CoV-2 Antigen (Rapid) Positive (Negative) H 04/11/21 09:20 04/11/21 SARS-CoV-2 RNA (RT-PCR) Not detected (NOT DETECTED) 04/08/21 15:24 04/08/21 Monoclonal Antibody Treatments Plan for treatment Does not meet criteria (DO NOT GIVE) Discharge Plan Discharge Patient Disposition: Home Clinical Impression: COVID-19 Condition: Stable Prescriptions: New dexamethasone 6 mg tablet 6 mg PO DAILY 6 Days Qty: 6 RF: 0 Continued ibuprofen [IBU-200] 200 mg tablet 200 mg PO Q6H PRN (Reason: Pain) RF: 0 esomeprazole magnesium [Nexium] 20 mg capsule,delayed release(DR/EC) 20 mg PO DAILY@0830 RF: 0 lithium carbonate 300 mg capsule 300 mg PO .q hs Qty: 30 RF: 1 bupropion HCl 75 mg tablet 75 mg PO BID Qty: 60 RF: 1 quetiapine [Seroquel] 100 mg tablet 100 mg PO .hs Qty: 30 RF: 1 lithium carbonate 600 mg capsule 600 mg PO .qhs Qty: 30 RF: 1 acetaminophen [Pain Relief Adult] 500 mg/15 mL Liquid 1,000 mg PO Q6H PRN (Reason: HEADACHES) RF: 0 albuterol sulfate 90 mcg/actuation HFA aerosol inhaler 2 inh INHALATION Q4H PRN (Reason: shortness of breath or wheezing) Qty: 6.7 RF: 0 meclizine 25 mg tablet 25 mg PO TID PRN (Reason: dizziness) Qty: 30 RF: 0 Discharge Orders: Discharge ED (Routine); Ordered 04/11/21 Ordered By: Stefani Canales Referrals: Veronica Schwartz FIRE PREVENTION OFFICER [Primary Care Provider] - Coding Level of Care Code ED Wing Coverer for Chg Fwd Exam Detailed
[2021-04-11 09:25] VITALS: O2SAT 96
[2021-04-11 09:44] LABS: Basophils % 0.4 %; Eosinophils # 0.1 10^3/uL (0.0-0.8); Eosinophils % 1.8 %; Hematocrit 39.7 % (42.0-52.0); Hemoglobin 13.3 g/dL (11.7-16.6); Lymphocytes # 0.6 10^3/uL (0.8-4.8); Lymphocytes % 11.2 %; Mean Corpuscular HGB Conc 33.5 g/dL (30.0-36.0); Mean Corpuscular Hemoglobin 30.2 pg (28.0-34.0); Mean Platelet Volume 10.2 fL (7.4-10.4); Monocytes # 0.7 10^3/uL (0.2-0.9); Monocytes % 14.9 %; Neutrophils # 3.51 10^3/uL (1.8-7.7); Neutrophils % 71.5 %; Nucleated Red Blood Cells % 0 %; Platelet Count 153 10^3/cmm (130-400); Red Blood Count 4.41 10^6/uL (4.1-5.3); Red Cell Distribution Width 13.1 % (12.1-15.1); White Blood Count 4.9 10^3/uL (4.0-10.0)
[2021-04-11 09:54] LABS: Influenza A by IFA Negative (Negative); Influenza B by IFA Negative (Negative); SARS Covid-2 Antigen Positive (Negative)
[2021-04-11 10:03] VITALS: PULSE 98; RESP 18; O2SAT 97
[2021-04-11 10:04] LABS: Alanine Aminotransferase 27 U/L (0-41); Albumin Level 4.2 g/dL (3.5-5.2); Alkaline Phosphatase 85 IU/L (40-130); Anion Gap 11.8 (5-19); Aspartate Amino Transferase 35 U/L (0-40); Blood Urea Nitrogen 9 mg/dL (6-20); Carbon Dioxide 26 mmol/L (22-29); Chloride 106 mmol/L (98-107); Globulin 2.7 g/dL (1.3-4.6); Glomerular Filtration Rate 86.1 mL/min (90-130); Glucose 94 mg/dL (65-115); Osmolality Calculated 288 mOsm/kg (285-295); Potassium 3.8 mmol/L (3.5-5.1); Sodium 140 mmol/L (136-145); Total Bilirubin 0.3 mg/dL (0.15-1.2); Total Protein 6.9 g/dL (6.6-8.7)
== END 2021-04-11 10:37 | disposition home or self-care (01) ==
PROVIDERS: Emergency Provider Physician Assistant; PCP Nurse Practitioner Family
DX: U07.1 COVID-19 (principal); I11.0 Hypertensive heart disease with heart failure; I50.9 Heart failure, unspecified; I44.2 Atrioventricular block, complete; Q21.0 Ventricular septal defect; Z95.0 Presence of cardiac pacemaker; Z87.891 Personal history of nicotine dependence
CPT/HCPCS: 36415; 71045; 80053; 85025; 87426; 87804; 99283

== ENCOUNTER 2021-04-18 23:00 | Emergency (ER) | payer SELFPAY ==
--- NOTE | 2021-04-18 23:06 | XRR_ITS ---
PROCEDURE INFORMATION: Exam: XR Chest Exam date and time: 04/18/2021 11:06 PM Age: 35 years old Clinical indication: Cough and shortness of breath; Prior surgery; Surgery type: Pacemaker; Additional info: SOB, cough, covid+ TECHNIQUE: Imaging protocol: XR of the chest. Views: 1 view. COMPARISON: CR XR chest 1V portable [id number] 04/11/2021 7:59 AM FINDINGS: Tubes, catheters and devices: Stable right pacemaker. Lungs: Hyperaerated lungs consistent with deep inspiratory effort vs reactive airway disease. Pleural spaces: Unremarkable. No pleural effusion. No pneumothorax. Heart/Mediastinum: Unremarkable. No cardiomegaly. Bones/joints: Stable sternotomy. XR/XR chest 1V portable [id number] IMPRESSION: 1. Stable right pacemaker. 2. Stable sternotomy. 3. Hyperaerated lungs consistent with deep inspiratory effort vs reactive airway disease.
[2021-04-18 23:14] VITALS: BP 149/90; PULSE 80; RESP 20; TEMP 37; O2SAT 98; BMI 28.5
[2021-04-18 23:17] VITALS: O2SAT 98
--- NOTE | 2021-04-18 23:59 | ED_ITS ---
HPI - COVID General: Chief Complaint: COVID symptoms Stated Complaint: sob, covid positive Time Seen by Provider: 04/18/21 23:40 Source: patient Mode of arrival: ambulatory Limitations: no limitations Triage information: Has fever, cough or shortness of breath . Exposure to COVID + person last 14 days History of Present Illness: HPI Narrative: 35-year-old male who tested positive for Covid the states been having symptoms for 10 days. He states today started having a slight cough and some body aches low-grade fevers. Some mild dyspnea as well. Here he is in no distress and his pulse ox is normal. Denies any vomiting diarrhea. Denies any worsening improving factors. COVID 19 common symptoms: positive non-productive cough, dyspnea and body aches; negative headache(s), throat pain, nausea, vomiting or diarrhea COVID 19 other sytmptoms: negative chest pain COVID Results: SARS-CoV-2 Antigen (Rapid) Positive (Negative) H 04/11/21 09:20 04/11/21 SARS-CoV-2 RNA (RT-PCR) Not detected (NOT DETECTED) 04/08/21 15:24 04/08/21 Review of Systems Const: Reports: body aches Eyes: Denies: blurry vision or eye discomfort ENMT: Denies: throat pain or dental pain Card: Denies: chest pain Resp: Reports: dyspnea and non-productive cough GI: Denies: abdominal pain, nausea, vomiting or diarrhea : Denies: dysuria Musc: Denies: neck pain or back pain Skin/Breast: Denies: rash Neuro: Denies: headache(s) Psych: Denies: depression Yan/Lymph: Denies: easy bruising All/Imm: Denies: urticaria PFSH ED PFSH: Medical History AV heart block CHF (congestive heart failure) Congenital heart disease Fatigue GERD (gastroesophageal reflux disease) HTN (hypertension) Hx of cardiac pacemaker Hx of ventricular septal defect Major depressive disorder, recurrent, moderate Seizure SVT (supraventricular tachycardia) VSD (ventricular septal defect) Surgical History History of cardiac radiofrequency ablation (RFA) S/P appendectomy S/P cardiac pacemaker procedure S/P knee surgery S/P knee surgery Left S/P rotator cuff repair Left 08/26/2014 S/P tonsillectomy S/P vasectomy Family History Father Diabetes Other Cancer Heart disease Hypertension Stroke Social History Smoking and tobacco status: former smoker Quit status (tobacco): has quit using tobacco Year quit tobacco: 12/25/2017 Former quit date comment: 1 PPD for 10 years Second hand smoke exposure: Yes Alcohol intake: never Current gender identity: Male Physical Exam Const: COMMON NORMALS: no acute distress, patient oriented x3 and healthy appearing HENMT: COMMON NORMALS: normocephalic and atraumatic HEAD & SCALP: normocephalic and atraumatic Eye: COMMON NORMALS: Equal, round and reactive pupils present and EOMs intact bilaterally PUPIL: Yes Equal, round and reactive pupils present Neck/C-Spine: COMMON NORMALS: full ROM and supple Chest: COMMONS NORMALS: normal inspection of the chest and normal palpation of entire chest wall Resp: COMMON NORMALS: normal respiratory effort, No retractions, No use of accessory muscles and clear to auscultation bilaterally AUSCULTATION: clear to auscultation bilaterally Cardio: COMMON NORMALS: regular rate, regular rhythm and No murmurs present (Cardio) RATE: regular rate RHYTHM: regular rhythm GI: COMMON NORMALS: Normal to inspection, nondistended, normoactive bowel sounds present, Soft to palpation, non-tender and no masses PALPATION: Yes Soft to palpation Extremity: COMMON NORMALS: normal to inspection and full ROM Neuro: COMMON NORMALS: patient oriented x3, moves all extremities and no focal motor deficits Psych: COMMON NORMALS: mental status grossly normal, Normal thought process present and cooperative THOUGHT PROCESS: Normal thought process present Skin: COMMON NORMALS: no rashes or lesions noted and no wounds GENERAL SKIN EXAM: no rashes or lesions noted Course Vital Signs: Vital signs: Vital Signs Temperature 98.6 F 04/18/21 23:14 Pulse Rate 80 04/18/21 23:14 Respiratory Rate 20 H 04/18/21 23:14 Blood Pressure 149/90 04/18/21 23:14 Pulse Oximetry 98 04/18/21 23:17 MDM - COVID MDM Narrative: Medical decision making narrative: Covid slight cough. He is well-appearing here and in no distress pulse ox normal x-ray is normal. We will place him on Medrol Dosepak and albuterol. He is to follow-up PCP and return if worsening. Imaging Data: CXR: Attestation: I personally reviewed and interpreted this imaging study as follows: My impression: No acute abnormality COVID Results: SARS-CoV-2 Antigen (Rapid) Positive (Negative) H 04/11/21 09:20 04/11/21 SARS-CoV-2 RNA (RT-PCR) Not detected (NOT DETECTED) 04/08/21 15:24 04/08/21 Discharge Plan Discharge Patient Disposition: Home Clinical Impression: COVID-19 Condition: Stable Prescriptions: New albuterol sulfate 90 mcg/actuation HFA aerosol inhaler 2 inh INHALATION Q6H PRN (Reason: shortness of breath or wheezing) Qty: 8 RF: 0 Medrol (Alvarez) 4 mg tablets,dose pack See Rx Instructions .ROUTE .COMPLEX Qty: 21 RF: 0 No Action ibuprofen [IBU-200] 200 mg tablet 200 mg PO Q6H PRN (Reason: Pain) RF: 0 esomeprazole magnesium [Nexium] 20 mg capsule,delayed release(DR/EC) 20 mg PO DAILY@0830 RF: 0 lithium carbonate 300 mg capsule 300 mg PO .q hs Qty: 30 RF: 1 bupropion HCl 75 mg tablet 75 mg PO BID Qty: 60 RF: 1 quetiapine [Seroquel] 100 mg tablet 100 mg PO .hs Qty: 30 RF: 1 lithium carbonate 600 mg capsule 600 mg PO .qhs Qty: 30 RF: 1 acetaminophen [Pain Relief Adult] 500 mg/15 mL Liquid 1,000 mg PO Q6H PRN (Reason: HEADACHES) RF: 0 albuterol sulfate 90 mcg/actuation HFA aerosol inhaler 2 inh INHALATION Q4H PRN (Reason: shortness of breath or wheezing) Qty: 6.7 RF: 0 meclizine 25 mg tablet 25 mg PO TID PRN (Reason: dizziness) Qty: 30 RF: 0 Discharge Orders: Discharge ED (Routine); Ordered 04/19/21 Ordered By: Trace Peck Referrals: Veronica Schwartz FNP [Primary Care Provider] - 1-3 days Discharge Diet: Advance as tolerated Discharge Activity: Resume usual activity Patient Instructions: Viral Syndrome (ED) Coding Level of Care Code ED Assembling Motor Builder for Lizz Fwd Exam Comprehensive
[2021-04-19 00:08] VITALS: PULSE 80; RESP 18; O2SAT 99
[2021-04-19] MEDS: predniSONE 20 mg Tablet 40 MG PO (00:08)
== END 2021-04-19 00:09 | disposition home or self-care (01) ==
PROVIDERS: Emergency Provider Emergency Medicine; PCP Nurse Practitioner Family
DX: U07.1 COVID-19 (principal); I11.0 Hypertensive heart disease with heart failure; I50.9 Heart failure, unspecified; Z95.0 Presence of cardiac pacemaker; Z87.891 Personal history of nicotine dependence
CPT/HCPCS: 71045; 99283; J7512

== ENCOUNTER → 2021-05-18 15:16 | Outpatient (BNVA) | payer SELFPAY | PROVIDERS: PCP Nurse Practitioner Family; Visit Provider Dermatology | DX: F60.9 Personality disorder, unspecified (principal) | CPT/HCPCS: 80178 ==

== ENCOUNTER 2021-06-24 19:02 | Emergency (ER) | payer BC, MEDICAID, SELFPAY ==
[2021-06-24 19:25] VITALS: BP 148/91; PULSE 94; RESP 16; TEMP 36.9; O2SAT 99
--- NOTE | 2021-06-24 19:49 | ED_ITS ---
HPI - Animal Bite General: Chief Complaint: Animal Bite Stated Complaint: dog bite to R hand Time Seen by Provider: 06/24/21 19:24 History of Present Illness: HPI narrative: Patient is a 35-year-old male that comes to the ED with a dog bite to right hand. Dog bite occurred yesterday. Patient got a dog bite when he was protecting his daughter when dog attacked her. the dog was one of his family members dogs that is an outdoor dog and has not received his rabies vaccination. [employer] Inspector says the dog has started getting more aggressive over the past month. Patient is having pain in his right hand 2nd-5th digits where bite occurred. Patient says he is up-to-date on his tetanus. Associated symptoms: Deny chills, fever(s) or headache(s) Review of Systems Const: Denies: fever(s), chills or fatigue Eyes: Denies: change in vision or eye discomfort ENMT: Denies: throat pain, odynophagia, nasal discharge or nasal congestion Card: Denies: chest pain, palpitations, edema, swelling of feet/ankles, dyspnea on exertion or orthopnea Resp: Denies: dyspnea, productive cough or non-productive cough GI: Denies: abdominal pain, nausea, vomiting, diarrhea, constipation or hematochezia : Denies: flank pain, difficulty urinating, dysuria or hematuria Musc: Denies: neck pain, back pain or extremity swelling Skin/Breast: Reports: new lesions (Dog bite with puncture wounds on right hand digits 2 through 5.); Denies: rash Neuro: Denies: headache(s), numbness in extremities or weakness in extremities PFS ED PFSH: Medical History AV heart block CHF (congestive heart failure) Congenital heart disease Fatigue GERD (gastroesophageal reflux disease) HTN (hypertension) Hx of cardiac pacemaker Hx of ventricular septal defect Major depressive disorder, recurrent, moderate Psychiatric care Seizure SVT (supraventricular tachycardia) VSD (ventricular septal defect) Surgical History History of cardiac radiofrequency ablation (RFA) S/P appendectomy S/P cardiac pacemaker procedure S/P knee surgery S/P knee surgery Left S/P rotator cuff repair Left 08/26/2014 S/P tonsillectomy S/P vasectomy Family History Father Diabetes Other Cancer Heart disease Hypertension Stroke Social History Smoking and tobacco status: never smoked Quit status (tobacco): has quit using tobacco Year quit tobacco: 12/25/2017 Former quit date comment: 1 PPD for 10 years Second hand smoke exposure: Yes Alcohol intake: never Current gender identity: Male Physical Exam Const: COMMON NORMALS: no acute distress, patient oriented x3 and alert GENERAL APPEARANCE: cooperative and comfortable HENMT: COMMON NORMALS: normocephalic HEAD & SCALP: normocephalic MOUTH: Normal oral and palatal mucosa present THROAT: posterior oropharynx normal and uvula midline Neck/C-Spine: COMMON NORMALS: supple GENERAL: Yes normal visual inspection Resp: COMMON NORMALS: normal respiratory effort, No retractions, No use of accessory muscles and clear to auscultation bilaterally AUSCULTATION: clear to auscultation bilaterally Cardio: COMMON NORMALS: regular rate, regular rhythm, S1 normal heart sound present, S2 normal heart sound present, No gallops present (Cardio), No clicks present (Cardio), No murmurs present (Cardio) and Peripheral pulses 2+ throughout RATE: regular rate RHYTHM: regular rhythm HEART SOUNDS: S1 normal heart sound present and S2 normal heart sound present PERIPHERAL PULSES: Peripheral pulses 2+ throughout GI: COMMON NORMALS: Normal to inspection, nondistended, normoactive bowel sounds present, Soft to palpation, non-tender and no masses PALPATION: Yes Soft to palpation : COMMON NORMALS: Yes no CVA tenderness BLADDER/KIDNEY EXAM: Yes no CVA tenderness Back/Pelvis: COMMON NORMALS: no CVA tenderness Extremity: GENERAL: Yes normal exam except as noted RIGHT UPPER EXTREMITY: Yes hand & digits Right hand and digits: Yes inspection (Multiple superficial abrasion and puncture wounds 2nd-5th digit), Yes palpation (mild tenderness over 2nd-5th digit), Yes ROM exam (full) and Yes neurovascular exam (intact) Neuro: COMMON NORMALS: patient oriented x3 and moves all extremities SENSORIUM/ORIENTATION: Yes alert Skin: GENERAL SKIN EXAM: dry skin Course 2 Vital Signs: Vital signs: Vital Signs Temperature 98.4 F 06/24/21 19:25 Pulse Rate 94 06/24/21 19:25 Respiratory Rate 16 06/24/21 19:25 Blood Pressure 148/91 06/24/21 19:25 Pulse Oximetry 99 06/24/21 19:25 MDM - Animal Bite MDM Narrative: Medical decision making narrative: Patient is a 35-year-old male who comes to the ED with dog bite to right hand. Patient was given his ra bies postexposure prophylaxis treatment here in the ED. X-ray right hand showed no acute fractures or findings. Patient was discharged home with a prescription for Augmentin and told to follow-up for his next rabies shot 3 days. Return to ED precautions given. Patient understood and agree with plan. Imaging Data^: Xray Ortho: Attestation: I personally reviewed and interpreted this imaging study as follows: My impression: Right hand x-ray?no acute fractures or findings. Discharge Plan Discharge Patient Disposition: Home Clinical Impression: Need for post exposure prophylaxis for rabies Dog bite of right hand Qualifiers: Encounter type: initial encounter Qualified Code(s): S61.451A - Open bite of right hand, initial encounter Condition: Stable Prescriptions: New Augmentin 500-125 mg tablet 1 tab PO BID 7 Days Qty: 14 RF: 0 No Action ibuprofen [IBU-200] 200 mg tablet 200 mg PO Q6H PRN (Reason: Pain) RF: 0 esomeprazole magnesium [Nexium] 20 mg capsule,delayed release(DR/EC) 20 mg PO DAILY@0830 RF: 0 lithium carbonate 600 mg capsule 600 mg PO .qhs Qty: 30 RF: 1 Hold Instructions: Order Change quetiapine 100 mg tablet 100 mg PO .q hs Qty: 30 RF: 0 acetaminophen [Pain Relief Adult] 500 mg/15 mL Liquid 1,000 mg PO Q6H PRN (Reason: HEADACHES) RF: 0 albuterol sulfate 90 mcg/actuation HFA aerosol inhaler 2 inh INHALATION Q4H PRN (Reason: shortness of breath or wheezing) Qty: 6.7 RF: 0 meclizine 25 mg tablet 25 mg PO TID PRN (Reason: dizziness) Qty: 30 RF: 0 albuterol sulfate 90 mcg/actuation HFA aerosol inhaler 2 inh INHALATION Q6H PRN (Reason: shortness of breath or wheezing) Qty: 8 RF: 0 Discharge Orders: Discharge ED (Routine); Ordered 06/24/21 Ordered By: Jarad Kinsey Referrals: Veronica Schwartz FNP [Primary Care Provider] - Discharge Diet: Regular Discharge Activity: Increase activity as tolerated Patient Instructions: Rabies Vaccine (By injection) (Imovax Rabies, RabAvert), Animal Bite (ED), Rabies (ED) Activity Restrictions/Additional Instructions: Follow-up with medical provider as directed. return to the ED for rabies vaccination dose on day 3, 7 and 14. take medications as prescribed. Take [id number] Tylenol or Motrin for pain. Return to the ER or your medical provider if condition worsens. Please read and understand discharge instructions. If any questions, please ask. Coding Level of Care Code ED Commercial Truck Driver for Lizz Fwd Exam Comprehensive
--- NOTE | 2021-06-24 19:56 | XRR_ITS ---
PROCEDURE INFORMATION: Exam: XR Right Hand Exam date and time: 06/24/2021 7:56 PM Age: 35 years old Clinical indication: Injury or trauma; Other: Dog bite; Puncture; Hand; Right; Injury details: Chihuahua bite; Additional info: Dog bite on digits 2-4 TECHNIQUE: Imaging protocol: XR Right hand. Views: 3 or more views. COMPARISON: No relevant prior studies available. FINDINGS: Bones/joints: Alignment is normal. No acute fracture. Soft tissues: Soft tissue swelling in the proximal 2nd finger. No radiodense foreign body. XR/XR hand RT min 3V* [id number] IMPRESSION: 1. No acute fracture. 2. No radiodense foreign body. Radiation Dose CTDIVOL = (mGy): DLP = (mGy-cm)
[2021-06-24] MEDS: amoxicillin-clav 500-125 mg Tablet 1 TAB PO (20:29)
[2021-06-24] MEDS: rabies vaccine 2.5 unit SDV IM (20:50)
== END 2021-06-24 21:00 | disposition home or self-care (01) ==
PROVIDERS: Emergency Provider Physician Assistant; PCP Nurse Practitioner Family
DX: S61.451A Open bite of right hand, initial encounter (principal); W54.0XXA Bitten by dog, initial encounter; Z23 Encounter for immunization; Z20.3 Contact with and (suspected) exposure to rabies; Z29.14 Encounter for prophylactic rabies immune globulin; I11.0 Hypertensive heart disease with heart failure; I50.9 Heart failure, unspecified; Z95.0 Presence of cardiac pacemaker; Z87.891 Personal history of nicotine dependence
CPT/HCPCS: 73130; 90375; 90471; 90675; 96372; 99283

== ENCOUNTER 2021-06-26 22:57 | Emergency (ER) | payer BC, MEDICAID, SELFPAY ==
[2021-06-26 23:23] VITALS: BP 135/85; PULSE 74; RESP 19; TEMP 36.9; O2SAT 98; BMI 30.5
--- NOTE | 2021-06-26 23:59 | W.ED.GENADLT ---
HPI - General Adult General: Chief complaint: General Medical Time Seen by Provider: 06/26/21 23:31 History of Present Illness: HPI narrative: AboutPatient is a 35-year-old male comes to the ED to get second rabies booster shot. Patient was seen here in the ED on June 24 for a dog bite and was started on rabies vaccination series. Patient is here to get his second dose of the rabies vaccination. Dog bite and right hand is healing well and feels a lot better. Patient has no complaints. He is continue to take his diuretics daily as prescribed. Denies any fever, chills, increased pain or swelling of right hand, purulent drainage from dog bite. Associated symptoms: Deny chest pain, dyspnea, headache(s), nausea, rash, palpitations or vomiting Review of Systems Narrative: Denies any current symptoms. Const: Denies: fever(s), chills or fatigue Eyes: Denies: change in vision or eye discomfort ENMT: Denies: throat pain, odynophagia, nasal discharge or nasal congestion Card: Denies: chest pain, palpitations, edema, swelling of feet/ankles, dyspnea on exertion or orthopnea Resp: Denies: dyspnea, productive cough or non-productive cough GI: Denies: abdominal pain, nausea, vomiting, diarrhea, constipation or hematochezia : Denies: flank pain, difficulty urinating, dysuria or hematuria Musc: Denies: neck pain, back pain or extremity swelling Skin/Breast: Reports: new lesions (Dog bite on right hand healing well.); Denies: rash Neuro: Denies: headache(s), numbness in extremities or weakness in extremities PFS ED PFSH: Medical History AV heart block CHF (congestive heart failure) Congenital heart disease Fatigue GERD (gastroesophageal reflux disease) HTN (hypertension) Hx of cardiac pacemaker Hx of ventricular septal defect Major depressive disorder, recurrent, moderate Psychiatric care Seizure SVT (supraventricular tachycardia) VSD (ventricular septal defect) Surgical History History of cardiac radiofrequency ablation (RFA) S/P appendectomy S/P cardiac pacemaker procedure S/P knee surgery S/P knee surgery Left S/P rotator cuff repair Left 08/26/2014 S/P tonsillectomy S/P vasectomy Family History Father Diabetes Other Cancer Heart disease Hypertension Stroke Social History Smoking and tobacco status: never smoked Quit status (tobacco): has quit using tobacco Year quit tobacco: 12/25/2017 Former quit date comment: 1 PPD for 10 years Second hand smoke exposure: Yes Alcohol intake: never Current gender identity: Male Physical Exam Const: COMMON NORMALS: no acute distress, patient oriented x3, healthy appearing and alert GENERAL APPEARANCE: cooperative and comfortable HENMT: COMMON NORMALS: normocephalic HEAD & SCALP: normocephalic MOUTH: Normal oral and palatal mucosa present THROAT: posterior oropharynx normal and uvula midline Neck/C-Spine: COMMON NORMALS: supple GENERAL: Yes normal visual inspection Resp: COMMON NORMALS: normal respiratory effort, No retractions, No use of accessory muscles and clear to auscultation bilaterally AUSCULTATION: clear to auscultation bilaterally Cardio: COMMON NORMALS: regular rate, regular rhythm, S1 normal heart sound present, S2 normal heart sound present, No gallops present (Cardio), No clicks present (Cardio), No murmurs present (Cardio) and Peripheral pulses 2+ throughout RATE: regular rate RHYTHM: regular rhythm HEART SOUNDS: S1 normal heart sound present and S2 normal heart sound present PERIPHERAL PULSES: Peripheral pulses 2+ throughout GI: COMMON NORMALS: Normal to inspection, nondistended, normoactive bowel sounds present, Soft to palpation, non-tender and no masses PALPATION: Yes Soft to palpation : COMMON NORMALS: Yes no CVA tenderness BLADDER/KIDNEY EXAM: Yes no CVA tenderness Back/Pelvis: COMMON NORMALS: no CVA tenderness Extremity: COMMON NORMALS: normal to inspection NARRATIVE EXTREMITY EXAM: Dog bite on right hand appears to be healing well there is no erythema, warmth or purulent drainage from dog bite wounds seen. No swelling. Neuro: COMMON NORMALS: patient oriented x3 and moves all extremities SENSORIUM/ORIENTATION: Yes alert Skin: NARRATIVE SKIN EXAM: Dog bite on right hand appears to be healing well there is no erythema, warmth or purulent drainage from dog bite wounds seen. No swelling. GENERAL SKIN EXAM: dry skin Course Vital Signs: Vital signs: Vital Signs Temperature 98.4 F 06/26/21 23:23 Pulse Rate 81 06/27/21 00:30 Respiratory Rate 16 06/27/21 00:30 Blood Pressure 138/69 06/27/21 00:30 Pulse Oximetry 98 06/27/21 00:30 MDM - General Adult MDM Narrative: Medical decision making narrative: Patient is a 35-year-old male who comes to the ED to get his next dose of rabies vaccination. Patient was seen here for dog bite on June 24 and started on rabies vaccination series. Today he has no new complaints and says his dog bite area is healing up well and he has been taking his antibiotics daily. Exam shows improvement in dog bite of right hand and is healing well. Patient was given rabies vaccination while here in the ED. He was discharged home and told to return to the ED for his next rabies vaccination shot in 4 days. Return to ED precautions given. Patient understood and agreed with plan. Discharge Plan Discharge Patient Disposition: Home Clinical Impression: Encounter for repeat administration of rabies vaccination Condition: Stable Prescriptions: No Action ibuprofen [IBU-200] 200 mg tablet 200 mg PO Q6H PRN (Reason: Pain) RF: 0 esomeprazole magnesium [Nexium] 20 mg capsule,delayed release(DR/EC) 20 mg PO DAILY@0830 RF: 0 lithium carbonate 600 mg capsule 600 mg PO .qhs Qty: 30 RF: 1 Hold Instructions: Order Change quetiapine 100 mg tablet 100 mg PO .q hs Qty: 30 RF: 0 acetaminophen [Pain Relief Adult] 500 mg/15 mL Liquid 1,000 mg PO Q6H PRN (Reason: HEADACHES) RF: 0 albuterol sulfate 90 mcg/actuation HFA aerosol inhaler 2 inh INHALATION Q4H PRN (Reason: shortness of breath or wheezing) Qty: 6.7 RF: 0 meclizine 25 mg tablet 25 mg PO TID PRN (Reason: dizziness) Qty: 30 RF: 0 albuterol sulfate 90 mcg/actuation HFA aerosol inhaler 2 inh INHALATION Q6H PRN (Reason: shortness of breath or wheezing) Qty: 8 RF: 0 Discharge Orders: Discharge ED (Routine); Ordered 06/27/21 Ordered By: Jarad Kinsey Referrals: Veronica Schwartz FNP [Primary Care Provider] - Discharge Diet: Regular Patient Instructions: Rabies Vaccine (By injection) Activity Restrictions/Additional Instructions: Follow-up with medical provider as directed. return to the ED for rabies vaccination dose on day 7 and 14. Continue taking previously prescribed antibiotic. Return to the ER or your medical provider if condition worsens. Please read and understand discharge instructions. If any questions, please ask. Coding Level of Care Code ED Ebd Special Education Teacher for Lizz Fwd Exam Comprehensive
[2021-06-27 00:08] VITALS: RESP 16; O2SAT 98
[2021-06-27] MEDS: rabies vaccine 2.5 unit SDV IM (00:13)
[2021-06-27 00:30] VITALS: BP 138/69; PULSE 81; RESP 16; O2SAT 98
== END 2021-06-27 00:30 | disposition home or self-care (01) ==
PROVIDERS: Emergency Provider Physician Assistant; PCP Nurse Practitioner Family
DX: Z29.14 Encounter for prophylactic rabies immune globulin (principal); Z20.3 Contact with and (suspected) exposure to rabies; Z23 Encounter for immunization; I11.0 Hypertensive heart disease with heart failure; I50.9 Heart failure, unspecified; Z95.0 Presence of cardiac pacemaker; Z87.891 Personal history of nicotine dependence
CPT/HCPCS: 90471; 90675; 99282

== ENCOUNTER → 2021-06-28 07:12 | Outpatient (BNVA) | payer BC, SELFPAY | PROVIDERS: PCP Nurse Practitioner Family; Visit Provider Nurse Practitioner Psychiatric/Mental Health | DX: F33.1 Major depressive disorder, recurrent, moderate (principal); F41.9 Anxiety disorder, unspecified; F43.12 Post-traumatic stress disorder, chronic; F60.9 Personality disorder, unspecified | CPT/HCPCS: 99213 ==

== ENCOUNTER 2021-06-30 20:33 | Emergency (ER) | payer BC, MEDICAID, SELFPAY ==
[2021-06-30 20:39] VITALS: BP 139/103; PULSE 82; RESP 18; TEMP 36.1; O2SAT 99; BMI 28.8
[2021-06-30 20:42] VITALS: BP 137/105; PULSE 81; RESP 16; TEMP 36.8; O2SAT 100
--- NOTE | 2021-06-30 20:44 | ED_ITS ---
HPI - General Adult General: Chief complaint: General Medical Stated complaint: 2nd Rabies Shots Time Seen by Provider: 06/30/21 20:41 History of Present Illness: HPI narrative: 35-year-old male presents due to third dose of rabies vaccination. Recently was bitten by a dog and rabies vaccination series was started. States that wound is healing well and denies any further focal pain. Denies any fevers or chills. Denies any previous adverse reactions to other vaccinations. Review of Systems Narrative: - CONSTITUTIONAL: Denies weight loss, fever and chills. - HEENT: Denies changes in vision and hearing. - RESPIRATORY: Denies SOB and cough. - CV: Denies palpitations and CP. - GI: Denies abdominal pain, nausea, vomiting and diarrhea. - : Denies dysuria and urinary frequency. - MSK: Denies myalgia and joint pain. - SKIN: Denies rash and pruritus. - NEUROLOGICAL: Denies headache, weakness, numbness and syncope. - PSYCHIATRIC: Denies suicidal ideation PFS ED PFSH: Medical History AV heart block CHF (congestive heart failure) Congenital heart disease Fatigue GERD (gastroesophageal reflux disease) HTN (hypertension) Hx of cardiac pacemaker Hx of ventricular septal defect Major depressive disorder, recurrent, moderate Psychiatric care Seizure SVT (supraventricular tachycardia) VSD (ventricular septal defect) Surgical History History of cardiac radiofrequency ablation (RFA) S/P appendectomy S/P cardiac pacemaker procedure S/P knee surgery S/P knee surgery Left S/P rotator cuff repair Left 08/26/2014 S/P tonsillectomy S/P vasectomy Family History Father Diabetes Other Cancer Heart disease Hypertension Stroke Social History Smoking and tobacco status: never smoked Quit status (tobacco): has quit using tobacco Year quit tobacco: 12/25/2017 Former quit date comment: 1 PPD for 10 years Second hand smoke exposure: Yes Alcohol intake: never Current gender identity: Male Physical Exam Narrative: EXAM NARRATIVE: - GENERAL: Alert and oriented x 3. No acute distress. Well-nourished. - EYES: EOMI. Anicteric. - HENT: Atraumatic, no C-spine tenderness. Moist mucous membranes. No scleral icterus. No cervical lymphadenopathy. - LUNGS: Clear to auscultation bilaterally. No accessory muscle use. Equal lung sounds bilaterally. No respiratory distress. - CARDIOVASCULAR: Regular rate and rhythm. No murmur. No JVD. - ABDOMEN: Soft, non-tender and non-distended. Negative CVA tenderness bilaterally, no rebound or guarding, negative Flowers sign. No palpable masses. - EXTREMITIES: No edema. Non-tender. - SKIN: Small abrasions to MCP knuckles of second and fifth fingers, well- healing. No rashes or lesions. Warm. - NEUROLOGIC: No meningismus or focal neurological deficits. CN II-XII grossly i ntact. - PSYCHIATRIC: Cooperative. Appropriate mood and affect. Course Vital Signs: Vital signs: Vital Signs Temperature 98.2 F 06/30/21 20:42 Pulse Rate 81 06/30/21 20:42 Respiratory Rate 16 06/30/21 20:42 Blood Pressure 137/105 06/30/21 20:42 Pulse Oximetry 100 06/30/21 20:42 MDM - General Adult MDM Narrative: Medical decision making narrative: 35-year-old male here to receive rabies vaccination series. Reports recent dog bite. Wounds have been healing appropriately. No sign of focal infection. Rabies vaccination provided without adverse event. At this time I believe patient would be safe for discharge and outpatient follow-up. Return precautions provided. Plan was reviewed with the patient who expressed understanding. Questions answered. Patient will follow up with PCP. Patient discharged in stable condition. Discharge Plan Discharge Patient Disposition: Home Clinical Impression: Exposure to rabies Condition: Stable Prescriptions: No Action quetiapine 100 mg tablet 100 mg PO .q hs Qty: 30 RF: 1 ibuprofen [IBU-200] 200 mg tablet 200 mg PO Q6H PRN (Reason: Pain) RF: 0 esomeprazole magnesium [Nexium] 20 mg capsule,delayed release(DR/EC) 20 mg PO DAILY@0830 RF: 0 acetaminophen [Pain Relief Adult] 500 mg/15 mL Liquid 1,000 mg PO Q6H PRN (Reason: HEADACHES) RF: 0 albuterol sulfate 90 mcg/actuation HFA aerosol inhaler 2 inh INHALATION Q4H PRN (Reason: shortness of breath or wheezing) Qty: 6.7 RF: 0 meclizine 25 mg tablet 25 mg PO TID PRN (Reason: dizziness) Qty: 30 RF: 0 albuterol sulfate 90 mcg/actuation HFA aerosol inhaler 2 inh INHALATION Q6H PRN (Reason: shortness of breath or wheezing) Qty: 8 RF: 0 Discharge Orders: Discharge ED (Routine); Ordered 06/30/21 Ordered By: Onel Avery Referrals: Veronica Schwartz FNP [Staff Physician] - 4-7 days Patient Instructions: Rabies Vaccine (By injection), Rabies (ED), Opioid Safety Coding Level of Care Code ED Speech And Language Clinician for Lizz Jennings
[2021-06-30] MEDS: rabies vaccine 2.5 unit SDV IM (20:51)
[2021-06-30 20:55] VITALS: BP 141/94; PULSE 78; RESP 16; TEMP 36.8; O2SAT 100
== END 2021-06-30 20:57 | disposition home or self-care (01) ==
PROVIDERS: Emergency Provider Emergency Medicine
DX: Z29.14 Encounter for prophylactic rabies immune globulin (principal); Z20.3 Contact with and (suspected) exposure to rabies; Z23 Encounter for immunization; I11.0 Hypertensive heart disease with heart failure; I50.9 Heart failure, unspecified; Z95.0 Presence of cardiac pacemaker; Z87.891 Personal history of nicotine dependence
CPT/HCPCS: 90471; 90675; 99282

== ENCOUNTER 2021-07-07 20:47 | Emergency (ER) | payer BC, MEDICAID, SELFPAY ==
[2021-07-07 20:54] VITALS: BP 152/99; PULSE 77; RESP 18; TEMP 36.8; O2SAT 100; BMI 28.8
--- NOTE | 2021-07-07 21:03 | ED_ITS ---
HPI - General Adult General: Chief complaint: General Medical Stated complaint: last booter for rabies Time Seen by Provider: 07/07/21 21:02 History of Present Illness: HPI narrative: Here for the last rabies shot. Wound is doing fine has no complaints. Associated symptoms: Reports no associated symptoms Review of Systems Narrative: Here for rabies shot. [facility] ED PFSH: Medical History AV heart block CHF (congestive heart failure) Congenital heart disease Fatigue GERD (gastroesophageal reflux disease) HTN (hypertension) Hx of cardiac pacemaker Hx of ventricular septal defect Major depressive disorder, recurrent, moderate Psychiatric care Seizure SVT (supraventricular tachycardia) VSD (ventricular septal defect) Surgical History History of cardiac radiofrequency ablation (RFA) S/P appendectomy S/P cardiac pacemaker procedure S/P knee surgery S/P knee surgery Left S/P rotator cuff repair Left 08/26/2014 S/P tonsillectomy S/P vasectomy Family History Father Diabetes Other Cancer Heart disease Hypertension Stroke Social History Smoking and tobacco status: never smoked Quit status (tobacco): has quit using tobacco Year quit tobacco: 12/25/2017 Former quit date comment: 1 PPD for 10 years Second hand smoke exposure: Yes Alcohol intake: never Current gender identity: Male Physical Exam Const: COMMON NORMALS: no acute distress GENERAL APPEARANCE: cooperative Psych: COMMON NORMALS: mental status grossly normal Course Vital Signs: Vital signs: Vital Signs Temperature 98.2 F 07/07/21 20:54 Pulse Rate 77 07/07/21 20:54 Respiratory Rate 18 07/07/21 20:54 Blood Pressure 152/99 07/07/21 20:54 Pulse Oximetry 100 07/07/21 20:54 Discharge Plan Discharge Prescriptions: No Action quetiapine 100 mg tablet 100 mg PO .q hs Qty: 30 RF: 1 ibuprofen [IBU-200] 200 mg tablet 200 mg PO Q6H PRN (Reason: Pain) RF: 0 esomeprazole magnesium [Nexium] 20 mg capsule,delayed release(DR/EC) 20 mg PO DAILY@0830 RF: 0 acetaminophen [Pain Relief Adult] 500 mg/15 mL Liquid 1,000 mg PO Q6H PRN (Reason: HEADACHES) RF: 0 albuterol sulfate 90 mcg/actuation HFA aerosol inhaler 2 inh INHALATION Q4H PRN (Reason: shortness of breath or wheezing) Qty: 6.7 RF: 0 meclizine 25 mg tablet 25 mg PO TID PRN (Reason: dizziness) Qty: 30 RF: 0 albuterol sulfate 90 mcg/actuation HFA aerosol inhaler 2 inh INHALATION Q6H PRN (Reason: shortness of breath or wheezing) Qty: 8 RF: 0 Coding Level of Care Code ED Spindle Carver for Lizz Jennings
[2021-07-07] MEDS: rabies vaccine 2.5 unit SDV IM (21:06)
[2021-07-07 21:28] VITALS: BP 139/88; PULSE 73; RESP 18; O2SAT 98
== END 2021-07-07 21:29 | disposition home or self-care (01) ==
PROVIDERS: Emergency Provider Nurse Practitioner Family; PCP Nurse Practitioner Family
DX: Z29.14 Encounter for prophylactic rabies immune globulin (principal); Z20.3 Contact with and (suspected) exposure to rabies; Z23 Encounter for immunization; I11.0 Hypertensive heart disease with heart failure; I50.9 Heart failure, unspecified; Z95.0 Presence of cardiac pacemaker; Z87.891 Personal history of nicotine dependence
CPT/HCPCS: 90471; 90675; 99282

== ENCOUNTER → 2021-07-24 12:25 | Outpatient (BNVA) | payer BC, MEDICAID, SELFPAY | PROVIDERS: PCP Family Medicine; Referring Provider Family Medicine; Visit Provider Internal Medicine | DX: R76.8 Other specified abnormal immunological findings in serum (principal); M25.50 Pain in unspecified joint; Z11.59 Encounter for screening for other viral diseases; R53.83 Other fatigue; Q24.9 Congenital malformation of heart, unspecified; M24.9 Joint derangement, unspecified; Z79.899 Other long term (current) drug therapy; F17.200 Nicotine dependence, unspecified, uncomplicated | CPT/HCPCS: 36415; 81003; 82306; 82550; 82607; 82728; 83540; 83735; 84100; 84403; 84439; 86140; 86160; 86704; 86803; 86812; 87340; 99204 ==

== ENCOUNTER 2021-08-06 08:19 | Outpatient (CLI) | payer BC, MEDICAID, SELFPAY ==
--- NOTE | 2021-08-06 08:32 | XR_ITS ---
WS: [id number] CERVICAL SPINE FLEXION EXTENSION TECHNIQUE: 3 views of the cervical spine: lateral neutral, flexion and extension views. CLINICAL INFORMATION: CERVICALGIA COMPARISON: None. FINDINGS: Straightening of the normal cervical lordosis. Slight retrolisthesis C3 on C4 measuring 1.4 mm. Sligh t retrolisthesis C3 on C4 slightly increases in extension measuring 2.75 mm. This is unchanged in fle xion. Normal C1-C2 articulation. Normal prevertebral soft tissues. Posterior elements are normal. No other significant findings. XR/XR cervical spine fl/ex [id number] IMPRESSION: Slight instability at C3-C4 described above.
--- NOTE | 2021-08-06 08:32 | CT_ITS ---
WS: [id number] CT CERVICAL SPINE TECHNIQUE: Noncontrast CT of the cervical spine with coronal and sagittal reformatted images. CLINICAL INFORMATION: CERVICALGIA COMPARISON: CT neck 2009 and MRI 2005 DLP: 1542.[address] scans at [facility] use at least one of these dose optimization techniques: automated e xposure control; mA and/or kV adjustment per patient size (includes targeted exams where dose is matc hed to clinical indication); or iterative reconstruction. FINDINGS: Straightening of the normal cervical lordosis. Normal C1-C2 articulation. No high-grade central canal stenosis. Mild spondylitic changes appear progressed since 2009. C2-C3: Mild right and no significant left foraminal narrowing. Spinal canal is patent. C3-C4: Mild disc osteophytic ridging. Mild bilateral foraminal narrowing. Spinal canal is patent. C4-C5: Mild disc osteophytic ridging. Mild facet arthropathy. Mild left and no significant right fora ligia narrowing. Spinal canal is patent. C5-C6: Mild disc osteophytic ridging. Mild right and no significant left foraminal narrowing. Spinal canal is patent. Mild facet arthropathy. C6-C7: No significant disc bulging. Mild facet arthropathy. Spinal canal and foramen are patent. C7-T1: No significant disc bulging. Spinal canal and foramen are patent. Visualized posterior nasopharynx: Normal. Prevertebral soft tissues: Normal. Mucosal thickening left maxillary sinus. Mastoid air cells well aerated. CT/CT cervical spin wo con* [id number] IMPRESSION: 1. Straightening of the normal cervical lordosis. No high-grade central canal narrowing. 2. Mild bony foraminal narrowing worse at right C5-C6. 3. Mild bilateral C3-4 foraminal narrowing. 4. Mild facet arthropathy more prominent at C4-C5 and C5-C6.
== END 2021-08-06 08:20 | disposition home or self-care (01) ==
PROVIDERS: PCP Family Medicine; Visit Provider Nurse Practitioner
DX: M53.2X2 Spinal instabilities, cervical region (principal)
CPT/HCPCS: 72040; 72125

== ENCOUNTER → 2021-08-14 13:00 | Outpatient (BNVA) | payer BC, MEDICAID, SELFPAY | PROVIDERS: PCP Family Medicine; Visit Provider Internal Medicine | DX: R76.8 Other specified abnormal immunological findings in serum (principal); M25.50 Pain in unspecified joint; R53.83 Other fatigue; M65.4 Radial styloid tenosynovitis [de Quervain]; Z87.891 Personal history of nicotine dependence | CPT/HCPCS: 99214 ==

== ENCOUNTER → 2021-08-16 07:55 | Outpatient (BNVA) | payer BC, SELFPAY | PROVIDERS: PCP Nurse Practitioner Family; Visit Provider Nurse Practitioner Psychiatric/Mental Health | DX: F33.1 Major depressive disorder, recurrent, moderate (principal); F43.12 Post-traumatic stress disorder, chronic; F41.9 Anxiety disorder, unspecified; F60.9 Personality disorder, unspecified | CPT/HCPCS: 99213 ==

== ENCOUNTER 2021-11-20 09:07 | Outpatient (CLI) | payer BC, MEDICAID, SELFPAY ==
[2021-11-20 09:41] VITALS: BMI 29.1
--- NOTE | 2021-11-20 09:41 | NMCV_ITS ---
NM juan antonio perf SPECT r/s* [id number] Ariel Rob Age: 35 Gender: M : 1985 Exam Date: 11/20/2021 10:21 Ordering Phys: Caroline Sarmiento Technologist: ELLEN Mishra Exam Location: [facility] Indications: CHEST PAIN STRESS TEST [facility] IMAGE PROTOCOL Rest/Stress 1 Lexiscan Day Radiopharmaceutical Dose (mCi) Administration Site Administered by Rest: Tc-99m 11.0 IV ELLEN Mishra Sestamibi Stress:Tc-99m 33.0 IV ELLEN Hernandez Sestamibi Rest: 20-Nov-2021 60 Discovery 630 Stress: 20-Nov-2021 30 Discovery 630 0.4mg Lexiscan. Images obtained in supine and prone position. SPECT RESULTS Technical Quality: Excellent Raw Data Analysis: Normal Image Corrections: No attenuation or motion correction applied Summed Stress Score: 9 Summed Rest Score: 7 Summed Difference Score: 3 PERFUSION FINDINGS There is large in size, mostly fixed perfusion defect noted in the apical, apical inferior, apical lateral lin with small area of taina-infarct ischemia. This is consistent with prior infarct with taina-infarct ischemia FUNCTIONAL RESULTS (calculated via Gated SPECT) Stress Image LV EF (%): 54 Stress EDV (mL):116 TID: 0.96 Stress ESV (mL):53 FUNCTIONAL FINDINGS: LV systolic function is borderline reduced with akinetic apical wall IMPRESSIONS 1. Abnormal myocardial perfusion imaging with large sized prior infarct in the apical, apical inferior, apical lateral lin with small area of taina-infarct ischemia 2. LV systolic function is borderline reduced Larry Hanson MD (Electronically Signed) Final Date: 23 November 2021 10:26 S
--- NOTE | 2021-11-20 09:41 | ECG_ITS ---
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 Interpretive Statements NAME OF STUDY: LEXISCAN SESTAMIBI STRESS TEST INDICATION: [Chest Pain, ] Procedure: At the baseline, the blood pressure was 125/92 mmHg with a heart rate of 78 bpm. The electrocardiogram showed normal sinus rhythm, left bundle branch block, normal axis with normal ST and T's. The Lexiscan was infused over a period of 20 seconds. A total of 0.4 mg of Lexiscan was infused. The stress phase was continued for a total of 5 minutes. Heart rate was at the end of stress phase was 99 bpm and a blood pressure of 137/85 mmHg. The EKG at the peak infusion revealed since normal sinus rhythm with no significant ST-T wave changes. Sestamibi was injected 20 seconds after the Lexiscan infusion. Blood pressure at the end of recovery phase was 139/88 mmHg with a heart rate of 93 bpm. Conclusion: 1. Normal EKG response to Lexiscan infusion 2. No Lexiscan induced chest pain or cardiac arrhythmia. 3. Normal blood pressure and heart rate response. 4. Sestamibi/sestamibi perfusion scan pending; see separate report. Electronically Signed On 12-22-2021 12:17:07 CDT by Larry Hanson M.D. [id number]
[2021-11-20] MEDS: regadenoson 0.4 Mg/5 ml Syringe IVP (10:57)
[2021-11-20 11:42] VITALS: BP 137/85; PULSE 92
== END 2021-11-20 09:08 | disposition home or self-care (01) ==
LOC: CDL 09:08
PROVIDERS: Visit Provider Nurse Practitioner Family
DX: R07.9 Chest pain, unspecified (principal); R06.02 Shortness of breath
CPT/HCPCS: 78452; 93017; A9500; J2785

== ENCOUNTER → 2021-12-11 16:26 | Outpatient (BNVA) | payer BC, MEDICAID, SELFPAY | PROVIDERS: Visit Provider Orthopaedic Surgery Hand Surgery | DX: Z01.818 Encounter for other preprocedural examination (principal); Z20.822 Contact with and (suspected) exposure to COVID-19 | CPT/HCPCS: 87635 ==

== ENCOUNTER 2021-12-13 07:37 | Outpatient (CLI) | payer BC, MEDICAID, SELFPAY ==
--- NOTE | 2021-12-13 08:30 | USCV_ITS ---
Ariel Rob Age: 35 Gender: M : 1985 Exam Date: 12/13/2021 07:56 Ordering Phys: Caroline Sarmiento Technologist: PATRICIA Exam Location: [facility] Indication: Chest pain BP: 145 / 90 HR: 80 Rhythm: Sinus Technical Quality: Suboptimal MEASUREMENTS (Male / Female) Normal Values 2D ECHO LV Diastolic Diameter PLAX 4.8 cm 4.2 - 5.9 / 3.9 - 5.3 cm LV Systolic Diameter PLAX 3.4 cm IVS Diastolic Thickness 1.0 cm 0.6 - 1.0 / 0.6 - 0.9 cm IVS Systolic Thickness 1.3 cm LVPW Diastolic Thickness 1.2 cm 0.6 - 1.0 / 0.6 - 0.9 cm LVPW Systolic Thickness 1.7 cm LVOT Diameter 2.0 cm LV Ejection Fraction 2D Teich 56.7 % LV Ejection Fraction MOD 2C 55.3 % LV Ejection Fraction 2C AL 55.3 % LA Diameter 3.3 cm LA Width 3.0 cm LA Height 4.5 cm RA Width 3.2 cm RA Height 3.6 cm Aorta at Sinotubular Diameter 2.7 cm M-MODE Aortic Annulus Diameter 3.1 cm LA Ao Ratio MM 1.2 MV E Point Septal Separation 1.3 cm DOPPLER AV Peak Velocity 91.0 cm/s LVOT Peak Velocity 81.0 cm/s AV Area Cont Eq vti 2.8 cm squared AV Area Cont Eq pk 2.8 cm squared MV Area PHT 4.9 cm squared Mitral E to A Ratio 1.1 MV E' Velocity 45.4 cm/s Mitral E to MV E' Ratio 10.5 Mitral E to LV E' Lateral Ratio 8.4 Mitral E to LV E' Septal Ratio 14.2 TR Peak Velocity 229.8 cm/s TR Peak Gradient 21.1 mmHg TR Mean Velocity 146.0 cm/s TR Mean Gradient 9.5 mmHg TR Velocity Time Integral 56.0 cm TV Peak E Velocity 87.0 cm/s Right Atrial Pressure 3.0 mmHg Pulmonary Artery Systolic Pressu 24.1 mmHg PV Peak Velocity 147.0 cm/s RV Acceleration Time 0.1 s RV Ejection Time 0.3 s RV AcT/ET 0.5 FINDINGS Left Ventricle Normal LV size and ejection fraction 55%. Mild hypokinesia of the apical septum.mild left ventricular hypertrophy. Right Ventricle Normal right ventricular size and systolic function. Right Atrium Pacemaker/defibrillator wire on the right atrium and right ventricle Left Atrium Possibly of normal size Mitral Valve Thickened mitral valve. Mild mitral valve regurgitation. Aortic Valve No gross abnormalities were noted Tricuspid Valve Mild tricuspid valve regurgitation. Pulmonic Valve Trace pulmonary valve regurgitation. Pericardium No pericardial effusion. Aorta Normal aortic annulus size. CONCLUSIONS Normal LV size and ejection fraction 55%. Mild hypokinesia of the apical septum.mild left ventricular hypertrophy. Thickened mitral valve. Mild mitral valve regurgitation. Mild tricuspid valve regurgitation. Trace pulmonary valve regurgitation. Estimated pulmonary peak systolic pressure of 24 mmHg There is no pericardial effusion. Technically difficult study because of the poor ultrasonic window. Dr aMn Walker MD FACC (Electronically Signed) Final Date: 13 December 2021 17:52 S
== END 2021-12-13 07:38 | disposition home or self-care (01) ==
LOC: RAD 07:38
PROVIDERS: PCP Family Medicine; Visit Provider Nurse Practitioner Family
DX: Q24.9 Congenital malformation of heart, unspecified (principal); R07.9 Chest pain, unspecified; I08.1 Rheumatic disorders of both mitral and tricuspid valves
CPT/HCPCS: 93306

== ENCOUNTER → 2021-12-26 11:28 | Outpatient (BNVA) | payer BC, MEDICAID, SELFPAY | PROVIDERS: PCP Family Medicine; Visit Provider Internal Medicine | DX: I47.1 Supraventricular tachycardia (principal); R53.82 Chronic fatigue, unspecified; Q24.9 Congenital malformation of heart, unspecified; M79.606 Pain in leg, unspecified | CPT/HCPCS: 99214 ==

== ENCOUNTER 2021-12-27 18:05 | Emergency (ER) | payer OTHER, BC, MEDICAID, SELFPAY ==
[2021-12-27] VITALS (49 sets, daily range): BP systolic 116–138; BP diastolic 60–90; PULSE 70–85; RESP 14–33; TEMP 36.9; O2SAT 93–100; BMI 30.5
--- NOTE | 2021-12-27 18:12 | XRR_ITS ---
PROCEDURE INFORMATION: Exam: XR Chest Exam date and time: 12/27/2021 6:24 PM Age: 35 years old Clinical indication: Chest wall pain; Prior surgery; Surgery date: 6+ months; Surgery type: Pacer, openheart; Additional info: Chest pain TECHNIQUE: Imaging protocol: XR of the chest. Views: 1 view. COMPARISON: CR XR chest 1V portable [id number] 04/18/2021 11:37 PM FINDINGS: Tubes, catheters and devices: Dual lead pacing device with generator over the right hemithorax and leads over the right atrial appendage and right ventricle apex. Lungs: Lungs symmetrically expanded. No consolidation. Pleural spaces: Unremarkable. No pleural effusion. No pneumothorax. Heart/Mediastinum: Unremarkable. No cardiomegaly. Bones/joints: Median sternotomy wires noted. XR/XR chest 1V portable [id number] IMPRESSION: No acute radiographic findings.
--- NOTE | 2021-12-27 18:12 | ECG_ITS ---
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 Measurements Intervals [place] Rate: 75 P: 38 HI: 200 QRS: -87 QRSD: 193 T: 76 QT: 455 QTc: 509 Interpretive Statements ELECTRONIC VENTRICULAR PACEMAKER ABNORMAL RHYTHM ECG Compared to ECG 04/06/2021 19:40:23 No significant changes Electronically Signed On 12-28-2021 18:15:17 CDT by Man Walker M.D. [id number]
[2021-12-27 18:54] LABS: Basophils # 0.1 10^3/uL (0.0-0.1); Basophils % 0.6 %; Eosinophils # 0.3 10^3/uL (0.0-0.8); Eosinophils % 3.7 %; Hematocrit 43.8 % (42.0-52.0); Hemoglobin 15.6 g/dL (11.7-16.6); Lymphocytes # 2.2 10^3/uL (0.8-4.8); Lymphocytes % 26.9 %; Mean Corpuscular HGB Conc 35.6 g/dL (30.0-36.0); Mean Corpuscular Hemoglobin 29.9 pg (28.0-34.0); Mean Corpuscular Volume 83.9 fl (80-94); Mean Platelet Volume 10.1 fL (7.4-10.4); Monocytes # 0.8 10^3/uL (0.2-0.9); Monocytes % 9.8 %; Neutrophils # 4.78 10^3/uL (1.8-7.7); Neutrophils % 58.6 %; Nucleated Red Blood Cells % 0 %; Platelet Count 200 10^3/cmm (130-400); Red Blood Count 5.22 10^6/uL (4.1-5.3); Red Cell Distribution Width 11.8 % (12.1-15.1); White Blood Count 8.2 10^3/uL (4.0-10.0)
--- NOTE | 2021-12-27 19:07 | PC.NURSE ---
PT IS ON CONTINUOUS SPO2, NIBP, AND CM.
[2021-12-27 19:30] LABS: Troponin(5th) Baseline 6 ng/L (0-15)
[2021-12-27 19:31] LABS: Anion Gap 12.6 (5-19); Blood Urea Nitrogen 16 mg/dL (6-20); Calcium 9.4 mg/dL (8.5-10.5); Carbon Dioxide 29 mmol/L (22-29); Chloride 100 mmol/L (98-107); Glomerular Filtration Rate 111.3 mL/min (90-130); Glucose 75 mg/dL (65-115); Osmolality Calculated 286 mOsm/kg (285-295); Potassium 3.6 mmol/L (3.5-5.1); Sodium 138 mmol/L (136-145)
[2021-12-27 19:51] LABS: D Dimer 0.33 ug/mIFEU (0-0.59)
--- NOTE | 2021-12-27 20:12 | ECG_ITS ---
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 Measurements Intervals [place] Rate: 71 P: 153 NV: 176 QRS: -87 QRSD: 194 T: 78 QT: 472 QTc: 514 Interpretive Statements ELECTRONIC ATRIAL PACEMAKER ELECTRONIC VENTRICULAR PACEMAKER ABNORMAL RHYTHM ECG Compared to ECG 12/27/2021 18:17:26 No significant changes Electronically Signed On 12-28-2021 18:21:57 CDT by Man Wlaker M.D. [id number]
[2021-12-27 21:06] LABS: Troponin 5 2HR Delta 0 ABS# (0-10)
--- NOTE | 2021-12-27 22:00 | CTR_ITS ---
PROCEDURE INFORMATION: Exam: CTA Chest With Contrast Exam date and time: 12/27/2021 10:18 PM Age: 35 years old Clinical indication: Shortness of breath; Chest pressure; Other: N/a; Prior surgery; Surgery type: Open heart for congenital defect. Pacemaker. Appy. ; Patient HX: Chest pain with SOB and nausea. ; Additional info: Eval for dissection TECHNIQUE: Imaging protocol: Computed tomographic angiography of the chest with contrast. 3D rendering (Not supervised by radiologist): MIP and/or 3D reconstructed images were created by the technologist. Radiation optimization: All CT scans at this facility use at least one of these dose optimization techniques: automated exposure control; mA and/or kV adjustment per patient size (includes targeted exams where dose is matched to clinical indication); or iterative reconstruction. Contrast material: OMNI 350; Contrast volume: 95 ml; Contrast route: INTRAVENOUS (IV); COMPARISON: 1. CT Abdomen/Pelvis Renal [id number] 11/08/2018 9:47 PM 2. CTA Chest-Pulmonary Emb [id number] 09/04/2018 12:43 AM RADIATION DOSE METRICS: Total DLP (mGy-cm): 2814.25 FINDINGS: Tubes, catheters and devices: Right -sided pacemaker. Pulmonary arteries: No pulmonary embolus or aortic dissection. Aorta: See Pulmonary arteries finding. Other arteries: Direct origin of the left vertebral artery from the aortic arch which is a normal variant seen in 1% of the population. Lungs: Unremarkable. No consolidation. No masses. Pleural spaces: Unremarkable. No pneumothorax. No pleural effusion. Heart: Unremarkable. No cardiomegaly. No pericardial effusion. Lymph nodes: Unremarkable. No enlarged lymph nodes. Bones/joints: Stable sternotomy. Soft tissues: Unremarkable. PROCEDURE INFORMATION: Exam: CTA Abdomen and Pelvis With Contrast Exam date and time: 12/27/2021 10:18 PM Age: 35 years old Clinical indication: Shortness of breath; Chest pressure; Other: N/a; Prior surgery; Surgery type: Open heart for congenital defect. Pacemaker. Appy. ; Patient HX: Chest pain with SOB and nausea. ; Additional info: Eval for dissection TECHNIQUE: Imaging protocol: Computed tomographic angiography of the abdomen and pelvis with contrast material. 3D rendering (Not supervised by radiologist): MIP and/or 3D reconstructed images were created by the technologist. Radiation optimization: All CT scans at this facility use at least one of these dose optimization techniques: automated exposure control; mA and/or kV adjustment per patient size (includes targeted exams where dose is matched to clinical indication); or iterative reconstruction. Contrast material: OMNI 350; Contrast volume: 95 ml; Contrast route: INTRAVENOUS (IV); COMPARISON: 1. CT Abdomen/Pelvis Renal [id number] 11/08/2018 9:47 PM 2. CTA Chest-Pulmonary Emb [id number] 09/04/2018 12:43 AM RADIATION DOSE METRICS: Total DLP (mGy-cm): 2814.25 FINDINGS: Aorta: No abdominal aortic aneurysm or dissection. Celiac trunk and mesenteric arteries: No occlusion or significant stenosis. Renal arteries: Main right renal artery with accessory right renal artery. Right iliac arteries: No occlusion or significant stenosis. Left iliac arteries: No occlusion or significant stenosis. Liver: No mass. Gallbladder and bile ducts: Unremarkable. No calcified stones. No ductal dilation. Pancreas: Unremarkable. No mass. No ductal dilation. Spleen: Unremarkable. No splenomegaly. Adrenal glands: Unremarkable. No mass. Kidneys and ureters: Unremarkable. No solid mass. No hydronephrosis. Stomach and bowel: Unremarkable. No obstruction. No mucosal thickening. Appendix: No evidence of appendicitis. Intraperitoneal space: Unremarkable. No free air. No significant fluid collection. Lymph nodes: Unremarkable. No enlarged lymph nodes. Urinary bladder: Unremarkable. No mass. Reproductive: Unremarkable as visualized. Bones/joints: No acute fracture. No dislocation. Soft tissues: Unremarkable. CT/CT angio chest abdomen pelvis IMPRESSION: No pulmonary embolus or aortic dissection. IMPRESSION: No abdominal aortic aneurysm or dissection.
--- NOTE | 2021-12-27 22:10 | ED_ITS ---
Documented by User: Serafin Martinez MD 12/31/21 12:19 HPI - General Adult General: Chief complaint: Chest Pain Stated complaint: CP Time Seen by Provider: 12/27/21 18:12 History of Present Illness: Patient is a 35-year-old male with history of VSD s/p pacemaker, Erhlos-Danlos syndrome, prior IA followed by Dr. Hanson presenting to the emergency room with complaints of chest pain. Patient was initially seen at Dr. Hanson's office and he was under the impression that he should come to the emergency room for further evaluation of pain. On arrival, patient has had intermittent pressure-like pain that is occasionally sharp. Patient says that when he likes back, he had a tearing pain in his chest. Patient said that these pain last for few minutes at a time. Patient denies any diaphoresis, arm pain/jaw pain or leg pain. Patient says that he has chest pain at baseline and most recently the pain has worsened and decided to come to the emergency room for further evaluation. Patient denies any other focal complaints including abdominal complaints, nausea/vomiting, fever/chills, diarrhea, melena or hematochezia. Of note, patient has a stress test from 11/20/2021 which showed area of ischemia around previous infarction site. Onset: 2 day ago Duration:2 days Location:home Severity:moderate Associated symptoms: Reports chest pain; Deny dyspnea, nausea, rash, palpitations or vomiting Review of Systems Const: Denies: fever(s) or chills Eyes: Denies: change in vision ENMT: Denies: mouth pain Card: Reports: chest pain; Denies: palpitations Resp: Denies: dyspnea or non-productive cough GI: Denies: abdominal pain, nausea, vomiting or diarrhea : Denies: dysuria Musc: Denies: extremity pain Skin/Breast: Denies: rash or new lesions Neuro: Denies: weakness in extremities Psych: Reports: other (Normal mood) Yan/Lymph: Denies: easy bruising PFSH ED PFSH: Medical History AV heart block CHF (congestive heart failure) Congenital heart disease De Quervain's tenosynovitis Ibis-Danlos syndrome Fatigue GERD (gastroesophageal reflux disease) HTN (hypertension) Hx of cardiac pacemaker Hx of ventricular septal defect Major depressive disorder, recurrent, moderate Psychiatric care Seizure SVT (supraventricular tachycardia) VSD (ventricular septal defect) Surgical History History of cardiac radiofrequency ablation (RFA) S/P appendectomy S/P cardiac pacemaker procedure S/P knee surgery S/P knee surgery Left S/P rotator cuff repair Left 08/26/2014 S/P tonsillectomy S/P vasectomy Family History Father Diabetes Other Cancer Heart disease Hypertension Stroke Social History Smoking and tobacco status: former smoker Quit status (tobacco): has quit using tobacco Year quit tobacco: 12/25/2017 Former quit date comment: 1 PPD for 10 years Second hand smoke exposure: Yes Alcohol intake: never Current gender identity: Male Physical Exam Const: COMMON NORMALS: alert HENMT: COMMON NORMALS: atraumatic HEAD & SCALP: atraumatic MOUTH: moist mucous membranes not abnormal Eye: COMMON NORMALS: EOMs intact bilaterally and conjunctivae normal CONJUNCTIVA: Yes conjunctivae normal Neck/C-Spine: COMMON NORMALS: full ROM and supple Resp: COMMON NORMALS: normal respiratory effort and clear to auscultation bilaterally AUSCULTATION: clear to auscultation bilaterally Cardio: COMMON NORMALS: regular rate RATE: regular rate GI: COMMON NORMALS: Soft to palpation and non-tender PALPATION: Yes Soft to palpation Extremity: COMMON NORMALS: full ROM Neuro: SENSORIUM/ORIENTATION: Yes alert MOTOR EXAM: No Abnormal motor strength present and Other motor observations present (no focal motor deficits) Psych: COMMON NORMALS: speech normal SPEECH: Yes normal speech MOOD & AFFECT: Yes euthymic mood Course Vital Signs: Vital signs: Vital Signs Temperature 98.5 F 12/27/21 19:02 Pulse Rate 79 12/27/21 22:55 Respiratory Rate 17 12/27/21 22:55 Blood Pressure 116/80 12/27/21 23:15 Pulse Oximetry 97 12/27/21 22:55 MDM - General Adult Medical Decision Making 35-year-old male with a history of VSD s/p pacemaker, prior IA, Erhlos-Danlos syndrome presents the emergency room with complaints of chest pain acutely worsened last 2 days. Patient had 2 episodes of occasionally pressure-like occasionally stabbing chest pain in the ER. Troponin x2 within normal limit. EKG is nonischemic. XR chest negative for any acute findings. Given the fact the patient has sharp pain and history of Ibis-Danlos syndrome, I have ordered CTA for evaluation of dissection. At 10:05pm, I discussed case with Dr. Hanson who tells me that since patient has 2 negative troponins, unremarkable EKG other than the paced rhythm, and is currently chest pain-free, the patient is stable for close outpatient followup. For his stress test result, Dr. Hanson ports that normally for this type of ischemic patterns that patient has on MR scan from 11/20/2021 that medical management is recommended as opposed to acute invasive testing. I have given patient follow up with our case finisher to be seen by our outpatient Cardiology next week with Dr. Hanson. Patient aware of a call from our case finisher to schedule for appointment(s) and verbalizes understanding of the importance of following up. Case signed out to Dr. Norbert Hinson pending reassessment and CTA evaluation for dissection Lab Data : 12/27/21 18:49 12/27/21 18:49 Radiology Impressions Chest X-Ray 12/27/21 18:12 IMPRESSION: No acute radiographic findings. Chest/Abdomen/Pelvis CTA 12/27/21 22:00 IMPRESSION: No pulmonary embolus or aortic dissection. IMPRESSION: No abdominal aortic aneurysm or dissection. Laboratory Results WBC 8.2 10^3/uL (4.0-10.0) 12/27/21 18:49 Corrected WBC Cancelled 12/27/21 17:51 RBC 5.22 10^6/uL (4.1-5.3) 12/27/21 18:49 Hgb 15.6 g/dL (11.7-16.6) 12/27/21 18:49 Hct 43.8 % (42.0-52.0) 12/27/21 18:49 MCV 83.9 fl (80-94) 12/27/21 18:49 MCH 29.9 pg (28.0-34.0) 12/27/21 18:49 MCHC 35.6 g/dL (30.0-36.0) 12/27/21 18:49 RDW 11.8 % (12.1-15.1) L 12/27/21 18:49 Plt Count 200 10^3/cmm (130-400) 12/27/21 18:49 MPV 10.1 fL (7.4-10.4) 12/27/21 18:49 Gran % Cancelled 12/27/21 17:51 Neut % (Auto) 58.6 % 12/27/21 18:49 Lymph % (Auto) 26.9 % 12/27/21 18:49 [place] % (Auto) 9.8 % 12/27/21 18:49 Eos % (Auto) 3.7 % 12/27/21 18:49 Baso % (Auto) 0.6 % 12/27/21 18:49 Neut # (Auto) 4.78 10^3/uL (1.8-7.7) 12/27/21 18:49 Lymph # (Auto) 2.2 10^3/uL (0.8-4.8) 12/27/21 18:49 [place] # (Auto) 0.8 10^3/uL (0.2-0.9) 12/27/21 18:49 Eos # (Auto) 0.3 10^3/uL (0.0-0.8) 12/27/21 18:49 Baso # (Auto) 0.1 10^3/uL (0.0-0.1) 12/27/21 18:49 Absolute Gran (auto) Cancelled 12/27/21 17:51 Nucleated RBC % (auto) 0 % 12/27/21 18:49 Nucleated RBCs # 0.0 /100WBC 12/27/21 18:49 D-Dimer 0.33 ug/mIFEU (0-0.59) 12/27/21 19:29 Sodium 138 mmol/L (136-145) 12/27/21 18:49 Potassium 3.6 mmol/L (3.5-5.1) 12/27/21 18:49 Chloride 100 mmol/L (98-107) 12/27/21 18:49 Carbon Dioxide 29 mmol/L (22-29) 12/27/21 18:49 Anion Gap 12.6 (5-19) 12/27/21 18:49 BUN 16 mg/dL (6-20) 12/27/21 18:49 Creatinine 0.8 mg/dL (0.7-1.2) 12/27/21 18:49 GFR Calculation 111.3 mL/min (90-130) 12/27/21 18:49 Glucose 75 mg/dL (65-115) 12/27/21 18:49 Calculated Osmolality 286 mOsm/kg (285-295) 12/27/21 18:49 Calcium 9.4 mg/dL (8.5-10.5) 12/27/21 18:49 Troponin T Baseline 6 ng/L (0-15) 12/27/21 18:49 Troponin T 120 Minute 6.00 ng/L (0-15) 12/27/21 02:32 Delta Troponin T 0 ABS# (0-10) 12/27/21 02:32 Imaging Data Other Imaging: Radiologist's impression: [address] [address] XRay Report Signed Patient: Ariel Rob Unit #: [id number] : 1985 Age/Sex: 35 / M ADM Date: 12/27/21 Loc: ER Room/Bed: Attending Dr: Ordering Provider/Ordering MD: Serafin Martinez MD Date of Service: 12/27/21 Procedure(s): XR chest 1V portable [id number] Accession Number(s): [id number] Report Number: [id number] PROCEDURE INFORMATION: Exam: XR Chest Exam date and time: 12/27/2021 6:24 PM Age: 35 years old Clinical indication: Chest wall pain; Prior surgery; Surgery date: 6+ months; Surgery type: Pacer, openheart; Additional info: Chest pain TECHNIQUE: Imaging protocol: XR of the chest. Views: 1 view. COMPARISON: CR XR chest 1V portable [id number] 04/18/2021 11:37 PM FINDINGS: Tubes, catheters and devices: Dual lead pacing device with generator over the right hemithorax and leads over the right atrial appendage and right ventricle apex. Lungs: Lungs symmetrically expanded. No consolidation. Pleural spaces: Unremarkable. No pleural effusion. No pneumothorax. Heart/Mediastinum: Unremarkable. No cardiomegaly. Bones/joints: Median sternotomy wires noted. XR/XR chest 1V portable [id number] IMPRESSION: No acute radiographic findings. ? Dictated By: Chaim Prince MD Signed By: Chaim Prince MD Signed Date/Time: 12/27/211949 DD/ 23 Discharge Plan Discharge Patient Disposition: Left Against Medical Advice Clinical Impression: Chest pain Condition: Stable Prescriptions: No Action ibuprofen [IBU-200] 200 mg tablet 200 mg PO Q6H PRN (Reason: Pain) 0RF isosorbide mononitrate 30 mg tablet extended release 24 hr 15 mg PO BID Qty: 30 3RF acetaminophen [Pain Relief Adult] 500 mg/15 mL Liquid 1,000 mg PO Q6H PRN (Reason: HEADACHES) 0RF Discharge Orders: Discharge ED (Routine); Ordered 12/30/21 Ordered By: Jude Hinson Referrals: Favian Koo MD [Primary Care Provider] - Discharge Diet: Advance as tolerated Discharge Activity: Increase activity as tolerated Patient Instructions: Chest Pain (ED) Activity Restrictions/Additional Instructions: Our case finisher will have you follow-up with Dr. Hanson in the next few days. You would be expected to have a phone call with our case finisher who will put you on the schedule. You can expect a call from us in the next 2-3 days. If you don't hear from us, call us back in the emergency room at [phone]. Sign Out Sign Out Data: Patient Sign Out occurred on 12/27/21 at 23:01. Patient's care was discussed, and care was transferred from to Jude Hinson MD. Post-Handoff Eval: Patient care handed off from Dr. Martinez to myself pending completion of CT evalu ation. Prior to completion of CT the patient decided to leave AGAINST MEDICAL ADVICE/before treatment completed. He ambulated from the emergency department. Per review of CT report after patient had left there is no emergent finding that would require immediate patient return. Jude Hinson MD Emergency Medicine Coding Level of Care Code ED Install Technician for Chg Fwd Exam Comprehensive
[2021-12-27] MEDS: iohexol 350 mg/mL 100 mL Btl IV (22:17)
[2021-12-27] MEDS: morphine 4 mg/mL SDV 1 mL 2 MG IVP (22:41)
[2021-12-27] MEDS: metoclopramide 5 mg/mL SDV 2 mL IVP (22:41)
[2021-12-27] MEDS: sodium chloride 0.9% 500 ML IV (22:42)
--- NOTE | 2021-12-27 23:06 | PC.NURSE ---
pt removed monitor and bp cuff, states that the medications did not help and he is ready to go home
== END 2021-12-27 22:39 | disposition left against medical advice (07) ==
PROVIDERS: Emergency Medicine; Emergency Provider Emergency Medicine; PCP Family Medicine
DX: R07.9 Chest pain, unspecified (principal); Z95.0 Presence of cardiac pacemaker; Q79.60 Ehlers-Danlos syndrome, unspecified; I25.2 Old myocardial infarction; Z87.891 Personal history of nicotine dependence; Z53.21 Procedure and treatment not carried out due to patient leaving prior to being seen by health care provider
CPT/HCPCS: 71045; 71275; 74174; 80048; 84484; 85025; 85378; 93005; 96361; 96374; 96375; 99284; J2270; J2765; J7040; Q9967

== ENCOUNTER → 2022-01-18 08:52 | Outpatient (BNVA) | payer BC, MEDICAID, SELFPAY | PROVIDERS: PCP Family Medicine; Visit Provider Internal Medicine | DX: R07.9 Chest pain, unspecified (principal); R53.82 Chronic fatigue, unspecified; I47.1 Supraventricular tachycardia; Q24.9 Congenital malformation of heart, unspecified; M79.606 Pain in leg, unspecified | CPT/HCPCS: 99214; 99215 ==

== ENCOUNTER 2022-01-18 12:25 | Outpatient (CLI) | payer BC, MEDICAID, SELFPAY ==
[2022-01-18 13:22] LABS: Basophils % 0.4 %; Eosinophils # 0.1 10^3/uL (0.0-0.8); Hematocrit 45.3 % (42.0-52.0); Hemoglobin 15.8 g/dL (11.7-16.6); Lymphocytes # 1.7 10^3/uL (0.8-4.8); Lymphocytes % 25.1 %; Mean Corpuscular HGB Conc 34.9 g/dL (30.0-36.0); Mean Corpuscular Hemoglobin 29.5 pg (28.0-34.0); Mean Corpuscular Volume 84.5 fl (80-94); Mean Platelet Volume 10.3 fL (7.4-10.4); Monocytes # 0.6 10^3/uL (0.2-0.9); Monocytes % 7.9 %; Neutrophils # 4.47 10^3/uL (1.8-7.7); Neutrophils % 64.5 %; Nucleated Red Blood Cells % 0 %; Platelet Count 155 10^3/cmm (130-400); Red Blood Count 5.36 10^6/uL (4.1-5.3); Red Cell Distribution Width 11.8 % (12.1-15.1); White Blood Count 6.9 10^3/uL (4.0-10.0)
[2022-01-18 13:33] LABS: INR 1.02 (0.83-1.21); Prothrombin Time (Patient) 13.8 Seconds (12.0-15.1)
[2022-01-18 13:39] LABS: Anion Gap 16.1 (5-19); Blood Urea Nitrogen 15 mg/dL (6-20); Calcium 9.6 mg/dL (8.5-10.5); Carbon Dioxide 24 mmol/L (22-29); Chloride 102 mmol/L (98-107); Glomerular Filtration Rate 96.6 mL/min (90-130); Glucose 101 mg/dL (65-115); Osmolality Calculated 287 mOsm/kg (285-295); Potassium 4.1 mmol/L (3.5-5.1); Sodium 138 mmol/L (136-145)
== END 2022-01-18 12:26 | disposition home or self-care (01) ==
LOC: LAB 12:32
PROVIDERS: PCP Family Medicine; Visit Provider Internal Medicine
DX: R07.9 Chest pain, unspecified (principal); R53.83 Other fatigue; R58 Hemorrhage, not elsewhere classified; Q24.9 Congenital malformation of heart, unspecified; Z79.899 Other long term (current) drug therapy
CPT/HCPCS: 80048; 85025; 85610

== ENCOUNTER 2022-01-25 05:53 | Outpatient (CLI) | payer OTHER, BC, MEDICAID, SELFPAY ==
[2022-01-25] VITALS (14 sets, daily range): BP systolic 114–146; BP diastolic 71–111; PULSE 70–81; RESP 13–21; TEMP 36.9; O2SAT 96–99; BMI 30.2
[2022-01-25] MEDS: diphenhydrAMINE 50 mg Capsule PO (06:55)
--- NOTE | 2022-01-25 07:00 | XACV_ITS ---
Exam Room: 2 Ht: 183 cm Wt: 101 kg BSA: 2.29 m2 Gender: Male : 1985 Any Known Allergies: Other Exam Priority: Routine Procedure(s): Procedure Description: Diagnostic procedure Procedure Description: Left Heart Catheterization Procedure Description: Left ventriculography Procedure Description: Coronary Angiography Diagnostic Cath Status: Elective Diagnostic Findings * No disease noted in the Left Main, Left Anterior Descending, Right, or Circumflex coronary arteries. Large sized OM branches are free of disease.. * Indication: Chest pain/abnormal stress test. Despite of medical therapy patient continues having chest discomfort symptoms. * Coronary angiography shows left dominance. Conclusions 1. No disease noted in the Left Main, Left Anterior Descending, Right, or Circumflex coronary arteries. Large sized OM branches are free of disease.. 2. Normal left ventricular systolic function. Ejection fraction of 50%. Recommendations * Aggressive risk factor modification. * Outpatient cardiology follow-up in 4 weeks. Interventional RX Recommendation: medical therapy and/or counseling Diagnostic RX Recommendation: medical therapy and/or counseling Anticoagulation: Heparin Ventriculography Ejection Fraction: 50.0 % Pressures Phase:Rest AO : 130 / 81 ( 104 ) @ 8:39:00 AM 129 / 82 ( 104 ) @ 8:39:00 AM LV : 143 / -6 / 23 @ 8:37:00 AM 143 / -2 / 26 @ 8:38:00 AM 148 / 0 / 33 @ 8:39:00 AM Valves Phase:DefaultPhase AV : 17.0 @ 12:35:56 PM AV Mean Gradient: 12.0 @ 12:35:56 PM Clinical Evaluation EBL: 5mL-10mL Procedural Details Procedure Consent Obtained. Admit Source: Out Patient. Pre-Procedure Time Out. Identified patient by full name and date of as verbalized by the patient/guarantor. Does the consent match the physician's order: Yes. Accurate & Complete Informed Consent: Yes. Inpatient/Outpatient History & Physical on Chart: Yes. If H&P is completed, is and addenduem needed: No; If yes, is the addendum complete: No. Visualize and Verify Site with Patient/Guarantor: N/A. Relevant Radiology Images available: No. The risks, benefits, and alternatives of sedation and/or procedure were discussed by physician. The patient agrees to continue. Procedure started. [facility] Clinical Fraility Score: 2: Well. 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 Chest Pain Symptom Assessment: Typical Angina Symptoms. Correct patient, site and procedure confirmed by cath team. Current diagnosis: Chest Pain, Abnormal stress test. PERRLA. Strong, equal hand inspector glass or mirror bilaterally. Lungs clear x 5 lobes. IV Site on Arrival: 18 gauge in the right anticubital. IV Fluids: 0.9% NaCl at KVO. 0 mL infused prior to labor gang supervisor. Oxygen started at 2liters/min via nasal canula. Pre Procedural Pulses: bilateral radial was 2+. Pre Procedural Pulses: bilateral posterior tibial was 2+. Pre Procedural Pulses: bilateral dorsalis pedis was 3+. Physician notified. right radial was prepped with chloroprep then draped in the usual sterile fashion. Physician arrived. Baseline sample Acquired. HR: 77 BPM. Physician scrubbed in. Immediate Pre-Procedure Time Out. Correct Patient: Yes; Correct Procedure: Yes; Correct Site: Yes; Correct Patient Position: Yes; Correct Supplies: Yes; Dried Flammable Prep: Yes; Blood Products Available: No;. Lidocaine 1% infiltrated to the right radial. Arterial access obtained. A 5 bengali TIG catheter in over wire. Wire out. Multiple views taken of left coronary artery. Catheter redirected to the RCA. Multiple views taken of right coronary artery. Catheter removed over the standard wire. A 5 bengali Angled Pig catheter in over wire. Wire out. LV gram performed in GRAMAJO @ 10 mL/second for a total of 30 mL. EDP Sample taken: LV 143/-7,23; HR: 70 BPM; SpO2: 100%. EDP Sample taken: LV 143/-3,26; HR: 70 BPM; SpO2: 100%. Pullback taken: LV 148/0,33; AO 130/81(104); Mean: 12mmHg, Peak to Peak: 17mmHg, SEP: 19sec/min; HR: 70 BPM; SpO2: 100%. Catheter removed over the standard wire. Post Procedure: Pulses reassessed and unchanged. PERRLA. Strong, equal hand inspector glass or mirror bilaterally. No VTE prophylaxis required. Medication's Wasted: Lidocaine 1% = 3 mL. Medication's Wasted: Heparin = 1000 units. Medication's Wasted: Nitro = 49.8 mg. Total IV fluids: 35 mL. A TR Band was successful obtaining hemostatsis at the Right Radial artery insertion site. Post-op diagnosis: No significant CAD. Complications: None. Estimated blood loss: 5mL-10mL. Responsiveness - Normal response to verbal stimuli; alert and oriented, PERRLA. Airway - Unaffected, no intervention required; spontaneous ventilation. Circulation: W/N/L, pulses unchanged. Nausea/Vomiting: N/A. Procedure completed. Patient transferred by wheelchair to CPRU. Vital chart was stopped. Access Site Site: Right Radial artery Sheath Size: 6 Fr Hemostasis Method: TR Band Hemostasis Success: Successful Procedure Medications Start: 7:11 AM Stop: 7:11 AM Medication: Fentanyl Amount: 50 mcg Route: I.V. Start: 7:26 AM Stop: 7:26 AM Medication: Fentanyl Amount: 50 mcg Route: I.V. Start: 7:29 AM Stop: 7:29 AM Medication: Nitrogylcerin Amount: 200 mcg Route: I.A. Start: 7:30 AM Stop: 7:30 AM Medication: Fentanyl Amount: 25 mcg Route: I.V. Start: 7:32 AM Stop: 7:32 AM Medication: Heparin Amount: 5000 units Route: I.V. I, the attending physician, have reviewed and verified all procedure medications. Yes, all medications given per verbal order History/Risk Factors Hypertension: Yes Dyslipidemia: No Peripheral Arterial Disease (PAD): No Myocardial Infarction (AK): No Obesity: No Renal Disease: No Tobacco Use: Former Prior Interventions PCI: No CABG: No Valve Surgery: No Report Signatures Finalized by Larry Hanson MD on 02/10/2022 09:40 PM
--- NOTE | 2022-01-25 07:24 | W.PM.OPSUD ---
Surgery/Procedure H&P Update DATE OF PROCEDURE: January 25, 2022 DATE H&P PERFORMED: 01/18/22 H&P UPDATE INFORMATION: I have reviewed H&P completed within last 30 days, I have examined patient prior to procedure and No changes to prior documentation PREOP DIAGNOSIS: Chest pain/ abnormal stress test PRIMARY INDICATION FOR PROCEDURE: Chest pain/abnormal stress test PLANNED PROCEDURE: Operation Date: 01/25/22 07:00 Proposed Procedures p Cardiac Catheterization(Left) - Larry Hanson M.D Possible percutaneous coronary intervention PATIENT REASSESSED PRIOR TO SEDATION, WITH NO CHANGE NOTED: Yes PHYSICAL EXAM: alert, oriented x 3, clear to auscultation bilaterally and regular rate & rhythm AIRWAY EVAL/ANESTHESIA PLAN: ASA III, Monitored Anesthesia, Local Anesthesia, Risks, benefits & alternatives of sedation and/or procedure discussed and Patient agrees to continue as planned
--- NOTE | 2022-01-25 08:06 | PC.NURSE ---
received pt from clam bed laborer post diagnostic [facility]. pt alert and oriented x3. tr band on right wrist with distal pulses palpable. no bruising or hematoma noted. pt complains of no pain. pt educated on restrictions of right wrist and voiced understanding. pt placed on monitor and will be monitored per protocol. plan to dc at 3 hrs of tr band is removed successfully.
== END 2022-01-25 11:07 | disposition home or self-care (01) ==
PROVIDERS: PCP Family Medicine; Visit Provider Internal Medicine
DX: R07.89 Other chest pain (principal); R94.39 Abnormal result of other cardiovascular function study; I11.0 Hypertensive heart disease with heart failure; I50.9 Heart failure, unspecified; Z87.891 Personal history of nicotine dependence; K21.9 Gastro-esophageal reflux disease without esophagitis; Z95.0 Presence of cardiac pacemaker
CPT/HCPCS: 36415; 93452; 93458; 96360; 96361; 99152; 99153; C1769; C1887; C1894; J1644; J2250; J3010; J3490; J7030; Q0163; Q9967

== ENCOUNTER → 2022-02-04 09:33 | Outpatient (BNVA) | payer BC, MEDICAID, SELFPAY | PROVIDERS: PCP Family Medicine; Visit Provider Nurse Practitioner Family | DX: Z09 Encounter for follow-up examination after completed treatment for conditions other than malignant neoplasm (principal); R07.9 Chest pain, unspecified | CPT/HCPCS: 36415; 80048; 99213; 99214 ==

== ENCOUNTER → 2022-03-11 10:59 | Outpatient (BNVA) | payer BC, MEDICAID, SELFPAY | PROVIDERS: PCP Family Medicine; Visit Provider Orthopaedic Surgery Hand Surgery | DX: Z01.818 Encounter for other preprocedural examination (principal); Z20.822 Contact with and (suspected) exposure to COVID-19 | CPT/HCPCS: 87635 ==

== ENCOUNTER → 2022-03-27 08:43 | Outpatient (BNVA) | payer OTHER, BC, MEDICAID, SELFPAY | PROVIDERS: PCP Family Medicine; Referring Provider Family Medicine; Visit Provider Surgery | DX: K21.9 Gastro-esophageal reflux disease without esophagitis (principal) | CPT/HCPCS: 99203 ==

== ENCOUNTER 2022-04-10 14:10 | Outpatient (CLI) | payer OTHER, BC, MEDICAID, SELFPAY ==
--- NOTE | 2022-04-10 13:45 | USCV_ITS ---
Ariel Rob Age: 36 Gender: M : 1985 Exam Date: 04/10/2022 14:30 Ordering Phys: Larry Hanson M.D ([email or web address]) Technologist: Mariel Buck Exam Location: [facility] [place] Indication: leg pain Risk Factors: None Previous Vascular Surgery: None RIGHT LEFT BP: 134.0 / 87.00 BP: 125.0/ 89.00 0 0 Waveform Velocity (cm/s) Velocity (cm/s) Waveform Triphasic 136.7 Iliac Prox 99.4 Triphasic Triphasic 105.6 Iliac Mid 94.8 Triphasic Triphasic 104.1 Iliac Distal 78.3 Triphasic Triphasic 87.0 BRAND DEVELOPMENT MANAGER 69.5 Triphasic Triphasic 93.2 SFA Prox 62.4 Triphasic Triphasic SFA Mid Triphasic 89.4 68.4 Triphasic 60.5 SFA Dist 58.3 Triphasic Triphasic 47.3 POP 25.6 Triphasic Triphasic 44.0 TECHNICAL REPORT WRITER 26.8 Triphasic Triphasic 30.4 DPA 39.5 Triphasic 1.2 CARMINA 1.2 FINDINGS RT TECHNICAL REPORT WRITER 164 mmHg, RT DPA 162 mmHg LT TECHNICAL REPORT WRITER 163mmHg, LT DPA 163 mmHg Resting CARMINA of 1.2 on the low sides Normal arterial Doppler waveforms and Doppler velocities CONCLUSIONS Normal resting ABIs bilaterally Normal arterial Doppler waveforms, bilaterally. No significant arterial obstruction, based on the above findings Dr Man Walker MD [facility] (Electronically Signed) Final Date: 10 April 2022 19:36 S
== END 2022-04-10 14:11 | disposition home or self-care (01) ==
PROVIDERS: PCP Family Medicine; Visit Provider Internal Medicine
DX: M79.606 Pain in leg, unspecified (principal)
CPT/HCPCS: 93925

== ENCOUNTER 2022-04-11 23:00 | Emergency (ER) | payer OTHER, BC, MEDICAID, SELFPAY ==
--- NOTE | 2022-04-11 23:08 | XRR_ITS ---
PROCEDURE INFORMATION: Exam: XR Chest Exam date and time: 04/11/2022 11:16 PM Age: 36 years old Clinical indication: Fever and shortness of breath; Prior surgery; Surgery type: Open heart. Pacer; Patient HX: C/O fever with SOB and fatigue. History of congenital ventricular septal defect. TECHNIQUE: Imaging protocol: Radiologic exam of the chest. Views: 1 view. COMPARISON: CR (CHEST, ) 12/27/2021 6:24 PM FINDINGS: Tubes, catheters and devices: Stable right pacemaker. Lungs: Unremarkable. No consolidation. Pleural spaces: Unremarkable. No pleural effusion. No pneumothorax. Heart/Mediastinum: Unremarkable. No cardiomegaly. Bones/joints: Unremarkable. XR/XR chest 1V portable [id number] IMPRESSION: 1. Stable right pacemaker. 2. No acute findings.
[2022-04-11 23:09] VITALS: BP 135/98; PULSE 108; RESP 20; TEMP 37.5; O2SAT 95; BMI 29.8
--- NOTE | 2022-04-11 23:09 | W.ED.FEVER ---
HPI - Fever General: Chief Complaint: Fever Stated Complaint: Fever Time Seen by Provider: 04/11/22 23:06 History of Present Illness: 36-year-old male patient comes in today with fever and episodes of nausea vomiting diarrhea starting this morning at about 7:00. Patient reports it reminds him when he had COVID-19 last year or with a bout of MRSA due to a wound infection. Patient reports no sores or lesions. Patient appears mildly unwell but not toxic. Patient has a history of SVT, pacemaker insertion, and posttraumatic stress disorder. Associated symptoms: Reports chills, diarrhea, nausea and vomiting; Deny chest pain Review of Systems Const: Reports: fever(s), chills, body aches and fatigue ENMT: Denies: throat pain Card: Denies: chest pain Resp: Denies: dyspnea GI: Reports: nausea, vomiting and diarrhea : Denies: difficulty urinating Musc: Denies: neck pain or back pain PFSH ED PFSH: Medical History AV heart block CHF (congestive heart failure) Congenital heart disease De Quervain's tenosynovitis Ibis-Danlos syndrome Fatigue GERD (gastroesophageal reflux disease) HTN (hypertension) Hx MRSA infection Hx of cardiac pacemaker Hx of septic shock Hx of ventricular septal defect Major depressive disorder, recurrent, moderate Psychiatric care Seizure SVT (supraventricular tachycardia) VSD (ventricular septal defect) Surgical History H/O wrist surgery History of cardiac radiofrequency ablation (RFA) History of open heart surgery S/P appendectomy S/P cardiac pacemaker procedure S/P knee surgery S/P knee surgery Left S/P rotator cuff repair Left 08/26/2014 S/P tonsillectomy S/P vasectomy Family History Father Diabetes Other Cancer Heart disease Hypertension Stroke Social History Smoking and tobacco status: former smoker Quit status (tobacco): has quit using tobacco Year quit tobacco: 12/25/2017 Former quit date comment: 1 PPD for 10 years Second hand smoke exposure: Yes Alcohol intake: never Current gender identity: Male Physical Exam Const: COMMON NORMALS: alert HENMT: MOUTH: Normal oral and palatal mucosa present THROAT: posterior oropharynx abnormal cobblestoning and erythema Neck/C-Spine: COMMON NORMALS: full ROM and no lymphadenopathy Resp: COMMON NORMALS: normal respiratory effort and clear to auscultation bilaterally AUSCULTATION: clear to auscultation bilaterally Cardio: COMMON NORMALS: regular rate and regular rhythm RATE: regular rate RHYTHM: regular rhythm GI: COMMON NORMALS: Soft to palpation and non-tender PALPATION: Yes Soft to palpation Extremity: COMMON NORMALS: normal to inspection Neuro: SENSORIUM/ORIENTATION: Yes alert Skin: COMMON NORMALS: no rashes or lesions noted GENERAL SKIN EXAM: no rashes or lesions noted Course Vital Signs: Vital signs: Vital Signs Temperature 99.5 F 04/11/22 23:09 Pulse Rate 108 H 04/11/22 23:09 Respiratory Rate 20 H 04/11/22 23:09 Blood Pressure 135/98 04/11/22 23:09 Pulse Oximetry 95 04/11/22 23:09 Oxygen Delivery Me thod 04/11/22 23:09 MDM - Fever Medical Decision Making 36-year-old male patient comes in today for complaints of nausea vomiting and body aches with fever starting this morning. Patient reports several episodes of nausea and vomiting with diarrhea. Patient reports feeling very ill and is concerned due to his history of sepsis from an infected pacemaker. Patient is also very talkative during the exam. Lungs are clear to auscultation. No signs of infection are noted to his chest wall or to his previous surgery site of the right radial tunnel procedure. Abdomen soft nontender. Bowel sounds are present. Skin is warm and dry. Vital signs are normal except for some mild elevation in pulse at 108. Differential diagnosis includes viral syndrome, COVID-19, dehydration, malingering. CBC and CMP were unremarkable. Lactic was 1.1. Influenza and COVID test was negative. Urinalysis was unremarkable. Patient was given 1 L of IV fluids along with 4 mg of ondansetron, 1 g of acetaminophen, and 15 mg of Toradol. Patient was encouraged to drink plenty of fluids and treat for gastroenteritis. We did do a secondary COVID PCR test for send out. I did suggest the patient may be COVID-positive but at this time I recommended treatment for gastroenteritis due to his symptoms being more related to such a viral syndrome. Patient reported understanding and agreed to plan. Lab Data : 04/11/22 23:33 04/11/22 23:33 Radiology Impressions Chest X-Ray 04/11/22 23:08 IMPRESSION: 1. Stable right pacemaker. 2. No acute findings. Laboratory Results WBC 7.2 10^3/uL (4.0-10.0) 04/11/22 23: RBC 5.28 10^6/uL (4.1-5.3) 04/11/22 23: Hgb 15.6 g/dL (11.7-16.6) 04/11/22 23:33 Hct 44.1 % (42.0-52.0) 04/11/22 23: MCV 83.5 fl (80-94) 04/11/22 23: MCH 29.5 pg (28.0-34.0) 04/11/22 23: MCHC 35.4 g/dL (30.0-36.0) 04/11/22 23: RDW 12.0 % (12.1-15.1) L 04/11/22 23:33 Plt Count 152 10^3/cmm (130-400) 04/11/22 23:33 MPV 10.4 fL (7.4-10.4) 04/11/22 23:33 Neut % (Auto) 73.6 % 04/11/22 23: Lymph % (Auto) 11.9 % 04/11/22 23: [place] % (Auto) 13.5 % 04/11/22 23: Eos % (Auto) 0.4 % 04/11/22 23: Baso % (Auto) 0.3 % 04/11/22 23:33 Neut # (Auto) 5.33 10^3/uL (1.8-7.7) 04/11/22 23: Lymph # (Auto) 0.9 10^3/uL (0.8-4.8) 04/11/22 23: [place] # (Auto) 1.0 10^3/uL (0.2-0.9) H 04/11/22 23:33 Eos # (Auto) 0.0 10^3/uL (0.0-0.8) 04/11/22 23: Baso # (Auto) 0.0 10^3/uL (0.0-0.1) 04/11/22 23:33 Nucleated RBC % (auto) 0 % 04/11/22 23:33 Nucleated RBCs # 0.0 /100WBC 04/11/22 23:33 Sodium 138 mmol/L (136-145) 04/11/22 23:33 Potassium 3.7 mmol/L (3.5-5.1) 04/11/22 23:33 Chloride 102 mmol/L (98-107) 04/11/22 23:33 Carbon Dioxide 25 mmol/L (22-29) 04/11/22 23:33 Anion Gap 14.7 (5-19) 04/11/22 23:33 BUN 12 mg/dL (6-20) 04/11/22 23:33 Creatinine 0.9 mg/dL (0.7-1.2) 04/11/22 23:33 GFR Calculation 96.6 mL/min (90-130) 04/11/22 23:33 Glucose 115 mg/dL (65-115) 04/11/22 23:33 Calculated Osmolality 287 mOsm/kg (285-295) 04/11/22 23:33 Lactic Acid 1.1 mmol/L (0.5-2.2) 04/11/22 23:33 Calcium 9.5 mg/dL (8.5-10.5) 04/11/22 23:33 Total Bilirubin 0.5 mg/dL (0.15-1.2) 04/11/22 23:33 AST 36 U/L (0-40) 04/11/22 23:33 ALT 26 U/L (0-41) 04/11/22 23:33 Alkaline Phosphatase 92 IU/L (40-130) 04/11/22 23:33 Total Protein 7.5 g/dL (6.6-8.7) 04/11/22 23:33 Albumin 4.6 g/dL (3.5-5.2) 04/11/22 23:33 Globulin 2.9 g/dL (1.3-4.6) 04/11/22 23:33 Urine Color Yellow (Yellow) 04/11/22 23:45 Urine Appearance Clear (CLEAR) 04/11/22 23:45 Urine pH 6.5 (5-7) 04/11/22 23:45 Ur Specific [place] 1.015 (1.005-1.030) 04/11/22 23:45 Urine Protein Neg (Negative) 04/11/22 23:45 Urine Glucose (UA) Norm (Normal) 04/11/22 23:45 Urine Ketones Negative (Negative) 04/11/22 23:45 Urine Blood Neg (Negative) 04/11/22 23:45 Urine Nitrate Negative (Negative) 04/11/22 23:45 Urine Bilirubin Neg (Negative) 04/11/22 23:45 Urine Urobilinogen Norm mg/dL (Negative) 04/11/22 23:45 Ur Leukocyte Esterase Negative (Negative) 04/11/22 23:45 Influenza Type A Ag Negative (Negative) 04/11/22 23:22 Influenza Type B Ag Negative (Negative) 04/11/22 23:22 SARS-CoV-2 Ag (Rapid) Negative (Negative) 04/11/22 23:22 Discharge Plan Discharge Patient Disposition: Home Clinical Impression: Viral syndrome Condition: Stable Prescriptions: New ondansetron 4 mg tablet,disintegrating 4 mg PO Q8H PRN (Reason: nausea and vomiting) Qty: 6 0RF No Action pantoprazole 40 mg tablet,delayed release (DR/EC) 40 mg PO BID isosorbide mononitrate 30 mg tablet extended release 24 hr 15 mg PO BID Qty: 30 3RF acetaminophen [Pain Relief Adult] 500 mg/15 mL Liquid 1,000 mg PO Q6H PRN (Reason: HEADACHES) Discharge Orders: Discharge ED (Routine); Ordered 04/12/22 Ordered By: Arden Whalen Referrals: Favian Koo MD [Primary Care Provider] - Discharge Diet: Clear Liquid Discharge Activity: Increase activity as tolerated Patient Instructions: Gastroenteritis (ED) Activity Restrictions/Additional Instructions: Home and rest. Drink plenty of fluids. Use acetaminophen and/or ibuprofen for pain and fever. Use a ondansetron for nausea and vomiting. Drink sips of fluid frequently to avoid dehydration. Follow-up with primary care for further instruction. Return to ER for worsening symptoms such as uncontrolled fever greater than 100.4, no urination within 12 hours, blood in vomit or stool, or new concerns. Coding Level of Care Code ED Parts Advisor for Chg Fwd Exam Comprehensive
[2022-04-11 23:39] LABS: Basophils % 0.3 %; Eosinophils % 0.4 %; Hematocrit 44.1 % (42.0-52.0); Hemoglobin 15.6 g/dL (11.7-16.6); Lymphocytes # 0.9 10^3/uL (0.8-4.8); Lymphocytes % 11.9 %; Mean Corpuscular HGB Conc 35.4 g/dL (30.0-36.0); Mean Corpuscular Hemoglobin 29.5 pg (28.0-34.0); Mean Corpuscular Volume 83.5 fl (80-94); Mean Platelet Volume 10.4 fL (7.4-10.4); Monocytes % 13.5 %; Neutrophils # 5.33 10^3/uL (1.8-7.7); Neutrophils % 73.6 %; Nucleated Red Blood Cells % 0 %; Platelet Count 152 10^3/cmm (130-400); Red Blood Count 5.28 10^6/uL (4.1-5.3); White Blood Count 7.2 10^3/uL (4.0-10.0)
[2022-04-11 23:53] LABS: Add Urine Microscopic? NO; Charge for UA Resulting for Rev
[2022-04-11 23:56] LABS: Bilirubin Urine Neg (Negative); Blood Urine Neg (Negative); Glucose Urine UA Norm (Normal); Ketones Urine Negative (Negative); Leukocyte Esterase Urine Negative (Negative); Nitrate Urine Negative (Negative); Protein Urine Neg (Negative); Specific Gravity, Urine 1.015 (1.005-1.030); Urine Appearance Clear (CLEAR); Urine Color Yellow (Yellow); Urobilinogen Urine Norm (Negative); pH Urine 6.5 (5-7)
[2022-04-12] LABS: Influenza A by IFA Negative (Negative); Influenza B by IFA Negative (Negative); SARS Covid-2 Antigen Negative (Negative)
[2022-04-12 00:02] LABS: Alanine Aminotransferase 26 U/L (0-41); Albumin Level 4.6 g/dL (3.5-5.2); Alkaline Phosphatase 92 IU/L (40-130); Aspartate Amino Transferase 36 U/L (0-40); Blood Urea Nitrogen 12 mg/dL (6-20); Calcium 9.5 mg/dL (8.5-10.5); Carbon Dioxide 25 mmol/L (22-29); Chloride 102 mmol/L (98-107); Globulin 2.9 g/dL (1.3-4.6); Glomerular Filtration Rate 96.6 mL/min (90-130); Glucose 115 mg/dL (65-115); Lactic Sepsis W/Reflex 1.1 mmol/L (0.5-2.2); Osmolality Calculated 287 mOsm/kg (285-295); Sodium 138 mmol/L (136-145); Total Bilirubin 0.5 mg/dL (0.15-1.2); Total Protein 7.5 g/dL (6.6-8.7)
[2022-04-12] MEDS: acetaminophen 1,000 MG/100 ML PIGGYBACK 400 MG IV (00:10)
[2022-04-12] MEDS: ondansetron 2 mg/ML SDV 2 mL 4 MG IVP (00:10)
[2022-04-12] MEDS: sodium chloride 0.9% 1,000 ML 999 ML IV (00:10)
[2022-04-12 00:29] LABS: Anion Gap 14.7 (5-19); Potassium 3.7 mmol/L (3.5-5.1)
[2022-04-12 01:50] VITALS: BP 129/82; PULSE 85; RESP 16; O2SAT 95
[2022-04-13 13:37] LABS: Quest SARS-CoV-2 RNA DETECTED (NOT DETECTED)
--- NOTE | 2022-04-13 18:28 | PC.NURSE ---
pt notified of postive covid result
== END 2022-04-12 01:50 | disposition home or self-care (01) ==
PROVIDERS: Emergency Provider Nurse Practitioner Family; PCP Family Medicine
DX: U07.1 COVID-19 (principal); B34.9 Viral infection, unspecified; I11.0 Hypertensive heart disease with heart failure; I50.9 Heart failure, unspecified; Z95.0 Presence of cardiac pacemaker; Z87.891 Personal history of nicotine dependence
CPT/HCPCS: 71045; 80053; 81003; 83605; 85025; 87426; 87635; 87804; 96374; 96375; 99284; J2405; J7030

== ENCOUNTER 2022-04-18 08:50 | Day surgery (SDC) | payer OTHER, BC, MEDICAID, SELFPAY ==
[2022-04-17 14:27] VITALS: BMI 29.8
[2022-04-18 09:07] VITALS: BP 142/94; PULSE 74; RESP 16; TEMP 36.3; O2SAT 98
[2022-04-18] MEDS: sodium chloride 0.9% 1,000 ML 30 ML IV (09:29)
--- NOTE | 2022-04-18 09:32 | ANES.PREANE2 ---
Pre-Anesthetic Assessment Height/Weight: Height 1.83 m Weight 99.79 kg Temp Pulse Resp BP Pulse Ox O2 Del Method 97.4 F L 74 16 142/94 98 04/18/22 09:07 04/18/22 09:07 04/18/22 09:07 04/18/22 09:07 04/18/22 09:07 04/18/22 09:07 Preop Diagnosis: Chest pain/ abnormal stress test Operation Date: 04/18/22 10:30 Proposed Procedures p EGD 25487,K21.9(Not Applicable) - Mark Lira DO Familial anesthetic complications: none Was Beta Yudith taken within 24 hours: N/A Was Clonidine taken within 24 hours: N/A Last intake: Intake Last Liquid Date 04/17/22 Last Liquid Time 00:00 Last Solid Date 04/17/22 Last Solid Time 00:00 Social No alcohol and No tobacco Exam alert, oriented x 3, clear to auscultation bilaterally and regular rate & rhythm Airway Submandibular: within normal limits Cervical ROM: within normal limits Mallampati: Class II Dentition: chipped CV/HEM Arrythmia ASD repair, pacemaker GI Gastroesophageal Reflux Disease Neuropsych Anxiety and Seizure Anesthetic Plan ASA status: 3 Anesthesia: MAC Medications/Allergies Home Medications Medication Instructions Recorded Confirmed Last Taken Type acetaminophen 500 mg/15 mL oral 1,000 mg PO Q6H PRN HEADACHES 05/15/20 04/18/22 04/17/22 History liquid (Pain Relief Adult) pantoprazole 40 mg tablet,delayed 40 mg PO BID 02/04/22 04/18/22 04/17/22 History release lamotrigine 100 mg tablet 100 mg PO DAILY 04/17/22 04/18/22 04/17/22 History sucralfate 1 gram tablet 1 g PO QID 04/17/22 04/18/22 04/17/22 History Allergies Allergy/AdvReac Type Severity Reaction Status Date / Time mussels Allergy Severe ALGY-Anaphy Verified 04/17/22 14:23 laxis adhesive Allergy Unknown Unknown Verified 04/17/22 14:23 citric acid Allergy Unknown Unknown Verified 04/17/22 14:23 Benzodiazepines Allergy panic/not Verified 04/17/22 14:23 relaxed Current Medications Generic Name Dose Route Start Last Admin Trade Name Freq PRN Reason Stop Dose Admin Sodium Chloride 1,000 mls @ 30 mls/hr 04/18/22 09:00 04/18/22 09:29 Sodium Chloride 0.9% IV 04/19/22 08:59 30 mls/hr .Q24H LETI Administration PFSH Anesthesia Medical History AV heart block CHF (congestive heart failure) Congenital heart disease De Quervain's tenosynovitis Ibis-Danlos syndrome Fatigue GERD (gastroesophageal reflux disease) HTN (hypertension) Hx MRSA infection Hx of cardiac pacemaker Hx of septic shock Hx of ventricular septal defect Major depressive disorder, recurrent, moderate Psychiatric care Seizure SVT (supraventricular tachycardia) VSD (ventricular septal defect) Surgical History H/O wrist surgery History of cardiac radiofrequency ablation (RFA) History of open heart surgery S/P appendectomy S/P cardiac pacemaker procedure S/P knee surgery S/P knee surgery Left S/P rotator cuff repair Left 08/26/2014 S/P tonsillectomy S/P vasectomy Family History Father Diabetes Other Cancer Heart disease Hypertension Stroke Social History Smoking and tobacco status: former smoker Quit status (tobacco): has quit using tobacco Year quit tobacco: 12/25/2017 Former quit date comment: 1 PPD for 10 years Second hand smoke exposure: Yes Alcohol intake: never Current gender identity: Male Data Anesthesia Cardiac Studies: Echocardiogram 12/13/21 Sestamibi Stress Test (Cardiology) 11/20/21
--- NOTE | 2022-04-18 10:44 | W.PM.OPSUD ---
Surgery/Procedure H&P Update DATE OF PROCEDURE: April 18, 2022 DATE H&P PERFORMED: 03/27/22 CHANGES TO PREVIOUS DOCUMENTATION: none PREOP DIAGNOSIS: Chest pain/ abnormal stress test PLANNED PROCEDURE: Operation Date: 04/18/22 10:30 Proposed Procedures p EGD 09635,K21.9(Not Applicable) - Mark Lira DO
[2022-04-18 10:55] VITALS: BP 126/79; PULSE 72; RESP 16; TEMP 36.3; O2SAT 97
[2022-04-18 11:04] VITALS: BP 138/90; PULSE 98; RESP 18; TEMP 36.7; O2SAT 100
--- NOTE | 2022-04-18 13:41 | ANE.PACU2 ---
Inpatient post-anesthesia follow up: Airway intact: Yes Vital signs: Temperature 98.1 F Pulse Rate 98 Respiratory Rate 18 Blood Pressure 138/90 Pulse Oximetry 100 Oxygen Delivery Me thod Room Air Oxygen Flow Rate Fraction of Inspir ed Oxygen Hydration adequate: Yes Nausea and vomiting: No Pain level: 1 Mental status: Baseline
== END 2022-04-18 11:16 | disposition home or self-care (01) ==
PROVIDERS: PCP Family Medicine; Visit Provider Surgery
PROC: 0DJ08ZZ Inspection of Upper Intestinal Tract, Via Natural or Artificial Opening Endoscopic (ICD-10-PCS; CPT 43235; principal; 2022-04-18 10:30)
DX: K21.9 Gastro-esophageal reflux disease without esophagitis (principal); K29.50 Unspecified chronic gastritis without bleeding; B96.81 Helicobacter pylori [H. pylori] as the cause of diseases classified elsewhere; Z95.0 Presence of cardiac pacemaker; Z86.14 Personal history of Methicillin resistant Staphylococcus aureus infection; Z87.891 Personal history of nicotine dependence
CPT/HCPCS: 43239; 88305; 88342; J2704; J7030

== ENCOUNTER → 2022-04-26 11:10 | Outpatient (BNVA) | payer BC, MEDICAID, SELFPAY | PROVIDERS: PCP Family Medicine; Visit Provider Nurse Practitioner Family | DX: I11.0 Hypertensive heart disease with heart failure (principal); I50.9 Heart failure, unspecified; Z95.0 Presence of cardiac pacemaker; Z87.891 Personal history of nicotine dependence | CPT/HCPCS: 99213; 99214 ==

== ENCOUNTER → 2022-05-02 10:02 | Outpatient (BNVA) | payer BC, MEDICAID, SELFPAY | PROVIDERS: PCP Family Medicine; Visit Provider Surgery | DX: K29.70 Gastritis, unspecified, without bleeding (principal); B96.81 Helicobacter pylori [H. pylori] as the cause of diseases classified elsewhere | CPT/HCPCS: 99212 ==

== ENCOUNTER 2022-05-10 23:20 | Emergency (ER) | payer OTHER, BC, MEDICAID, SELFPAY ==
[2022-05-10 23:24] VITALS: BP 143/87; PULSE 87; RESP 18; TEMP 37; O2SAT 97; BMI 29.8
--- NOTE | 2022-05-11 00:14 | XRR_ITS ---
PROCEDURE INFORMATION: Exam: XR Chest Exam date and time: 05/11/2022 12:30 AM Age: 36 years old Clinical indication: Chest pressure; Prior surgery; Surgery type: Open heart. Pacer. Patient HX: C/O chest pain. History of congenital septal defect. TECHNIQUE: Imaging protocol: Radiologic exam of the chest. Views: 1 view. COMPARISON: CR (CHEST, ) 04/11/2022 11:16 PM FINDINGS: Tubes, catheters and devices: The right-sided ICD is stable in position with the leads terminating in the right atrium and right ventricle. The patient is status post median sternotomy. The sternotomy wires appears grossly intact. Lungs: Low lung volumes and mild bronchovascular crowding. Pleural spaces: Unremarkable. No pleural effusion. No pneumothorax. Heart/Mediastinum: The cardiomediastinal silhouette is stable in appearance. Bones/joints: See Tubes, catheters and devices finding. XR/XR chest 1V portable [id number] IMPRESSION: No acute radiographic findings in the chest.
--- NOTE | 2022-05-11 00:14 | ECG_ITS ---
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 Measurements Intervals [place] Rate: 86 P: 69 MS: 201 QRS: -87 QRSD: 183 T: 89 QT: 432 QTc: 519 Interpretive Statements ELECTRONIC VENTRICULAR PACEMAKER ABNORMAL RHYTHM ECG Compared to ECG 12/27/2021 21:08:38 Atrial-paced complex(es) or rhythm no longer present Electronically Signed On 05-11-2022 9:24:53 CDT by Feliciano Gray M.D. [email or web address]
[2022-05-11 00:40] LABS: Basophils % 0.6 %; Eosinophils # 0.3 10^3/uL (0.0-0.8); Eosinophils % 3.7 %; Hematocrit 44.8 % (42.0-52.0); Hemoglobin 15.5 g/dL (11.7-16.6); Lymphocytes # 2.8 10^3/uL (0.8-4.8); Lymphocytes % 38.1 %; Mean Corpuscular HGB Conc 34.6 g/dL (30.0-36.0); Mean Corpuscular Volume 83.9 fl (80-94); Mean Platelet Volume 10.7 fL (7.4-10.4); Monocytes # 0.7 10^3/uL (0.2-0.9); Monocytes % 9.5 %; Neutrophils # 3.46 10^3/uL (1.8-7.7); Neutrophils % 47.8 %; Nucleated Red Blood Cells % 0 %; Platelet Count 193 10^3/cmm (130-400); Red Blood Count 5.34 10^6/uL (4.1-5.3); White Blood Count 7.2 10^3/uL (4.0-10.0)
--- NOTE | 2022-05-11 00:50 | ED_ITS ---
HPI - Chest Pain General: Chief Complaint: Chest Pain Stated Complaint: Chest pain, weakness Time Seen by Provider: 05/10/22 23:55 History of Present Illness: 36-year-old male patient comes in today for complaints of fatigue. Patient reports for the last 2 days he is just felt more tired than normal. Patient does have a history of pacemaker implantation, stent placed in December, hypertension, h. pylori. And anxiety. Patient appears nontoxic. Patient appears in no pain. Associated symptoms: Deny dyspnea Review of Systems General: Reports: 10 or more systems reviewed and unremarkable except in HPI and below Const: Reports: fatigue and malaise Card: Denies: chest pain Resp: Denies: dyspnea PFS ED PFSH: Medical History (Updated 05/11/22 @ 01:16 by WILLIAM Guerra) AV heart block CHF (congestive heart failure) Congenital heart disease De Quervain's tenosynovitis Ibis-Danlos syndrome Fatigue GERD (gastroesophageal reflux disease) Helicobacter pylori gastritis HTN (hypertension) Hx MRSA infection Hx of cardiac pacemaker Hx of septic shock Hx of ventricular septal defect Major depressive disorder, recurrent, moderate Psychiatric care Seizure SVT (supraventricular tachycardia) VSD (ventricular septal defect) Surgical History H/O wrist surgery History of cardiac radiofrequency ablation (RFA) History of open heart surgery S/P appendectomy S/P cardiac pacemaker procedure S/P knee surgery S/P knee surgery Left S/P rotator cuff repair Left 08/26/2014 S/P tonsillectomy S/P vasectomy Family History Father Diabetes Other Cancer Heart disease Hypertension Stroke Social History Smoking and tobacco status: former smoker Quit status (tobacco): has quit using tobacco Year quit tobacco: 12/25/2017 Former quit date comment: 1 PPD for 10 years Second hand smoke exposure: Yes Alcohol intake: never Current gender identity: Male Physical Exam Const: COMMON NORMALS: alert HENMT: COMMON NORMALS: normocephalic HEAD & SCALP: normocephalic Neck/C-Spine: COMMON NORMALS: full ROM Resp: COMMON NORMALS: normal respiratory effort and clear to auscultation bilaterally AUSCULTATION: clear to auscultation bilaterally Cardio: COMMON NORMALS: regular rate and regular rhythm RATE: regular rate RHYTHM: regular rhythm Extremity: COMMON NORMALS: no pedal edema Neuro: SENSORIUM/ORIENTATION: Yes alert Skin: COMMON NORMALS: turgor normal GENERAL SKIN EXAM: turgor normal Course Vital Signs: Vital signs: Vital Signs Temperature 98.6 F 05/10/22 23:24 Pulse Rate 87 05/10/22 23:24 Respiratory Rate 18 05/10/22 23:24 Blood Pressure 143/87 05/10/22 23:24 Pulse Oximetry 97 05/10/22 23:24 Oxygen Delivery Me thod 05/10/22 23:24 MDM - Chest Pain Medical Decision Making 36-year-old male patient comes in today for complaints of fatigue. Patient is mainly concerned due to his history of heart disease. On exam lungs are clear to auscultation. Heart rates regular. Abdomen soft nontender. No edema is noted in extremities. Vital signs are normal. Differential diagnosis includes but not limited to CHF, anxiety, depression, coronary artery disease, ACS. Laboratory values were unremarkable. Chest x-ray was normal. Reviewed exam with patient recommended follow-up with primary care for further instruction and evaluation. Suspect patient may have some residual fatigue from his recent bout with COVID at the end of March. Lab Data : 05/10/22 23:40 05/10/22 23:40 Laboratory Results WBC 7.2 10^3/uL (4.0-10.0) 05/10/22 23:40 RBC 5.34 10^6/uL (4.1-5.3) H 05/10/22 23:40 Hgb 15.5 g/dL (11.7-16.6) 05/10/22 23:40 Hct 44.8 % (42.0-52.0) 05/10/22 23:40 MCV 83.9 fl (80-94) 05/10/22 23:40 MCH 29.0 pg (28.0-34.0) 05/10/22 23:40 MCHC 34.6 g/dL (30.0-36.0) 05/10/22 23:40 RDW 12.0 % (12.1-15.1) L 05/10/22 23:40 Plt Count 193 10^3/cmm (130-400) 05/10/22 23:40 MPV 10.7 fL (7.4-10.4) H 05/10/22 23:40 Neut % (Auto) 47.8 % 05/10/22 23:40 Lymph % (Auto) 38.1 % 05/10/22 23:40 [place] % (Auto) 9.5 % 05/10/22 23:40 Eos % (Auto) 3.7 % 05/10/22 23:40 Baso % (Auto) 0.6 % 05/10/22 23:40 Neut # (Auto) 3.46 10^3/uL (1.8-7.7) 05/10/22 23:40 Lymph # (Auto) 2.8 10^3/uL (0.8-4.8) 05/10/22 23:40 [place] # (Auto) 0.7 10^3/uL (0.2-0.9) 05/10/22 23:40 Eos # (Auto) 0.3 10^3/uL (0.0-0.8) 05/10/22 23:40 Baso # (Auto) 0.0 10^3/uL (0.0-0.1) 05/10/22 23:40 Nucleated RBC % (auto) 0 % 05/10/22:40 Nucleated RBCs # 0.0 /100WBC 05/10/22 23:40 Sodium 141 mmol/L (136-145) 05/10/22 23:40 Potassium 3.9 mmol/L (3.5-5.1) 05/10/22 23:40 Chloride 104 mmol/L (98-107) 05/10/22 23:40 Carbon Dioxide 24 mmol/L (22-29) 05/10/22 23:40 Anion Gap 16.9 (5-19) 05/10/22 23:40 BUN 14 mg/dL (6-20) 05/10/22 23:40 Creatinine 0.8 mg/dL (0.7-1.2) 05/10/22 23:40 GFR Calculation 110.7 mL/min (90-130) 05/10/22 23:40 Glucose 117 mg/dL (65-115) H 05/10/22 23:40 Calculated Osmolality 294 mOsm/kg (285-295) 05/10/22 23:40 Calcium 9.5 mg/dL (8.5-10.5) 05/10/22 23:40 Total Bilirubin 0.3 mg/dL (0.15-1.2) 05/10/22 23:40 AST 37 U/L (0-40) 05/10/22 23:40 ALT 31 U/L (0-41) 05/10/22 23:40 Alkaline Phosphatase 105 U/L (40-130) 05/10/22 23:40 Troponin T Baseline 6 ng/L (0-15) 05/10/22 23:40 NT-Pro-B Natriuret Pep 51 pg/mL (0-125) 05/10/22 23:40 Total Protein 7.3 g/dL (6.6-8.7) 05/10/22 23:40 Albumin 4.6 g/dL (3.5-5.2) 05/10/22 23:40 Globulin 2.7 g/dL (1.3-4.6) 05/10/22 23:40 Discharge Plan Discharge Patient Disposition: Home Clinical Impression: Fatigue Qualifiers: Fatigue type: unspecified Qualified Code(s): R53.83 - Other fatigue CAD (coronary artery disease) Qualifiers: Coronary Disease-Associated Artery/Lesion type: unspecified vessel or lesion type [place] vs. transplanted heart: [place] heart Associated angina: unspecified whether angina present Qualified Code(s): I25.10 - Atherosclerotic heart disease of [place] coronary artery without angina pectoris Condition: Stable Prescriptions: No Action aripiprazole [Abilify] 10 mg tablet 10 mg PO DAILY amlodipine 5 mg tablet 5 mg PO DAILY Qty: 90 3RF amoxicillin 500 mg tablet 1,000 mg PO BID 14 Days Qty: 56 0RF clarithromycin 500 mg tablet 500 mg PO BID 14 Days Qty: 28 0RF pantoprazole 40 mg tablet,delayed release (DR/EC) 40 mg PO BID 14 Days Qty: 28 0RF omeprazole 40 mg capsule,delayed release(DR/EC) 40 mg PO BID 14 Days Qty: 28 0RF acetaminophen [Pain Relief Adult] 500 mg/15 mL Liquid 1,000 mg PO Q6H PRN (Reason: HEADACHES) sucralfate 1 gram tablet 1 g PO QID lamotrigine 100 mg tablet 100 mg PO DAILY Discharge Orders: Discharge ED (Routine); Ordered 05/11/22 Ordered By: Arden Whalen Referrals: Favain Koo MD [Primary Care Provider] - Discharge Diet: Usual diet Discharge Activity: Increase activity as tolerated Patient Instructions: Fatigue (ED) Activity Restrictions/Additional Instructions: Home and rest. Continue with routine medications as directed. Follow-up with primary care for further instruction. Return to ER for new concerns. Coding Level of Care Code ED Alliance Consultant for Chg Fwd Exam Detailed
[2022-05-11 00:53] LABS: Troponin(5th) Baseline 6 ng/L (0-15)
[2022-05-11 01:00] LABS: Alanine Aminotransferase 31 U/L (0-41); Albumin Level 4.6 g/dL (3.5-5.2); Alkaline Phosphatase 105 U/L (40-130); Anion Gap 16.9 (5-19); Aspartate Amino Transferase 37 U/L (0-40); Blood Urea Nitrogen 14 mg/dL (6-20); Calcium 9.5 mg/dL (8.5-10.5); Carbon Dioxide 24 mmol/L (22-29); Chloride 104 mmol/L (98-107); Globulin 2.7 g/dL (1.3-4.6); Glomerular Filtration Rate 110.7 mL/min (90-130); Glucose 117 mg/dL (65-115); NT Pro B Type Natriuretic Pept 51 pg/mL (0-125); Osmolality Calculated 294 mOsm/kg (285-295); Potassium 3.9 mmol/L (3.5-5.1); Sodium 141 mmol/L (136-145); Total Bilirubin 0.3 mg/dL (0.15-1.2); Total Protein 7.3 g/dL (6.6-8.7)
[2022-05-11 01:29] VITALS: BP 129/80; PULSE 86; RESP 14; O2SAT 97
== END 2022-05-11 01:30 | disposition home or self-care (01) ==
PROVIDERS: Emergency Provider Nurse Practitioner Family; PCP Family Medicine
DX: R53.83 Other fatigue (principal); I25.10 Atherosclerotic heart disease of native coronary artery without angina pectoris; Z87.891 Personal history of nicotine dependence; I11.0 Hypertensive heart disease with heart failure; I50.9 Heart failure, unspecified; Z95.0 Presence of cardiac pacemaker
CPT/HCPCS: 71045; 80053; 83880; 84484; 85025; 93005; 99285

== ENCOUNTER 2022-06-08 15:03 | Emergency (ER) | payer OTHER, BC, MEDICAID, SELFPAY ==
[2022-06-08] VITALS (7 sets, daily range): BP systolic 114–149; BP diastolic 59–88; PULSE 70–82; RESP 14–20; TEMP 36.5–36.7; O2SAT 95–98; BMI 29.8
--- NOTE | 2022-06-08 15:15 | ECG_ITS ---
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 Measurements Intervals [place] Rate: 83 P: 39 [place]: 218 QRS: -81 QRSD: 172 T: 82 QT: 412 QTc: 487 Interpretive Statements ELECTRONIC VENTRICULAR PACEMAKER A sensed V paced rhythm ABNORMAL RHYTHM ECG INTERPRETATION BASED ON A DEFAULT AGE OF 40 YEARS Compared to ECG 05/10/2022 23:29:26 No significant changes Electronically Signed On 06-08-2022 18:13:43 CDT by Man Walker M.D. [id number]
--- NOTE | 2022-06-08 15:48 | ED_ITS ---
HPI - Chest Pain General: Chief Complaint: Chest Pain Stated Complaint: Chest pain and numbiness on fingers and toes Time Seen by Provider: 06/08/22 15:45 History of Present Illness: Mr. Rob is a 36-year-old gentleman with history of hypertension, hyperlipidemia, congenital heart disease, s/p pacemaker placement presenting to the ER for generalized fatigue. He reports symptom o nset 3 to 4 weeks ago and has been near constant and worsening since that time. He describes profound fatigue with any exertion or activity. He additionally endorses some chest pain that is different from his typical chest pain and higher up on the left anterior chest. He has noticed some liquid stools. He has seen primary care without clear explanation identified. No other specific changes in health, exacerbating, or alleviating factors identified. Onset (ago): week(s) Timing of current episode: constant Severity: severe Review of Systems General: Reports: 10 or more systems reviewed and unremarkable except in HPI and below PFSH ED PFSH: Medical History AV heart block CHF (congestive heart failure) Congenital heart disease De Quervain's tenosynovitis Ibis-Danlos syndrome Fatigue GERD (gastroesophageal reflux disease) Helicobacter pylori gastritis HTN (hypertension) Hx MRSA infection Hx of cardiac pacemaker Hx of septic shock Hx of ventricular septal defect Major depressive disorder, recurrent, moderate Psychiatric care Seizure SVT (supraventricular tachycardia) VSD (ventricular septal defect) Surgical History H/O wrist surgery History of cardiac radiofrequency ablation (RFA) History of open heart surgery S/P appendectomy S/P cardiac pacemaker procedure S/P knee surgery S/P knee surgery Left S/P rotator cuff repair Left 08/26/2014 S/P tonsillectomy S/P vasectomy Family History Father Diabetes Other Cancer Heart disease Hypertension Stroke Social History Smoking and tobacco status: former smoker Quit status (tobacco): has quit using tobacco Year quit tobacco: 12/25/2017 Former quit date comment: 1 PPD for 10 years Second hand smoke exposure: Yes Alcohol intake: never Current gender identity: Male Physical Exam Const: COMMON NORMALS: patient oriented x3 and alert GENERAL APPEARANCE: cooperative and well developed HENMT: COMMON NORMALS: normocephalic and atraumatic HEAD & SCALP: normocephalic and atraumatic THROAT: posterior oropharynx normal Eye: COMMON NORMALS: conjunctivae normal CONJUNCTIVA: Yes conjunctivae normal SCLERA: sclerae normal Neck/C-Spine: COMMON NORMALS: supple GENERAL: Yes trachea midline Resp: COMMON NORMALS: normal respiratory effort and clear to auscultation bilaterally EFFORT & INSPECTION: Yes able to speak in complete sentences AUSCULTATION: clear to auscultation bilaterally Cardio: COMMON NORMALS: regular rate and regular rhythm RATE: regular rate RHYTHM: regular rhythm GI: COMMON NORMALS: Soft to palpation PALPATION: Yes Soft to palpation and No Tenderness to palpation present (GI) Extremity: GENERAL: Yes normal exam except as noted and No edema Neuro: COMMON NORMALS: patient oriented x3, CN's II-XII intact bilaterally, moves all extremities, no focal motor deficits and no sensory deficits noted SENSORIUM/ORIENTATION: Yes alert and No Orientation impaired Psych: COMMON NORMALS: mental status grossly normal and Normal thought process present THOUGHT PROCESS: Normal thought process present Course Vital Signs: Vital signs: Vital Signs Temperature 98.1 F 06/08/22 19:20 Pulse Rate 74 06/08/22 19:20 Respiratory Rate 18 06/08/22 19:20 Blood Pressure 142/87 06/08/22 19:20 Pulse Oximetry 98 06/08/22 19:20 Oxygen Delivery Me thod 06/08/22 18:00 MDM - Chest Pain Medical Decision Making 36-year-old gentleman with complex past medical history presenting with chest pain and paresthesias. No focal exam findings on neurologic exam. EKG shows paced rhythm. Unremarkable hematologic and metabolic panels. Delta troponin is negative. No evidence of UTI. Entero/rhinovirus positive.. Chest x-ray with no lobar consolidation or pneumothorax. Patient mildly improved with IV fluids. Satisfactory for outpatient management with strict follow-up and return precautions discussed. Medical Records I reviewed the patient's medical records. Lab Data I reviewed the patient's lab results. : 06/08/22 15:55 06/08/22 15:55 Radiology Impressions Chest X-Ray 06/08/22 15:55 IMPRESSION: 1. Negative for infiltrate. 2. Cardiomegaly. Laboratory Results WBC 7.5 10^3/uL (4.0-10.0) 06/08/22 15:55 RBC 5.23 10^6/uL (4.1-5.3) 06/08/22 15:55 Hgb 15.6 g/dL (11.7-16.6) 06/08/22 15:55 Hct 45.0 % (42.0-52.0) 06/08/22 15:55 MCV 86.0 fl (80-94) 06/08/22 15:55 MCH 29.8 pg (28.0-34.0) 06/08/22 15:55 MCHC 34.7 g/dL (30.0-36.0) 06/08/22 15:55 RDW 13.0 % (12.1-15.1) 06/08/22 15:55 Plt Count 187 10^3/cmm (130-400) 06/08/22 15:55 MPV 10.1 fL (7.4-10.4) 06/08/22 15:55 Neut % (Auto) 62.1 % 06/08/22 15:55 Lymph % (Auto) 25.5 % 06/08/22 15:55 Hood % (Auto) 9.5 % 06/08/22 15:55 Eos % (Auto) 2.1 % 06/08/22 15:55 Baso % (Auto) 0.4 % 06/08/22 15:55 Neut # (Auto) 4.63 10^3/uL (1.8-7.7) 06/08/22 15:55 Lymph # (Auto) 1.9 10^3/uL (0.8-4.8) 06/08/22 15:55 Hood # (Auto) 0.7 10^3/uL (0.2-0.9) 06/08/22 15:55 Eos # (Auto) 0.2 10^3/uL (0.0-0.8) 06/08/22 15:55 Baso # (Auto) 0.0 10^3/uL (0.0-0.1) 06/08/22 15:55 Nucleated RBC % (auto) 0 % 06/08/22 15:55 Nucleated RBCs # 0.0 /100WBC 06/08/22 15:55 Sodium 139 mmol/L (136-145) 06/08/22 15:55 Potassium 3.8 mmol/L (3.5-5.1) 06/08/22 15:55 Chloride 102 mmol/L (98-107) 06/08/22 15:55 Carbon Dioxide 26 mmol/L (22-29) 06/08/22 15:55 Anion Gap 14.8 (5-19) 06/08/22 15:55 BUN 14 mg/dL (6-20) 06/08/22 15:55 Creatinine 0.8 mg/dL (0.7-1.2) 06/08/22 15:55 GFR Calculation 110.7 mL/min (90-130) 06/08/22 15:55 Glucose 84 mg/dL (65-115) 06/08/22 15:55 Calculated Osmolality 288 mOsm/kg (285-295) 06/08/22 15:55 Calcium 9.7 mg/dL (8.5-10.5) 06/08/22 15:55 Total Bilirubin 0.4 mg/dL (0.15-1.2) 06/08/22 15:55 AST 37 U/L (0-40) 06/08/22 15:55 ALT 30 U/L (0-41) 06/08/22 15:55 Alkaline Phosphatase 94 U/L (40-130) 06/08/22 15:55 Troponin T Baseline 6 ng/L (0-15) 06/08/22 15:55 Troponin T 120 Minute 6.00 ng/L (0-15) 06/08/22 18:07 Delta Troponin T 0 ABS# (0-10) 06/08/22 18:07 NT-Pro-B Natriuret Pep 60 pg/mL (0-125) 06/08/22 15:55 Total Protein 7.3 g/dL (6.6-8.7) 06/08/22 15:55 Albumin 4.6 g/dL (3.5-5.2) 06/08/22 15:55 Globulin 2.7 g/dL (1.3-4.6) 06/08/22 15:55 TSH 0.82 uIU/mL (0.27-4.20) 06/08/22 15:55 Urine Color Yellow (Yellow) 06/08/22 17:54 Urine Appearance Clear (CLEAR) 06/08/22 17:54 Urine pH 6.5 (5-7) 06/08/22 17:54 Ur Specific [place] 1.015 (1.005-1.030) 06/08/22 17:54 Urine Protein Neg (Negative) 06/08/22 17:54 Urine Glucose (UA) Norm (Normal) 06/08/22 17:54 Urine Ketones Negative (Negative) 06/08/22 17:54 Urine Blood Neg (Negative) 06/08/22 17:54 Urine Nitrate Negative (Negative) 06/08/22 17:54 Urine Bilirubin Neg (Negative) 06/08/22 17:54 Urine Urobilinogen 1 mg/dL (Negative) H 06/08/22 17:54 Ur Leukocyte Esterase Negative (Negative) 06/08/22 17:54 Coronavirus 229E (PCR) Not detected (NOT DETECT) 06/08/22 16:30 Human Metapneumovir PCR Not detected (NOT DETECT) 06/08/22 18:43 Entero/Rhino (PCR) Detected (NOT DETECT) A 06/08/22 18:43 SARS-CoV-2 (PCR) Not detected (NOT DETECT) 06/08/22 16:30 Discharge Plan Discharge Patient Disposition: Home Clinical Impression: Rhinovirus infection Condition: Stable Prescriptions: New ondansetron 4 mg tablet,disintegrating 4 mg PO Q8H PRN (Reason: nausea and vomiting) Qty: 15 0RF No Action aripiprazole [Abilify] 10 mg tablet 10 mg PO DAILY amlodipine 5 mg tablet 5 mg PO DAILY Qty: 90 3RF amoxicillin 500 mg tablet 1,000 mg PO BID 14 Days Qty: 56 0RF clarithromycin 500 mg tablet 500 mg PO BID 14 Days Qty: 28 0RF pantoprazole 40 mg tablet,delayed release (DR/EC) 40 mg PO BID 14 Days Qty: 28 0RF omeprazole 40 mg capsule,delayed release(DR/EC) 40 mg PO BID 14 Days Qty: 28 0RF acetaminophen [Pain Relief Adult] 500 mg/15 mL Liquid 1,000 mg PO Q6H PRN (Reason: HEADACHES) sucralfate 1 gram tablet 1 g PO QID lamotrigine 100 mg tablet 100 mg PO DAILY Discharge Orders: Discharge ED (Routine); Ordered 06/08/22 Ordered By: Jude Hinson Referrals: Favian Koo MD [Primary Care Provider] - Discharge Diet: Usual diet Discharge Activity: Increase activity as tolerated Patient Instructions: Viral Syndrome (ED) Activity Restrictions/Additional Instructions: Thank you for visiting the emergency department. You were seen and evaluated for generalized symptoms. The exact cause of your symptoms is unclear. The only abnormality identified on ED evaluation was rhinovirus which is a common viral illness. Please follow-up with your primary care provider. Return to the emergency department for worsening symptoms or anything else that you are concerned about a feel needs emergency department evaluation. 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
--- NOTE | 2022-06-08 15:55 | XRR_ITS ---
PROCEDURE INFORMATION: Exam: XR Chest Exam date and time: 06/08/2022 4:08 PM Age: 36 years old Clinical indication: Other: Chest pain and weakness; Additional info: Weakness, cp TECHNIQUE: Imaging protocol: Radiologic exam of the chest. Views: 1 view. COMPARISON: CR (CHEST, ) 05/11/2022 12:30 AM FINDINGS: Tubes, catheters and devices: Pacemaker. Lungs: Unremarkable. No consolidation. Pleural spaces: Unremarkable. No pleural effusion. No pneumothorax. Heart/Mediastinum: Cardiomegaly. Bones/joints: Sternotomy wires. XR/XR chest 1V portable [id number] IMPRESSION: 1. Negative for infiltrate. 2. Cardiomegaly.
[2022-06-08 16:10] LABS: Basophils % 0.4 %; Eosinophils # 0.2 10^3/uL (0.0-0.8); Eosinophils % 2.1 %; Hemoglobin 15.6 g/dL (11.7-16.6); Lymphocytes # 1.9 10^3/uL (0.8-4.8); Lymphocytes % 25.5 %; Mean Corpuscular HGB Conc 34.7 g/dL (30.0-36.0); Mean Corpuscular Hemoglobin 29.8 pg (28.0-34.0); Mean Platelet Volume 10.1 fL (7.4-10.4); Monocytes # 0.7 10^3/uL (0.2-0.9); Monocytes % 9.5 %; Neutrophils # 4.63 10^3/uL (1.8-7.7); Neutrophils % 62.1 %; Nucleated Red Blood Cells % 0 %; Platelet Count 187 10^3/cmm (130-400); Red Blood Count 5.23 10^6/uL (4.1-5.3); White Blood Count 7.5 10^3/uL (4.0-10.0)
[2022-06-08] MEDS: sodium chloride 0.9% 1,000 ML 999 ML IV (16:27)
[2022-06-08 16:39] LABS: Troponin(5th) Baseline 6 ng/L (0-15)
[2022-06-08 16:46] LABS: Alanine Aminotransferase 30 U/L (0-41); Albumin Level 4.6 g/dL (3.5-5.2); Alkaline Phosphatase 94 U/L (40-130); Aspartate Amino Transferase 37 U/L (0-40); Blood Urea Nitrogen 14 mg/dL (6-20); Calcium 9.7 mg/dL (8.5-10.5); Carbon Dioxide 26 mmol/L (22-29); Chloride 102 mmol/L (98-107); Globulin 2.7 g/dL (1.3-4.6); Glomerular Filtration Rate 110.7 mL/min (90-130); Glucose 84 mg/dL (65-115); NT Pro B Type Natriuretic Pept 60 pg/mL (0-125); Osmolality Calculated 288 mOsm/kg (285-295); Sodium 139 mmol/L (136-145); Thyroid Stimulating Hormone 0.82 uIU/mL (0.27-4.20); Total Bilirubin 0.4 mg/dL (0.15-1.2); Total Protein 7.3 g/dL (6.6-8.7)
[2022-06-08 17:19] LABS: Anion Gap 14.8 (5-19); Potassium 3.8 mmol/L (3.5-5.1)
--- NOTE | 2022-06-08 17:55 | ECG_ITS ---
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
[2022-06-08 18:01] LABS: Add Urine Microscopic? NO; Charge for UA Resulting for Rev
[2022-06-08 18:02] LABS: Urine Appearance Clear (CLEAR); Urine Color Yellow (Yellow); pH Urine 6.5 (5-7)
[2022-06-08 18:03] LABS: Bilirubin Urine Neg (Negative); Blood Urine Neg (Negative); Glucose Urine UA Norm (Normal); Ketones Urine Negative (Negative); Leukocyte Esterase Urine Negative (Negative); Nitrate Urine Negative (Negative); Protein Urine Neg (Negative); Specific Gravity, Urine 1.015 (1.005-1.030); Urobilinogen Urine 1 mg/dL (Negative)
[2022-06-08 18:28] LABS: Adenovirus Not Detected (NOT DETECT); Chlamydia Pneumoniae Not Detected (NOT DETECT); Coronavirus 229E,HKU1,NL63,OC4 Not Detected (NOT DETECT); Human Metapneumovirus Not Detected (NOT DETECT); Human Rhinovirus/Enterovirus Detected (NOT DETECT); Influenza A Not Detected (NOT DETECT); Influenza A H1 Not Detected (NOT DETECT); Influenza A H1-2009 Not Detected (NOT DETECT); Influenza A H3 Not Detected (NOT DETECT); Influenza B Not Detected (NOT DETECT); Mycoplasma Pneumoniae Not Detected (NOT DETECT); Parainfluenza Virus Type 1 Not Detected (NOT DETECT); Parainfluenza Virus Type 2 Not Detected (NOT DETECT); Parainfluenza Virus Type 3 Not Detected (NOT DETECT); Parainfluenza Virus Type 4 Not Detected (NOT DETECT); Respiratory Syncytial Virus A Not Detected (NOT DETECT); Respiratory Syncytial Virus B Not Detected (NOT DETECT); SARS-COV-2 Not Detected (NOT DETECT)
[2022-06-08 18:44] LABS: Human Metapneumovirus Not Detected (NOT DETECT); Human Rhinovirus/Enterovirus Detected (NOT DETECT); Results from Genmark
--- NOTE | 2022-06-08 18:58 | PC.NURSE ---
report given to JOHN Eubanks
--- NOTE | 2022-06-08 18:58 | PC.NURSE ---
pt resting in bed, updated on plan of care.
[2022-06-08 19:08] LABS: Troponin 5 2HR Delta 0 ABS# (0-10)
== END 2022-06-08 19:22 | disposition home or self-care (01) ==
PROVIDERS: Emergency Provider Emergency Medicine; PCP Family Medicine
DX: B34.8 Other viral infections of unspecified site (principal); Z20.822 Contact with and (suspected) exposure to COVID-19; I11.0 Hypertensive heart disease with heart failure; I50.9 Heart failure, unspecified; Z95.0 Presence of cardiac pacemaker
CPT/HCPCS: 36415; 71045; 80053; 81003; 83880; 84443; 84484; 85025; 87635; 87801; 93005; 96360; 99285; J7030

== ENCOUNTER 2022-11-05 22:13 | Emergency (ER) | payer BC, MEDICAID, SELFPAY ==
--- NOTE | 2022-11-05 22:16 | XRR_ITS ---
PROCEDURE INFORMATION: Exam: XR Chest Exam date and time: 11/05/2022 11:12 PM Age: 36 years old Clinical indication: Shortness of breath; Prior surgery; Surgery date: 6+ months; Surgery type: Heart surgery at 13 months old. . Pacemaker placement 12/2016. Pacemaker removal 03/01. RT side pacemaker 09/01. Lt shoulder 2013; Additional info: SOB TECHNIQUE: Imaging protocol: Radiologic exam of the chest. Views: 1 view. COMPARISON: CR (CHEST, ) 06/08/2022 4:08 PM FINDINGS: Tubes, catheters and devices: Pacemaker. Lungs: Unremarkable. No consolidation. Pleural spaces: Unremarkable. No pleural effusion. No pneumothorax. Heart/Mediastinum: Unremarkable. No cardiomegaly. Bones/joints: Unremarkable. XR/XR chest 1V portable [id number] IMPRESSION: Lungs are clear.
[2022-11-05 22:27] VITALS: BP 122/82; PULSE 110; RESP 20; TEMP 38.2; O2SAT 96; BMI 31.1
[2022-11-05 22:56] VITALS: O2SAT 97
--- NOTE | 2022-11-05 23:06 | ED_ITS ---
HPI - COVID General: Chief Complaint: COVID symptoms Stated Complaint: SOB\Coughing\Fever\Weak Time Seen by Provider: 11/05/22 22:40 History of Present Illness: Patient is a 36-year-old male who comes to the ED with upper respiratory viral symptoms. Symptoms started yesterday. Endorses having fever, body aches, chills, nausea, nasal congestion and drainage and dry cough. He took a dose of Tylenol about 2 hours ago. He is able to keep p.o. food and fluids down. Denies any episodes of emesis. denies any known sick contacts. COVID 19 common symptoms: positive fever(s), chills, non-productive cough, fatigue, body aches, nasal congestion and nausea; negative productive cough, dyspnea, headache(s), throat pain, vomiting or diarrhea COVID 19 other sytmptoms: negative chest pain COVID Results: SARS-CoV-2 Antigen (Rapid) negative (Negative) 11/05/22 22:51 SARS-CoV-2 RNA (RT-PCR) Detected (NOT DETECTED) A 04/12/22 00: 19 SARS-CoV-2 (PCR) Not detected (NOT DETECT) 06/08/22 16:30 Coronavirus Type 229E (PCR) Not detected (NOT DETECT) 06/08/22 16:30 SARS Virus RNA (PCR) See comment 12/20/19 12:06 Review of Systems Const: Reports: fever(s), chills, body aches and fatigue Eyes: Denies: change in vision or eye discomfort ENMT: Reports: nasal discharge and nasal congestion; Denies: throat pain or odynophagia Card: Denies: chest pain, palpitations, edema, swelling of feet/ankles, dyspnea on exertion or orthopnea Resp: Reports: non-productive cough; Denies: dyspnea or productive cough GI: Reports: nausea; Denies: abdominal pain, vomiting, diarrhea, constipation or hematochezia : Denies: flank pain, difficulty urinating, dysuria or hematuria Musc: Denies: neck pain, back pain or extremity swelling Skin/Breast: Denies: rash or new lesions Neuro: Denies: headache(s), numbness in extremities or weakness in extremities PFS ED PFSH: Medical History Acute pharyngitis AV heart block CHF (congestive heart failure) Congenital heart disease De Quervain's tenosynovitis Ibis-Danlos syndrome GERD (gastroesophageal reflux disease) Helicobacter pylori gastritis HTN (hypertension) Hx MRSA infection Hx of cardiac pacemaker Hx of septic shock Hx of ventricular septal defect Major depressive disorder, recurrent, moderate Seizure SVT (supraventricular tachycardia) VSD (ventricular septal defect) Surgical History H/O wrist surgery History of cardiac radiofrequency ablation (RFA) History of open heart surgery S/P appendectomy S/P cardiac pacemaker procedure S/P knee surgery S/P knee surgery Left S/P rotator cuff repair Left 08/26/2014 S/P tonsillectomy S/P vasectomy Family History Father Diabetes Other Cancer Heart disease Hypertension Stroke Social History Smoking and tobacco status: former smoker Quit status (tobacco): has quit using tobacco Year quit tobacco: 12/25/2017 Former quit date comment: 1 PPD for 10 years Second hand smoke exposure: Yes Alcohol intake: never Current gender identity: Male Physical Exam Const: COMMON NORMALS: no acute distress, patient oriented x3 and alert GENERAL APPEARANCE: cooperative and comfortable HENMT: COMMON NORMALS: normocephalic HEAD & SCALP: normocephalic MOUTH: Normal oral and palatal mucosa present THROAT: posterior oropharynx normal and uvula midline Neck/C-Spine: COMMON NORMALS: supple GENERAL: Yes normal visual inspection Resp: COMMON NORMALS: normal respiratory effort, No retractions and No use of accessory muscles EFFORT & INSPECTION: Yes Actively coughing dry AUSCULTATION: wheezes expiratory wheezes and upper bilaterally Cardio: COMMON NORMALS: regular rate, regular rhythm, S1 normal heart sound present, S2 normal heart sound present, No gallops present (Cardio), No clicks present (Cardio), No murmurs present (Cardio) and Peripheral pulses 2+ throughout RATE: regular rate RHYTHM: regular rhythm HEART SOUNDS: S1 normal heart sound present and S2 normal heart sound present PERIPHERAL PULSES: Peripheral pulses 2+ throughout GI: COMMON NORMALS: Normal to inspection, nondistended, normoactive bowel sounds present, Soft to palpation, non-tender and no masses PALPATION: Yes Soft to palpation : COMMON NORMALS: Yes no CVA tenderness BLADDER/KIDNEY EXAM: Yes no CVA tenderness Back/Pelvis: COMMON NORMALS: no CVA tenderness Extremity: COMMON NORMALS: normal to inspection Neuro: COMMON NORMALS: patient oriented x3 SENSORIUM/ORIENTATION: Yes alert GAIT: Yes Normal gait present Skin: GENERAL SKIN EXAM: dry skin Course Vital Signs: Vital signs: Vital Signs Temperature 100.8 F H 11/05/22 22:27 Pulse Rate 94 11/06/22 01:26 Respiratory Rate 16 11/06/22 01:26 Blood Pressure 122/82 11/05/22 22:27 Pulse Oximetry 98 11/06/22 01:26 Oxygen Delivery Me thod 11/05/22 22:56 MDM - COVID Medical Decision Making Patient is a 36-year-old male who comes to the ED with upper respiratory viral symptoms. Symptoms started yesterday. Endorses having fever, body aches, chills, nausea, nasal congestion and drainage and dry cough. He took a dose of Tylenol about 2 hours ago. He is able to keep p.o. food and fluids down. Denies any episodes of emesis. denies any known sick contacts. Patient has a temp of 100.8 but the rest of vitals are stable. He is sitting comfortably on exam chair in the room and he appears nontoxic and in no acute distress or pain. He has bilateral wheezing in upper lobes of lungs. Rest of exam is benign. Influenza and COVID were negative. Chest x-ray shows no acute findings. He was given a dose of ibuprofen, IM Solu-Medrol and an albuterol breathing treatment here in the ED. He was diagnosed with upper respiratory infection with cough/ congestion and wheezing. He was discharged home with a prescription for azithromycin, Medrol Dosepak and albuterol inhaler. Told to follow-up with his PCP within the next week for reevaluation. Return to ED precautions given. Patient understood and agreed with plan. Lab Data I reviewed the patient's lab results. Radiology Impressions Chest X-Ray 11/05/22 22:16 IMPRESSION: Lungs are clear. Laboratory Results Influenza Type A Ag negative (Negative) 11/05/22 22:51 Influenza Type B Ag negative (Negative) 11/05/22 22:51 SARS-CoV-2 Ag (Rapid) negative (Negative) 11/05/22 22:51 SARS-CoV-2 Antigen (Rapid) negative (Negative) 11/05/22 22:51 SARS-CoV-2 RNA (RT-PCR) Detected (NOT DETECTED) A 04/12/22 00: 19 SARS-CoV-2 (PCR) Not detected (NOT DETECT) 06/08/22 16:30 Coronavirus Type 229E (PCR) Not detected (NOT DETECT) 06/08/22 16:30 SARS Virus RNA (PCR) See comment 12/20/19 12:06 Discharge Plan Discharge Patient Disposition: Home Clinical Impression: Upper respiratory infection with cough and congestion, Wheezing Condition: Stable Prescriptions: New albuterol sulfate 90 mcg/actuation HFA aerosol inhaler 2 inh inhalation Q6H PRN (Reason: shortness of breath or wheezing) Qty: 8.5 0RF azithromycin 250 mg tablet See Rx Instructions .ROUTE .COMPLEX Qty: 6 0RF Rx Instructions: For 250 mg dose pack: take 500 mg today (day 1), then 250 mg for 4 days (days 2-5) methylprednisolone 4 mg tablets,dose pack See Rx Instructions .ROUTE .COMPLEX Qty: 21 0RF Rx Instructions: orally per package directions No Action amlodipine 5 mg tablet 5 mg PO DAILY Qty: 90 3RF trazodone 50 mg tablet See Rx Instructions PO DAILY Rx Instructions: 1-2 daily at NOC orally daily; lithium carbonate 300 mg capsule 900 mg PO DAILY amoxicillin 875 mg tablet 875 mg PO BID Qty: 14 0RF Rx Instructions: or Amox 500 TID loratadine 10 mg tablet 10 mg PO DAILY PRN (Reason: nasal drainage) Qty: 30 0RF lamotrigine 100 mg tablet 100 mg PO DAILY Discharge Orders: Discharge ED (Routine); Ordered 11/06/22 Ordered By: Jarad Kinsey Referrals: Favian Koo MD [Primary Care Provider] - Discharge Diet: Regular Discharge Activity: Increase activity as tolerated Activity Restrictions/Additional Instructions: Follow-up with medical provider as directed in the next 5 to 7 days for reevaluation. Take medications as prescribed. Take [id number] Tylenol or Motrin for any fevers. Drink plenty fluids and stay hydrated. Return to the ER or your medical provider if condition worsens. Please read and understand discharge instructions. Thank you for choosing [facility] for your healthcare needs today. Please realize this is an emergency room and that we are providing you with a medical screening exam and this may not be complete and all inclusive of all the testing and or work up that you may need to determine your ailment or severity of your illness. It is very important that you follow up as instructed or that you return to the Emergency Department should you have concerns or if your condition changes or worsens in any way. 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
[2022-11-05 23:14] LABS: Influenza A by IFA negative (Negative); Influenza B by IFA negative (Negative)
[2022-11-05 23:15] LABS: SARS Covid-2 Antigen negative (Negative)
[2022-11-05] MEDS: ibuprofen 800 mg tablet PO (23:16)
[2022-11-05] MEDS: albuterol 8 gm MDI 2 PUFF INHALATION (23:29)
[2022-11-06 01:26] VITALS: PULSE 94; RESP 16; O2SAT 98
== END 2022-11-06 01:27 | disposition home or self-care (01) ==
PROVIDERS: Emergency Medicine; Emergency Provider Physician Assistant; PCP Family Medicine
DX: J06.9 Acute upper respiratory infection, unspecified (principal); R06.2 Wheezing; Z20.822 Contact with and (suspected) exposure to COVID-19; Z87.891 Personal history of nicotine dependence; I11.0 Hypertensive heart disease with heart failure; I50.9 Heart failure, unspecified; Z95.0 Presence of cardiac pacemaker
CPT/HCPCS: 71045; 87426; 87804; 94640; 96372; 99284; J2930; J3535

== ENCOUNTER 2023-01-01 22:42 | Emergency (ER) | payer OTHER, BC, MEDICAID, SELFPAY ==
[2023-01-01 22:48] VITALS: BP 145/94; PULSE 81; RESP 15; TEMP 36.7; O2SAT 97
--- NOTE | 2023-01-01 22:56 | W.ED.GENADLT ---
HPI - General Adult General: Chief complaint: General Medical Stated complaint: Shaking Time Seen by Provider: 01/01/23 22:53 History of Present Illness: 37-year-old male patient comes in today for complaints of increased tremors over the last month. Patient takes several medications for psychiatric disorder. Patient is on Vraylar, lithium, and trazodone. Patient appears nontoxic. Patient does have an obvious tremor to both upper extremities he reports the right seems worse than the left. Patient also reports that his grandfather has a tremor. Patient denies any headache or other symptoms. Associated symptoms: Deny chest pain, dyspnea, nausea, rash or vomiting Review of Systems General: Reports: 10 or more systems reviewed and unremarkable except in HPI and below ENMT: Denies: throat pain Card: Denies: chest pain Resp: Denies: dyspnea GI: Denies: nausea or vomiting : Denies: difficulty urinating Musc: Denies: extremity pain Skin/Breast: Denies: rash Neuro: Reports: involuntary movements Psych: Denies: anxiety or depression PFSH ED PFSH: Medical History Acute pharyngitis AV heart block CHF (congestive heart failure) Congenital heart disease De Quervain's tenosynovitis Ibis-Danlos syndrome GERD (gastroesophageal reflux disease) Helicobacter pylori gastritis HTN (hypertension) Hx MRSA infection Hx of cardiac pacemaker Hx of septic shock Hx of ventricular septal defect Major depressive disorder, recurrent, moderate Seizure SVT (supraventricular tachycardia) VSD (ventricular septal defect) Surgical History H/O wrist surgery History of cardiac radiofrequency ablation (RFA) History of open heart surgery S/P appendectomy S/P cardiac pacemaker procedure S/P knee surgery S/P knee surgery Left S/P rotator cuff repair Left 08/26/2014 S/P tonsillectomy S/P vasectomy Family History Father Diabetes Other Cancer Heart disease Hypertension Stroke Social History Smoking and tobacco status: former smoker Quit status (tobacco): has quit using tobacco Year quit tobacco: 12/25/2017 Former quit date comment: 1 PPD for 10 years Second hand smoke exposure: Yes Alcohol intake: never Current gender identity: Male Physical Exam Const: COMMON NORMALS: alert HENMT: COMMON NORMALS: normocephalic HEAD & SCALP: normocephalic Neck/C-Spine: COMMON NORMALS: full ROM Resp: COMMON NORMALS: normal respiratory effort Cardio: COMMON NORMALS: regular rate and regular rhythm RATE: regular rate RHYTHM: regular rhythm GI: COMMON NORMALS: Soft to palpation and non-tender PALPATION: Yes Soft to palpation Extremity: COMMON NORMALS: normal to inspection Neuro: SENSORIUM/ORIENTATION: Yes alert and Yes other (Generalized tremor) Skin: COMMON NORMALS: no rashes or lesions noted GENERAL SKIN EXAM: no rashes or lesions noted Course Vital Signs: Vital signs: Vital Signs Temperature 98.1 F 01/01/23 22:48 Pulse Rate 77 01/01/23 23:20 Respiratory Rate 16 01/01/23 23:20 Blood Pressure 118/84 01/01/23 23:20 Pulse Oximetry 96 01/01/23 23:20 Oxygen Delivery Me thod Room Air 01/01/23 22:48 MDM - General Adult Medical Decision Making 37-year-old male patient comes in today with increasing tremors over the last month. Patient appears nontoxic. Patient reports no pain or discomfort. Patient is on medication for psychiatric disorder including a atypical antipsychotic, lithium, and trazodone. Respirations are even lungs are clear to auscultation. Skin is warm and dry. Vital signs are normal. Differential diagnosis includes but not limited to DIP, TD, anxiety. I believe the patient probably most likely has a tremor secondary to the use of the atypical antipsychotic he is on. We will start him on benztropine 1 mg twice a day to see if we can control his tremors. Recommend patient follow-up with primary care or specialist for further evaluation and treatment. Patient reported understanding of care plan and need for follow-up or return to the ER. Lab Data 01/01/23 23:45 01/01/23 23:45 Laboratory Results WBC 8.9 10^3/uL (4.0-10.0) 01/01/23 23:45 RBC 5.01 10^6/uL (4.1-5.3) 01/01/23 23:45 Hgb 14.5 g/dL (11.7-16.6) 01/01/23 23:45 Hct 42.9 % (42.0-52.0) 01/01/23 23:45 MCV 85.6 fl (80-94) 01/01/23 23:45 MCH 28.9 pg (28.0-34.0) 01/01/23 23:45 MCHC 33.8 g/dL (30.0-36.0) 01/01/23 23:45 RDW 12.6 % (12.1-15.1) 01/01/23 23:45 Plt Count 169 10^3/cmm (130-400) 01/01/23 23:45 MPV 9.8 fL (7.4-10.4) 01/01/23 23:45 Neut % (Auto) 61.0 % 01/01/23 23:45 Lymph % (Auto) 27.2 % 01/01/23 23:45 [place] % (Auto) 7.7 % 01/01/23 23:45 Eos % (Auto) 2.9 % 01/01/23 23:45 Baso % (Auto) 0.7 % 01/01/23 23:45 Neut # (Auto) 5.40 10^3/uL (1.8-7.7) 01/01/23 23:45 Lymph # (Auto) 2.4 10^3/uL (0.8-4.8) 01/01/23 23:45 [place] # (Auto) 0.7 10^3/uL (0.2-0.9) 01/01/23 23:45 Eos # (Auto) 0.3 10^3/uL (0.0-0.8) 01/01/23 23:45 Baso # (Auto) 0.1 10^3/uL (0.0-0.1) 01/01/23 23:45 Nucleated RBC % (auto) 0 % 01/01/23 23:45 Nucleated RBCs # 0.0 /100WBC 01/01/23 23:45 Sodium 139 mmol/L (136-145) 01/01/23 23:45 Potassium 3.7 mmol/L (3.5-5.1) 01/01/23 23:45 Chloride 105 mmol/L (98-107) 01/01/23 23:45 Carbon Dioxide 24 mmol/L (22-29) 01/01/23 23:45 Anion Gap 13.7 (5-19) 01/01/23 23:45 BUN 15 mg/dL (6-20) 01/01/23 23:45 Creatinine 0.9 mg/dL (0.7-1.2) 01/01/23 23:45 GFR Calculation 96.0 mL/min (90-130) 01/01/23 23:45 Glucose 90 mg/dL (65-115) 01/01/23 23:45 Calculated Osmolality 288 mOsm/kg (285-295) 01/01/23 23:45 Calcium 9.3 mg/dL (8.5-10.5) 01/01/23 23:45 Total Bilirubin 0.2 mg/dL (0.15-1.2) 01/01/23 23:45 AST 27 U/L (0-40) 01/01/23 23:45 ALT 19 U/L (0-41) 01/01/23 23:45 Alkaline Phosphatase 69 U/L (40-130) 01/01/23 23:45 Total Protein 6.7 g/dL (6.6-8.7) 01/01/23 23:45 Albumin 4.1 g/dL (3.5-5.2) 01/01/23 23:45 Globulin 2.6 g/dL (1.3-4.6) 01/01/23 23:45 [place] 0.4 mmol/L (0.6-1.2) L 01/01/23 23:45 Discharge Plan Discharge Patient Disposition: Home Clinical Impression: Drug-induced tremor Adverse drug effect Qualifiers: Encounter type: initial encounter Qualified Code(s): T50.905A - Adverse effect of unspecified drugs, medicaments and biological substances, initial encounter Condition: Stable Prescriptions: New benztropine 1 mg tablet 1 mg PO BID Qty: 60 0RF No Action amlodipine 5 mg tablet 5 mg PO DAILY Qty: 90 3RF trazodone 50 mg tablet See Rx Instructions PO DAILY Rx Instructions: 1-2 daily at [facility] orally daily; lithium carbonate 300 mg capsule 900 mg PO DAILY amoxicillin 875 mg tablet 875 mg PO BID Qty: 14 0RF Rx Instructions: or Amox 500 TID loratadine 10 mg tablet 10 mg PO DAILY PRN (Reason: nasal drainage) Qty: 30 0RF lamotrigine 100 mg tablet 100 mg PO DAILY albuterol sulfate 90 mcg/actuation HFA aerosol inhaler 2 inh inhalation Q6H PRN (Reason: shortness of breath or wheezing) Qty: 8.5 0RF azithromycin 250 mg tablet See Rx Instructions .ROUTE .COMPLEX Qty: 6 0RF Rx Instructions: For 250 mg dose pack: take 500 mg today (day 1), then 250 mg for 4 days (days 2-5) methylprednisolone 4 mg tablets,dose pack See Rx Instructions .ROUTE .COMPLEX Qty: 21 0RF Rx Instructions: orally per package directions Discharge Orders: Discharge ED (Routine); Ordered 01/02/23 Ordered By: Arden Whalen Referrals: Favian Koo MD [Primary Care Provider] - Discharge Diet: Usual diet Discharge Activity: Increase activity as tolerated Patient Instructions: Tremors (ED) Activity Restrictions/Additional Instructions: Healthy diet and activity. Continue with routine medications as directed. Take benztropine 1 mg twice a day to help with tremor. Follow-up with primary care or behavioral health healthcare administrator regarding routine medications and necessary adjustments to medications. Return to ER for new concerns. Coding Level of Care Code ED Enterprise Architect Manager for Lizz Jennings
[2023-01-01 23:20] VITALS: BP 118/84; PULSE 77; RESP 16; O2SAT 96
[2023-01-01 23:52] LABS: Basophils # 0.1 10^3/uL (0.0-0.1); Basophils % 0.7 %; Eosinophils # 0.3 10^3/uL (0.0-0.8); Eosinophils % 2.9 %; Hematocrit 42.9 % (42.0-52.0); Hemoglobin 14.5 g/dL (11.7-16.6); Lymphocytes # 2.4 10^3/uL (0.8-4.8); Lymphocytes % 27.2 %; Mean Corpuscular HGB Conc 33.8 g/dL (30.0-36.0); Mean Corpuscular Hemoglobin 28.9 pg (28.0-34.0); Mean Corpuscular Volume 85.6 fl (80-94); Mean Platelet Volume 9.8 fL (7.4-10.4); Monocytes # 0.7 10^3/uL (0.2-0.9); Monocytes % 7.7 %; Nucleated Red Blood Cells % 0 %; Platelet Count 169 10^3/cmm (130-400); Red Blood Count 5.01 10^6/uL (4.1-5.3); Red Cell Distribution Width 12.6 % (12.1-15.1); White Blood Count 8.9 10^3/uL (4.0-10.0)
[2023-01-02 00:08] LABS: Alanine Aminotransferase 19 U/L (0-41); Albumin Level 4.1 g/dL (3.5-5.2); Alkaline Phosphatase 69 U/L (40-130); Anion Gap 13.7 (5-19); Aspartate Amino Transferase 27 U/L (0-40); Blood Urea Nitrogen 15 mg/dL (6-20); Calcium 9.3 mg/dL (8.5-10.5); Carbon Dioxide 24 mmol/L (22-29); Chloride 105 mmol/L (98-107); Creatinine Clr Calc Pharmacy 141.5931; Globulin 2.6 g/dL (1.3-4.6); Glucose 90 mg/dL (65-115); Osmolality Calculated 288 mOsm/kg (285-295); Potassium 3.7 mmol/L (3.5-5.1); Sodium 139 mmol/L (136-145); Total Bilirubin 0.2 mg/dL (0.15-1.2); Total Protein 6.7 g/dL (6.6-8.7)
[2023-01-02 00:19] LABS: Lithium 0.4 mmol/L (0.6-1.2)
[2023-01-02] MEDS: benztropine 1 mg Tablet PO (00:37)
[2023-01-02 01:00] VITALS: BP 122/86; PULSE 72; RESP 16; O2SAT 96
== END 2023-01-02 01:22 | disposition home or self-care (01) ==
PROVIDERS: Emergency Provider Nurse Practitioner Family; PCP Family Medicine
DX: G25.1 Drug-induced tremor (principal); T43.505A Adverse effect of unspecified antipsychotics and neuroleptics, initial encounter; Z87.891 Personal history of nicotine dependence; I11.0 Hypertensive heart disease with heart failure; I50.9 Heart failure, unspecified; Z95.0 Presence of cardiac pacemaker; X58.XXXA Exposure to other specified factors, initial encounter
CPT/HCPCS: 80053; 80178; 85025; 99283

== ENCOUNTER 2023-06-18 14:49 | Outpatient (CLI) | payer BC, MEDICAID, SELFPAY ==
--- NOTE | 2023-06-18 15:00 | USCV_ITS ---
Ariel Rob Age: 37 Gender: M : 1985 Exam Date: 06/18/2023 15:24 Ordering Phys: Larry Hanson M.D ([email or web address]) Technologist: RHONDA [place] [facility] [place]ication: CHEST PAIN AND SHORTNESS OF BREATH BP: 130 / 90 HR: 74 Rhythm: Sinus Technical Quality: Adequate MEASUREMENTS (Male / Female) Normal Values 2D ECHO LVOT Diameter 2.0 cm LV Ejection Fraction MOD 2C 54.3 % LV Ejection Fraction 2C AL 53.4 % LA Diameter 2.9 cm LA Width 3.2 cm LA Height 4.3 cm RA Width 2.9 cm RA Height 3.7 cm Aorta at Sinotubular Diameter 2.1 cm M-MODE Aortic Annulus Diameter 2.9 cm LA Ao Ratio MM 0.9 MV E Point Septal Separation 0.7 cm DOPPLER AV Peak Velocity 131.0 cm/s LVOT Peak Velocity 95.0 cm/s AV Area Cont Eq vti 1.9 cm squared AV Area Cont Eq pk 2.3 cm squared MV Peak Velocity 142.0 cm/s MV Area PHT 3.3 cm squared Mitral E to A Ratio 1.0 MV E' Velocity 60.0 cm/s Mitral E to MV E' Ratio 8.7 Mitral E to LV E' Lateral Ratio 6.8 Mitral E to LV E' Septal Ratio 12.1 TR Peak Velocity 268.6 cm/s TR Peak Gradient 28.9 mmHg TR Mean Velocity 205.8 cm/s TR Mean Gradient 17.6 mmHg TR Velocity Time Integral 79.7 cm TV Peak E Velocity 124.0 cm/s Right Atrial Pressure 8.0 mmHg Pulmonary Artery Systolic Pressu 36.9 mmHg PV Peak Velocity 162.0 cm/s RV Acceleration Time 0.1 s RV Ejection Time 0.3 s RV AcT/ET 0.4 FINDINGS Left Ventricle Left ventricle is normal size. LV systolic function is mildly reduced with EF of 45-50%. Mild to moderate hypokinesis of apical wall Right Ventricle Not well-visualized. Pacemaker lead is seen Right Atrium Normal in size. Pacemaker lead is seen Left Atrium Normal in size Mitral Valve Structurally normal mitral valve. Mild mitral regurgitation. Aortic Valve Structurally normal aortic valve. No significant aortic stenosis or regurgitation. Tricuspid Valve Pulmonary artery systolic pressure is normal.Mild tricuspid regurgitation. Pulmonic Valve Trace pulmonic regurgitation. Pericardium Normal Aorta Normal in size IVC Not well visualized CONCLUSIONS LV systolic function is mildly reduced with EF of 45-50% Mild mitral regurgitation Mild tricuspid regurgitation Trace pulmonic regurgitation Compared to prior echocardiogram from 2021, LV systolic function is mildly reduced. Larry Hanson MD (Electronically Signed) Final Date: 04 July 2023 14:35 S
[2023-06-18] MEDS: perflutren protein-a microsphr 0.22 mg/mL SDV 3 mL IV (15:51)
== END 2023-06-18 14:50 | disposition home or self-care (01) ==
LOC: RAD 14:54
PROVIDERS: PCP Family Medicine; Visit Provider Internal Medicine
DX: R07.9 Chest pain, unspecified (principal); R06.02 Shortness of breath; I08.1 Rheumatic disorders of both mitral and tricuspid valves
CPT/HCPCS: C8929; Q9956

== ENCOUNTER 2023-08-02 19:41 | Emergency (ER) | payer BC, MEDICAID, SELFPAY ==
[2023-08-02 20:09] VITALS: BP 144/85; PULSE 86; RESP 14; TEMP 36.8; O2SAT 97
[2023-08-02] MEDS: ketorolac 60 mg/2 mL INJ IM (22:18)
[2023-08-02] MEDS: tizanidine 4 mg Tablet PO (22:19)
[2023-08-02 22:25] VITALS: RESP 14; O2SAT 99
--- NOTE | 2023-08-03 02:52 | ED_ITS ---
HPI - Extremity Problem General: Chief complaint: Extremity Injury, Upper Stated complaint: right shoulder pain Time Seen by Provider: 08/02/23 20:53 Source: patient Mode of arrival: ambulatory Limitations: no limitations History of Present Illness: Patient presents to the emergency department today accompanied by family for evaluation treatment of complaints of right shoulder and right upper back/right- sided neck pain. Patient states that he was attempting to lift a full laundry basket when he had sudden onset of pain felt in his right anterior/mid shoulder region with tightness and discomfort in the musculature of his upper back on the right side and right side of his neck. Patient denies tingling or numbness into the fingers on the right hand. 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 He denies any previous injuries to this area. 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 Review of Systems General: Reports: 10 or more systems reviewed and unremarkable except in HPI and below PFSH ED PFSH: Medical History Acute pharyngitis AV heart block CHF (congestive heart failure) Congenital heart disease De Quervain's tenosynovitis Ibis-Danlos syndrome GERD (gastroesophageal reflux disease) Helicobacter pylori gastritis HTN (hypertension) Hx MRSA infection Hx of cardiac pacemaker Hx of septic shock Hx of ventricular septal defect Major depressive disorder, recurrent, moderate Psychiatric care Seizure SVT (supraventricular tachycardia) VSD (ventricular septal defect) Surgical History H/O wrist surgery History of cardiac radiofrequency ablation (RFA) History of open heart surgery S/P appendectomy S/P cardiac pacemaker procedure S/P knee surgery S/P knee surgery Left S/P rotator cuff repair Left 08/26/2014 S/P tonsillectomy S/P vasectomy Family History Father Diabetes Other Cancer Heart disease Hypertension Stroke Social History Smoking and tobacco/nicotine status: former use of tobacco/nicotine Quit status (tobacco/nicotine): has quit using Year quit tobacco: 12/25/2017 Former quit date comment: 1 PPD for 10 years Second hand smoke exposure: Yes Alcohol intake: never Substance/Drug Use: never Current gender identity: Male Physical Exam Const: COMMON NORMALS: no acute distress, patient oriented x3 and alert HENMT: COMMON NORMALS: normocephalic, atraumatic and hearing grossly normal bilaterally HEAD & SCALP: normocephalic and atraumatic Eye: COMMON NORMALS: Equal, round and reactive pupils present, EOMs intact bilaterally and conjunctivae normal CONJUNCTIVA: Yes conjunctivae normal PUPIL: Yes Equal, round and reactive pupils present Neck/C-Spine: COMMON NORMALS: full ROM and no JVD Lymph: LYMPHATIC: no lymphadenopathy noted Resp: COMMON NORMALS: normal respiratory effort, No retractions and No use of accessory muscles Cardio: COMMON NORMALS: no JVD and regular rate RATE: regular rate Extremity: NARRATIVE EXTREMITY EXAM: Patient has preserved range of motion to the right shoulder, right elbow, and right wrist. He has reproducible tenderness on examination with palpation at the right AC joint as well as the upper back and superior right shoulder region extending up the right side of the neck. Neuro: COMMON NORMALS: patient oriented x3 SENSORIUM/ORIENTATION: Yes alert Psych: COMMON NORMALS: mental status grossly normal, Normal thought process present, cooperative and normal affect THOUGHT PROCESS: Normal thought process present Skin: COMMON NORMALS: no rashes or lesions noted and turgor normal GENERAL SKIN EXAM: no rashes or lesions noted and turgor normal Course Vital Signs: Vital signs: Vital Signs Temperature 98.2 F 08/02/23 20:09 Pulse Rate 86 08/02/23 20:09 Respiratory Rate 14 08/02/23 22:25 Blood Pressure 144/85 08/02/23 20:09 Pulse Oximetry 99 08/02/23 22:25 Oxygen Delivery Me thod Room Air 08/02/23 20:09 MDM - Extremity (Nontraumatic) Medical Decision Making Patient's pain is primarily felt at the AC joint. Palpation in this area elicits significant pain-Per the patient's report. He also has some muscular tenderness in his upper back primarily affecting the right trapezius region. Discussed with patient that with his Ibis-Danlos, it is possible that he has torn or at the AC joint. We did not obtain an x-ray as there appears to be no tenting and no piano marie sign. X-ray is most likely not reveal any si gnificant concerns which would require emergent orthopedic evaluation tonight. I am referring him on to orthopedics for follow-up as he does have a history of orthopedic surgery secondary to connective tissue issues. Also providing him some medication to help with what appears to be musculoskeletal pain and tenderness in the right upper back and trapezius region. Further discussion regarding this type of injury and clinical course provided. Patient will continue to monitor at home while he waits for his follow-up appointment. Patient verbalizes understanding and agreement to treatment plan. Differential Diagnosis Unlikely herpes zoster, gout, cellulitis, superficial thrombophlebitis or deep venous thrombosis of upper extremity No radiology studies performed this visit Discharge Plan Discharge Patient Disposition: Home Clinical Impression: AC joint derangement, Muscle strain of right upper back Condition: Stable Prescriptions: New tizanidine 4 mg capsule 4 mg PO Q8H PRN (Reason: muscle spasticity) Qty: 20 0RF methylprednisolone 4 mg tablets,dose pack See Rx Instructions PO .COMPLEX Qty: 21 0RF Rx Instructions: orally per package directions No Action trazodone 50 mg tablet See Rx Instructions PO DAILY Rx Instructions: 1-2 daily at [facility] orally daily; lithium carbonate 300 mg capsule 900 mg PO DAILY aspirin 81 mg tablet,delayed release (DR/EC) 81 mg PO DAILY modafinil 100 mg tablet 100 mg PO DAILY lurasidone [Latuda] 60 mg tablet 60 mg PO DAILY Rx Instructions: must administer with food (at least 350 calories) naproxen 500 mg tablet 500 mg PO BID PRN (Reason: pain) Qty: 15 0RF isosorbide mononitrate 30 mg tablet extended release 24 hr 30 mg PO DAILY Qty: 90 3RF albuterol sulfate 90 mcg/actuation HFA aerosol inhaler 2 inh inhalation Q6H PRN (Reason: shortness of breath or wheezing) Qty: 8.5 0RF Discharge Orders: Discharge ED (Routine); Ordered 08/02/23 Ordered By: Pauline Whitlock Referrals: Favian Koo MD [Primary Care Provider] - Patient Instructions: Acromioclavicular Separation (ED) Activity Restrictions/Additional Instructions: On your examination you have point tenderness at your AC joint. As we discussed this is the connection from your collarbone and the acromion from your shoulder blade which helps create part of your shoulder joint. Typically, the ends of these 2 bones are held together with connective tissue however, I am suspicious that you have likely torn this area-given your history of connective tissue tears. For that reason I would like you to follow-up with orthopedics for a recheck. I am also providing you some medications to help with pain and inflammation as I think it is also causing irritation and tightening of the muscles in your upper back. You can still use Tylenol and ibuprofen. Be careful of the sedating and drowsy side effect of tizanidine. Do not take this medication while driving or working. You can apply an ice pack to this area of tenderness for 15 to 20 minutes at a time, multiple times throughout the day. Coding Level of Care Code ED Water Aerobics Instructor for Lizz Jennings
--- NOTE | 2023-08-04 08:23 | DCPLANNER ---
Message sent for a follow up ortho- hx joint laxity, AC joint injury- pain
== END 2023-08-02 22:26 | disposition home or self-care (01) ==
PROVIDERS: Emergency Provider Physician Assistant; PCP Family Medicine
DX: S29.012A Strain of muscle and tendon of back wall of thorax, initial encounter (principal); M24.811 Other specific joint derangements of right shoulder, not elsewhere classified; I11.0 Hypertensive heart disease with heart failure; I50.9 Heart failure, unspecified; Z95.0 Presence of cardiac pacemaker; Z87.891 Personal history of nicotine dependence; X50.0XXA Overexertion from strenuous movement or load, initial encounter
CPT/HCPCS: 96372; 99284; J1885

== ENCOUNTER → 2023-08-12 15:16 | Outpatient (BNVA) | payer OTHER, BC, MEDICAID, SELFPAY | PROVIDERS: PCP Family Medicine; Referring Provider Physician Assistant; Visit Provider Physician Assistant | DX: S49.91XA Unspecified injury of right shoulder and upper arm, initial encounter; X58.XXXA Exposure to other specified factors, initial encounter; M75.41 Impingement syndrome of right shoulder | CPT/HCPCS: 73030 ==

== ENCOUNTER → 2023-09-23 15:43 | Outpatient (BNVA) | payer BC, MEDICAID, SELFPAY | PROVIDERS: PCP Family Medicine; Visit Provider Orthopaedic Surgery | DX: M75.41 Impingement syndrome of right shoulder (principal) | CPT/HCPCS: 99213 ==

== ENCOUNTER 2023-10-15 06:13 | Emergency (ER) | payer OTHER, BC, MEDICAID, SELFPAY ==
[2023-10-15 06:15] VITALS: BP 128/81; PULSE 73; RESP 16; TEMP 36.6; O2SAT 100; BMI 29.8
[2023-10-15 06:23] VITALS: BP 118/76; PULSE 71; RESP 16; O2SAT 99
--- NOTE | 2023-10-15 06:28 | ED_ITS ---
HPI - Chest Pain 2 General: Chief Complaint: Chest Pain Stated Complaint: chest pains Time Seen by Provider: 10/15/23 06:27 Source: patient Mode of arrival: ambulatory History of Present Illness: 37-year-old male presents to the emergen cy room with complaint of chest discomfort. He is intermittently had this for several years. Woke him up from sleep this morning. January 2022 patient went underwent angiogram that showed no significant coronary artery disease. He does have a previous history of a third-degree heart block and had a pacemaker placed. No issues with pacemaker. Chest pain is intermittent noted that while I was interviewing the patient he had several spasm-like episodes of chest pain where he would come and go. He states is typical for what has had in the past he will get some relief from nitro with nitro but usually avoids taking because it causes severe headache. MD complaint: chest pain Onset (ago): minute(s) Timing of current episode: episodic Prior episodes: Yes Onset: during rest Pain location: substernal Pain radiation: neck Severity: moderate Quality: sharp Relieving factors: nothing Exacerbating factors: nothing Associated symptoms: Deny abdominal pain, diaphoresis, dyspnea, fever(s), leg edema, nausea, palpitations, sense of impending doom, syncope or vomiting Treatment prior to arrival: none Review of Systems 2 Const: Denies: fever(s), chills or diaphoresis Card: Reports: chest pain; Denies: palpitations, irregular heart rhythm or syncope Resp: Denies: dyspnea GI: Denies: abdominal pain, nausea or vomiting : Denies: dysuria, urinary frequency or urinary urgency Musc: Denies: neck pain or back pain Skin/Breast: Denies: rash PFSH ED 2 PFSH: Medical History Psychiatric care Acute pharyngitis Helicobacter pylori gastritis Hx MRSA infection Hx of septic shock Ibis-Danlos syndrome De Quervain's tenosynovitis Major depressive disorder, recurrent, moderate Hx of cardiac pacemaker Hx of ventricular septal defect Congenital heart disease VSD (ventricular septal defect) SVT (supraventricular tachycardia) GERD (gastroesophageal reflux disease) CHF (congestive heart failure) Seizure HTN (hypertension) AV heart block Surgical History History of open heart surgery H/O wrist surgery S/P knee surgery Left S/P appendectomy S/P rotator cuff repair Left 08/26/2014 History of cardiac radiofrequency ablation (RFA) S/P cardiac pacemaker procedure S/P knee surgery S/P vasectomy S/P tonsillectomy Family History Father Diabetes Other Cancer Heart disease Hypertension Stroke Social History Smoking and tobacco/nicotine status: former use of tobacco/nicotine Quit status (tobacco/nicotine): has quit using Year quit tobacco: 12/25/2017 Former quit date comment: 1 PPD for 10 years Second hand smoke exposure: Yes Alcohol intake: never Substance/Drug Use: never Current gender identity: Male Physical Exam 2 Const: COMMON NORMALS: no acute distress GENERAL APPEARANCE: cooperative and comfortable ORIENTATION/CONSCIOUSNESS: Yes awake, Yes oriented to person, Yes oriented to place and Yes oriented to time HENMT: COMMON NORMALS: normocephalic, atraumatic and hearing grossly normal bilaterally HEAD & SCALP: normocephalic and atraumatic Resp: COMMON NORMALS: normal respiratory effort, No retractions, No use of accessory muscles and clear to auscultation bilaterally AUSCULTATION: clear to auscultation bilaterally Cardio: COMMON NORMALS: regular rate, regular rhythm and No murmurs present (Cardio) RATE: regular rate RHYTHM: regular rhythm GI: COMMON NORMALS: Soft to palpation and No hepatosplenomegaly present A USCULTATION: Yes normoactive bowel sounds PALPATION: Yes Soft to palpation, No Tenderness to palpation present (GI), No Guarding due to palpation present (GI) and Yes No hepatosplenomegaly present Extremity: COMMON NORMALS: normal to inspection, capillary refill normal, no clubbing, cyanosis or edema, no calf tenderness and no pedal edema Neuro: SENSORIUM/ORIENTATION: Yes oriented to person, Yes oriented to place and Yes oriented to time Skin: COMMON NORMALS: no rashes or lesions noted GENERAL SKIN EXAM: no rashes or lesions noted Course 2 Vital Signs: Vital signs: Vital Signs Temperature 97.9 F 10/15/23 06:15 Pulse Rate 74 10/15/23 08:00 Respiratory Rate 16 10/15/23 08:00 Blood Pressure 111/61 10/15/23 08:00 Pulse Oximetry 98 10/15/23 08:00 Oxygen Delivery Me thod Room Air 10/15/23 06:15 MDM - Chest Pain Medical Decision Making Labs and imaging reviewed EKG did not show any acute ST changes cardiac enzymes negative. Discharge patient home stop NSAIDs start pantoprazole 40 twice daily. Reviewed old records patient had previous angiogram approximately a year and a half ago that was negative for any signs of coronary artery disease Medical Records I reviewed the patient's medical records. Lab Data I reviewed the patient's lab results. 10/15/23 06:22 10/15/23 06:22 Radiology Impressions Chest X-Ray 10/15/23 06:36 IMPRESSION: No acute cardiopulmonary disease. Laboratory Results WBC 11.04 10^3/uL (3.29-11.43) 10/15/23 06:22 RBC 5.23 10^6/uL (3.85-5.65) 10/15/23 06:22 Hgb 15.30 g/dL (11.27-16.99) 10/15/23 06:22 Hct 44.9 % (37-53) 10/15/23 06:22 MCV 85.9 fl (82-101) 10/15/23 06:22 MCH 29.3 pg (27-33) 10/15/23 06:22 MCHC 34.1 g/dL (30-55) 10/15/23 06:22 RDW 12.4 % (12.1-15.1) 10/15/23 06:22 Plt Count 204 10^3/cmm (157-399) 10/15/23 06:22 MPV 9.8 fL (7.4-10.4) 10/15/23 06:22 Neut % (Auto) 61.1 % 10/15/23 06:22 Lymph % (Auto) 27.4 % 10/15/23 06:22 [place] % (Auto) 7.4 % 10/15/23 06:22 Eos % (Auto) 3.0 % 10/15/23 06:22 Baso % (Auto) 0.6 % 10/15/23 06:22 Neut # (Auto) 6.74 10^3/uL (1.8-7.7) 10/15/23 06:22 Lymph # (Auto) 3.0 10^3/uL (0.8-4.8) 10/15/23 06:22 [place] # (Auto) 0.8 10^3/uL (0.2-0.9) 10/15/23 06:22 Eos # (Auto) 0.3 10^3/uL (0.0-0.8) 10/15/23 06:22 Baso # (Auto) 0.1 10^3/uL (0.0-0.1) 10/15/23 06:22 Nucleated RBC % (auto) 0 % 10/15/23 06:22 Nucleated RBCs # 0.0 /100WBC 10/15/23 06:22 Sodium 140 mmol/L (136-145) 10/15/23 06:22 Potassium 3.9 mmol/L (3.5-5.1) 10/15/23 06:22 Chloride 104 mmol/L (98-107) 10/15/23 06:22 Carbon Dioxide 24 mmol/L (22-29) 10/15/23 06:22 Anion Gap 15.9 (5-19) 10/15/23 06:22 BUN 13 mg/dL (6-20) 10/15/23 06:22 Creatinine 0.9 mg/dL (0.7-1.2) 10/15/23 06:22 GFR Calculation 96.0 mL/min (90-130) 10/15/23 06:22 Glucose 101 mg/dL (65-115) 10/15/23 06:22 Calculated Osmolality 290 mOsm/kg (285-295) 10/15/23 06:22 Calcium 9.4 mg/dL (8.5-10.5) 10/15/23 06:22 Total Bilirubin 0.2 mg/dL (0.15-1.2) 10/15/23 06:22 AST 28 U/L (0-40) 10/15/23 06:22 ALT 22 U/L (0-41) 10/15/23 06:22 Alkaline Phosphatase 92 U/L (40-130) 10/15/23 06:22 Troponin T Baseline < 6 ng/L (0-15) 10/15/23 06:22 Troponin T 120 Minute 6.00 ng/L (0-15) 10/15/23 08:23 Delta Troponin T 0.67529 ABS# (0-10) 10/15/23 08:23 Total Protein 7.1 g/dL (6.6-8.7) 10/15/23 06:22 Albumin 4.5 g/dL (3.5-5.2) 10/15/23 06:22 Globulin 2.6 g/dL (1.3-4.6) 10/15/23 06:22 All radiology interpretation(s) finalized by discharge Discharge Plan Discharge Patient Disposition: Home Clinical Impression: Atypical chest pain, Chest pain due to gastrointestinal reflux disease, Chronic GERD Condition: Stable Prescriptions: New pantoprazole 40 mg tablet,delayed release (DR/EC) 40 mg PO BID Qty: 60 0RF Discontinued ibuprofen 200 mg Tablet 800 mg PO Q6H PRN (Reason: Pain) No Action lithium carbonate 300 mg capsule 900 mg PO BEDTIME aspirin 81 mg tablet,delayed release (DR/EC) 81 mg PO QAM modafinil 100 mg tablet 100 mg PO QAM tizanidine 4 mg capsule 4 mg PO Q8H PRN (Reason: muscle spasticity) Qty: 20 0RF acetaminophen 500 mg Tablet 1,000 mg PO Q6H PRN (Reason: Pain) trazodone 300 mg tablet 300 mg PO BEDTIME lurasidone 80 mg Tablet 80 mg PO QPM Rx Instructions: must administer with food (at least 350 calories) Viibryd 20 mg Tablet 20 mg PO DAILY Rx Instructions: must administer with a meal/food Discharge Orders: Discharge ED (Routine); Ordered 10/15/23 Ordered By: Tony Mehta Referrals: Favian Koo MD [Primary Care Provider] - Discharge Diet: As Directed Patient Instructions: Diet for Stomach Ulcers and Gastritis (ED), Opioid Safety, Pain Management Activity Restrictions/Additional Instructions: Thank you for choosing [facility] for your healthcare needs today. Please realize this is an emergency room and that we are providing you with a medical screening exam and this may not be complete and all inclusive of all the testing and or work up that you may need to determine your ailment or severity of your illness. It is very important that you follow up as instructed or that you return to the Emergency Department should you have concerns or if your condition changes or worsens in any way. You are seen today with complaint of chest pain your cardiac enzymes and EKG were normal. Coronary angiogram done in January 2022 did not show any evidence of coronary artery disease. Suspect the chest discomfort your experiencing is likely due to reflux that may be worsening. Recommend you not take any anti- inflammatory such as ibuprofen or Aleve. In addition start pantoprazole 40 mg twice daily follow-up with your primary care doctor to reevaluate the next 1 to 2 weeks if symptoms persist she may require further evaluation including possible EGD Coding Level of Care Code ED Br[facility] [employer] Former for Lizz Jennings
--- NOTE | 2023-10-15 06:36 | XRR_ITS ---
PROCEDURE INFORMATION: Exam: XR Chest Exam date and time: 10/15/2023 6:39 AM Age: 37 years old Clinical indication: Pain; Chest pressure; Prior surgery; Surgery date: 6+ months; Surgery type: Open heart pacer; Additional info: Chest pain TECHNIQUE: Imaging protocol: Radiologic exam of the chest. Views: 1 view. COMPARISON: CR (CHEST, ) 11/05/2022 11:12 PM FINDINGS: Tubes, catheters and devices: Two lead pacemaker/defibrillator. Median sternotomy suture wires. Lungs: Unremarkable. No consolidation. Pleural spaces: Unremarkable. No pleural effusion. No pneumothorax. Heart/Mediastinum: Unremarkable. No cardiomegaly. Bones/joints: Unremarkable. XR/XR chest 1V portable [id number] IMPRESSION: No acute cardiopulmonary disease.
--- NOTE | 2023-10-15 06:37 | ECG_ITS ---
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 Measurements Intervals [place] Rate: 83 P: 128 WV: 174 QRS: 269 QRSD: 197 T: 90 QT: 467 QTc: 550 Interpretive Statements ELECTRONIC ATRIAL PACEMAKER ELECTRONIC VENTRICULAR PACEMAKER Compared to ECG 06/08/2022 18:19:21 No significant changes Electronically Signed On 10-15-2023 18:31:29 PAI GOW DEALER by Larry Hanson M.D. [email or web address] [employer] [facility] [employer] ([employer] centerCrowdPlatbluffton hospital.[employer]/store/[id number] f
[2023-10-15] MEDS: aspirin 81 mg Chew Tablet 324 MG PO (06:40)
[2023-10-15] MEDS: lidocaine 2% viscous 15 ML, aluminum-mag hydrox-simethicon 30 ML, sucralfate oral liq 1 GM PO (06:42)
[2023-10-15 06:48] LABS: Basophils # 0.1 10^3/uL (0.0-0.1); Basophils % 0.6 %; Eosinophils # 0.3 10^3/uL (0.0-0.8); Hematocrit 44.9 % (37-53); Lymphocytes % 27.4 %; Mean Corpuscular HGB Conc 34.1 g/dL (30-55); Mean Corpuscular Hemoglobin 29.3 pg (27-33); Mean Corpuscular Volume 85.9 fl (82-101); Mean Platelet Volume 9.8 fL (7.4-10.4); Monocytes # 0.8 10^3/uL (0.2-0.9); Monocytes % 7.4 %; Neutrophils # 6.74 10^3/uL (1.8-7.7); Neutrophils % 61.1 %; Nucleated Red Blood Cells % 0 %; Platelet Count 204 10^3/cmm (157-399); Red Blood Count 5.23 10^6/uL (3.85-5.65); Red Cell Distribution Width 12.4 % (12.1-15.1); White Blood Count 11.04 10^3/uL (3.29-11.43)
[2023-10-15 06:57] LABS: Alanine Aminotransferase 22 U/L (0-41); Albumin Level 4.5 g/dL (3.5-5.2); Alkaline Phosphatase 92 U/L (40-130); Anion Gap 15.9 (5-19); Aspartate Amino Transferase 28 U/L (0-40); Blood Urea Nitrogen 13 mg/dL (6-20); Calcium 9.4 mg/dL (8.5-10.5); Carbon Dioxide 24 mmol/L (22-29); Chloride 104 mmol/L (98-107); Globulin 2.6 g/dL (1.3-4.6); Glucose 101 mg/dL (65-115); Osmolality Calculated 290 mOsm/kg (285-295); Potassium 3.9 mmol/L (3.5-5.1); Sodium 140 mmol/L (136-145); Total Bilirubin 0.2 mg/dL (0.15-1.2); Total Protein 7.1 g/dL (6.6-8.7)
[2023-10-15 06:58] LABS: Troponin(5th) Baseline < 6 ng/L (0-15)
[2023-10-15 08:00] VITALS: BP 111/61; PULSE 74; RESP 16; O2SAT 98
--- NOTE | 2023-10-15 08:27 | ECG_ITS ---
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 Measurements Intervals [place] Rate: 70 P: 87 MA: 181 QRS: -80 QRSD: 196 T: 84 QT: 485 QTc: 525 Interpretive Statements ELECTRONIC ATRIAL PACEMAKER ELECTRONIC VENTRICULAR PACEMAKER Compared to ECG 10/15/2023 06:17:23 No significant changes Electronically Signed On 10-15-2023 18:34:45 FROG CATCHER by Larry Hanson M.D. [email or web address]Cand[facility] Holdingsneshoba county general hospitalTuttoparkview health bryan hospitalBull [employer]/store/OM/[id number]
[2023-10-15 08:54] LABS: Troponin 5 2HR Delta 0.00001 ABS# (0-10)
== END 2023-10-15 09:29 | disposition home or self-care (01) ==
PROVIDERS: Emergency Provider Family Medicine; PCP Family Medicine
DX: R07.89 Other chest pain (principal); K21.9 Gastro-esophageal reflux disease without esophagitis; Z79.82 Long term (current) use of aspirin; Z87.891 Personal history of nicotine dependence; Z95.0 Presence of cardiac pacemaker; I11.0 Hypertensive heart disease with heart failure; I50.9 Heart failure, unspecified
CPT/HCPCS: 36415; 71045; 80053; 84484; 85025; 93005; 99285

== ENCOUNTER 2023-11-28 02:04 | Emergency (ER) | payer OTHER, BC, MEDICAID, SELFPAY ==
[2023-11-28 02:08] VITALS: BP 154/113; PULSE 80; RESP 20; TEMP 36.9; O2SAT 98; BMI 27.1
[2023-11-28 02:11] VITALS: PULSE 77; RESP 18; O2SAT 98
[2023-11-28] MEDS: silver sulfadiazine cream 1% 50 gm 1 APPLIC TOPICAL (02:57)
[2023-11-28] MEDS: methylPREDNISolone sod succ 125 mg/2 mL INJ IVP (02:57)
[2023-11-28] MEDS: diphenhydrAMINE 50 mg/mL SDV 1mL IM (02:57)
--- NOTE | 2023-11-28 03:06 | PC.NURSE ---
Patient reports that the burning in his hand is worse after soaking in Peroxide. Dr Christensen notified and will place orders.
--- NOTE | 2023-11-28 03:38 | ED_ITS ---
HPI - Burn/Smoke Inhalation General: Chief complaint: Burn/Smoke Inhalation Stated complaint: chemical burn to right hand Time Seen by Provider: 11/28/23 02:08 History of Present Illness: 37-year-old male presents emergency depa rtment with complaints that he has [place] exposure to his right hand left forearm and his forehead. 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 He states that he mixed his hot sauce with his hand and he has since noticed a burning sensation that will not relieve with home remedies such as salt application, acetic acid application, rubbing alcohol or dish soap and water. He states it relieves for a little bit and then starts breathing again. He states the burning type pain is a 10 out of 10 and intolerable. He states he does not have any difficulty moving his hands. Review of Systems General: Reports: 10 or more systems reviewed and unremarkable except in HPI and below Skin/Breast: Reports: skin pain PFSH ED PFSH: Medical History Psychiatric care Acute pharyngitis Helicobacter pylori gastritis Hx MRSA infection Hx of septic shock Ibis-Danlos syndrome De Quervain's tenosynovitis Major depressive disorder, recurrent, moderate Hx of cardiac pacemaker Hx of ventricular septal defect Congenital heart disease VSD (ventricular septal defect) SVT (supraventricular tachycardia) GERD (gastroesophageal reflux disease) CHF (congestive heart failure) Seizure HTN (hypertension) AV heart block Surgical History History of open heart surgery H/O wrist surgery S/P knee surgery Left S/P appendectomy S/P rotator cuff repair Left 08/26/2014 History of cardiac radiofrequency ablation (RFA) S/P cardiac pacemaker procedure S/P knee surgery S/P vasectomy S/P tonsillectomy Family History Father Diabetes Other Cancer Heart disease Hypertension Stroke Social History Smoking and tobacco/nicotine status: former use of tobacco/nicotine Quit status (tobacco/nicotine): has quit using Year quit tobacco: 12/25/2017 Former quit date comment: 1 PPD for 10 years Second hand smoke exposure: Yes Alcohol intake: never Substance/Drug Use: never Current gender identity: Male Physical Exam Const: COMMON NORMALS: no acute distress, patient oriented x3 and alert HENMT: COMMON NORMALS: normocephalic, atraumatic, Normal external nose present and moist oral mucous membranes HEAD & SCALP: normocephalic and atraumatic NOSE: Normal external nose present Eye: COMMON NORMALS: Equal, round and reactive pupils present and EOMs intact bilaterally PUPIL: Yes Equal, round and reactive pupils present Neck/C-Spine: COMMON NORMALS: full ROM and supple Resp: COMMON NORMALS: normal respiratory effort, No retractions and clear to auscultation bilaterally AUSCULTATION: clear to auscultation bilaterally Cardio: COMMON NORMALS: regular rate, regular rhythm, S1 normal heart sound present, S2 normal heart sound present and Peripheral pulses 2+ throughout RATE: regular rate RHYTHM: regular rhythm HEART SOUNDS: S1 normal heart sound present and S2 normal heart sound present PERIPHERAL PULSES: Peripheral pulses 2+ throughout GI: COMMON NORMALS: Normal to inspection, nondistended, normoactive bowel sounds present, Soft to palpation and non-tender PALPATION: Yes Soft to palpation Extremity: COMMON NORMALS: normal to inspection, full ROM and capillary refill normal Neuro: COMMON NORMALS: patient oriented x3 SENSORIUM/ORIENTATION: Yes alert Psych: COMMON NORMALS: mental status grossly normal, Normal thought process present, cooperative and normal affect THOUGHT PROCESS: Normal thought process present Skin: GENERAL SKIN EXAM: erythema LESIONS: no lesions RASHES: rashes noted (Area of redness to the left forehead.) Course Vital Signs: Vital signs: Vital Signs Temperature 98.4 F 11/28/23 02:08 Pulse Rate 72 11/28/23 04:08 Respiratory Rate 16 11/28/23 04:08 Blood Pressure 154/113 11/28/23 02:08 Pulse Oximetry 97 11/28/23 04:08 Oxygen Delivery Me thod Room Air 11/28/23 02:11 MDM - Burn/Smoke Inhalation Medical Decision Making Physical exam completed and documented, I have provided Silvadene and I wet dressing to the right hand. We have also provided Solu-Medrol as well as Benadryl and patient states he does have moderate relief. Medical Records I reviewed the patient's medical records. No radiology studies performed this visit Discharge Plan Discharge Patient Disposition: Home Clinical Impression: Pain in right hand Contact dermatitis Qualifiers: Contact dermatitis type: irritant Contact dermatitis trigger: food in contact with skin Qualified Code(s): L24.6 - Irritant contact dermatitis due to food in contact with skin Condition: Stable Prescriptions: New Silvadene 1 % cream 1 applic topical BID PRN (Reason: wound healing) Qty: 25 0RF Rx Instructions: apply a 1.5 mm thickness prednisone 20 mg tablet 40 mg PO DAILY 5 Days Qty: 10 0RF hydroxyzine HCl 25 mg tablet 25 mg PO TID PRN (Reason: Itching/burning) Qty: 20 0RF No Action lithium carbonate 300 mg capsule 900 mg PO BEDTIME aspirin 81 mg tablet,delayed release (DR/EC) 81 mg PO QAM modafinil 100 mg tablet 100 mg PO QAM tizanidine 4 mg capsule 4 mg PO Q8H PRN (Reason: muscle spasticity) Qty: 20 0RF acetaminophen 500 mg Tablet 1,000 mg PO Q6H PRN (Reason: Pain) trazodone 300 mg tablet 300 mg PO BEDTIME lurasidone 80 mg Tablet 80 mg PO QPM Rx Instructions: must administer with food (at least 350 calories) Viibryd 20 mg Tablet 20 mg PO DAILY Rx Instructions: must administer with a meal/food pantoprazole 40 mg tablet,delayed release (DR/EC) 40 mg PO BID Qty: 60 0RF Discharge Orders: Discharge ED (Routine); Ordered 11/28/23 Ordered By: Paolo Christensen Referrals: Favian Koo MD [Primary Care Provider] - Discharge Diet: Usual diet Discharge Activity: Resume usual activity Patient Instructions: Opioid Safety, Pain Management Activity Restrictions/Additional Instructions: Activity Restrictions/Additional Instructions: Thank you for choosing [facility] for your healthcare needs today. Please realize that you were seen in the Emergency Department and that we are providing you with an emergency medical screening exam and this may not be a complete and all inclusive of all the testing and or medical work-up that you may need to determine your ailment or severity of your illness. It is very important that you follow-up as instructed with your Primary care provider or Specialist for additional evaluation and to discuss your medical treatment plan. Coding Level of Care Code ED Hog Ringer for Lizz Jennings
--- NOTE | 2023-11-28 03:46 | PC.NURSE ---
Rounding with patient post Phillip, Solu-medrolbud. Pt states that the pain was better for a short time and has now returned. Dr Christensen notified and instructed to apply more oint, wet dressing with sterile water.
[2023-11-28 04:08] VITALS: PULSE 72; RESP 16; O2SAT 97
== END 2023-11-28 04:09 | disposition home or self-care (01) ==
PROVIDERS: Emergency Provider Internal Medicine; PCP Family Medicine
DX: L24.6 Irritant contact dermatitis due to food in contact with skin (principal); M79.641 Pain in right hand; Z79.82 Long term (current) use of aspirin; Z87.891 Personal history of nicotine dependence; Z95.0 Presence of cardiac pacemaker; I11.0 Hypertensive heart disease with heart failure; I50.9 Heart failure, unspecified
CPT/HCPCS: 96372; 96374; 99284; J1200; J2930

== ENCOUNTER → 2024-01-06 15:38 | Outpatient (BNVA) | payer OTHER, BC, MEDICAID, SELFPAY | PROVIDERS: PCP Family Medicine; Visit Provider Orthopaedic Surgery | DX: M25.511 Pain in right shoulder (principal); M75.41 Impingement syndrome of right shoulder | CPT/HCPCS: 73030 ==